=== PATIENT | female | born 1960 | race Caucasian/White ===

== ENCOUNTER 2016-07-21 13:12 | Emergency (ER) | payer OTHER ==
[2016-07-21 13:19] VITALS: TEMP 98.1; BMI 29.2
[2016-07-21] MEDS ORDERED: dilTIAZem HCL 50 MG/10 ML - 10 ML VIAL ONE (13:55)
--- NOTE | 2016-07-21 14:26 | PDOC ---
History of Present Illness <FreddieJolly - Last Filed: 07/21/16 15:17> - General History Source: Patient Exam Limitations: No Limitations <Arabella Burr - Last Filed: 07/21/16 16:37> - General Chief Complaint: Tachycardia Stated Complaint: IRREGULAR HEARTBEAT Time Seen by Provider: 07/21/16 13:47 - History of Present Illness Initial Comments: 07/21/16 14:59 The patient is a 56 year old female with a past medical hx of AFib, fibromyalgia and HTN who presents to the ED complaining of palpitations since this morning. The patient states she was asleep and she woke up from the palpitations, but denies any chest pain. The patient notes she has an implantable manager cardiac cath that was placed 4 months ago. The patient states she saw her Assistant Business Manager, Dr. Cedillo, 4 weeks ago and has her heart monitored with the implant. The patient also notes she had an unremarkable stress test recently and denies a hx of [place]. The patient denies any recent travel. She is compliant with her medication. The patient denies vomiting, nausea, diarrhea The patient denies SOB The patient denies fever, chills Allergies: NKDA Social: No toxic habits reported Surgical: Appendectomy, intestinal resection PCP: Dr. Willams Assistant Business Manager: Dr. Cedillo (Jolly Frazier) Past History <Jolly Frazier - Last Filed: 07/21/16 15:17> - Past Medical History Anemia: No Asthma: No Cancer: No Cardiac Disorders: Yes (murmer, atrial fibrillation) CVA: Yes (tia ?) COPD: No CHF: No Dementia: No Diabetes: No GI Disorders: Yes (DIVERTICULOSIS; POLYP STOMACH; REFLUX; H/H) Disorders: No HTN: Yes Hypercholesterolemia: No Liver Disease: No Suicide Attempt (Hx): No Seizures: No Thyroid Disease: No - Surgical History Abdominal Surgery: Yes Appendectomy: Yes Cardiac Surgery: No Cholecystectomy: Yes GI Surgery: Yes (INTETINAL RESECTION) Lung Surgery: No Neurologic Surgery: No Orthopedic Surgery: No - Immunization History Immunization Up to Date: Yes - Psycho/Social/Smoking Cessation Hx Anxiety: No Suicidal Ideation: No Smoking Status: No Smoking History: Never smoked Have you smoked in the past 12 months: No Number of Cigarettes Smoked Daily: 0 If you are a former smoker, when did you quit?: 1988 Information on smoking cessation initiated: No 'Breaking Loose' booklet given: 05/12/12 Hx Alcohol Use: No Drug/Substance Use Hx: No Substance Use Type: None Hx Substance Use Treatment: No <Arabella Burr - Last Filed: 07/21/16 16:37> - Past Medical History Allergies/Adverse Reactions: Allergies Allergy/AdvReac Type Severity Reaction Status Date / Time No Known Allergies Allergy Verified 07/21/16 13:19 Home Medications: Ambulatory Orders Metoprolol Succinate [Toprol XL -] 12.5 mg PO DAILY 11/15/14 Diltiazem Cd [Cardizem Cd -] 0 mg PO DAILY 07/21/16 Rivaroxaban [Xarelto -] 0 mg PO DAILY 07/21/16 Cardiac Specific PMH - Complaint Specific PMHX Pacemaker: No <Arabella Burr - Last Filed: 07/21/16 16:37> Review of Systems - Review of Systems Able to Perform ROS?: Yes <Jolly Frazier - Last Filed: 07/21/16 15:17> <Arabella Burr - Last Filed: 07/21/16 16:37> - Review of Systems Comments:: 07/21/16 15:01 GENERAL/CONSTITUTIONAL: No: fever, chills, weakness, loss of appetite. HEAD, EYES, EARS, NOSE AND THROAT: No: change in vision, ear pain, discharge, sore throat, throat swelling. CARDIOVASCULAR: +Palpitations. No: chest pain, lightheadedness, syncope RESPIRATORY: No: cough, shortness of breath, wheezing, hemoptysis, stridor. GASTROINTESTINAL: No: nausea, vomiting, abdominal cramping, diarrhea, rectal bleeding, constipation. GENITOURINARY: No: dysuria, hematuria, frequency, urgency, flank pain. MUSCULOSKELETAL: No: back pain, neck pain, joint pain, muscle swelling or pain SKIN: No: lesions, pallor, rash or easy bruising. NEUROLOGIC: No: headache, vertigo, paresthesias, weakness ENDOCRINE: No: unexplained weight gain or loss HEMATOLOGIC/LYMPHATIC: No: anemia, easy bleeding, swelling nodes (Jolly Frazier ) *Physical Exam <Jolly Frazier - Last Filed: 07/21/16 15:17> <Arabella Burr - Last Filed: 07/21/16 16:37> - Vital Signs Last Vital Signs Temp Pulse Resp BP Pulse Ox 98.1 F 74 16 125/74 100 07/21/16 13:17 07/21/16 15:57 07/21/16 15:57 07/21/16 15:57 07/21/16 15:57 - Physical Exam Comments: 07/21/16 15:01 GENERAL: The patient is in no acute distress. HEAD: Normal with no signs of trauma. EYES: PERRLA, EOMI, sclera anicteric, conjunctiva clear. ENT: Ears normal, nares patent, oropharynx clear without exudates. Moist mucous membranes. NECK: Normal range of motion, supple without lymphadenopathy, JVD, or masses. LUNGS: Breath sounds equal, clear to auscultation bilaterally. No wheezes, and no crackles. HEART: +Irregularly irregular without murmur, rub or gallop. ABDOMEN: Soft, nontender, normoactive bowel sounds. No guarding, no rebound. EXTREMITIES: Normal range of motion, no edema. No clubbing or cyanosis. No erythema, or tenderness. NEUROLOGICAL: Cranial nerves II through XII grossly intact. Normal speech. No focal neurological deficits. MUSCULOSKELETAL: Back nontender to palpation, no CVA tenderness SKIN: Warm, Dry, normal turgor, no rashes or lesions noted. (Jolly Frazier) Heart Score/ECG Review #1 ECG reviewed & interpreted by me at: 16:36 <Arabella Burr - Last Filed: 07/21/16 16:37> #1 07/21/16 16:36 Twelve-lead EKG was performed and reviewed by me. Afib rate of 123 bpm. The axis is normal. The intervals are normal - QRS: 80ms, QTc:481ms. There are no ST elevations or depressions. non specific T wave changes (Arabella Burr) ED Treatment Course - LABORATORY CBC & Chemistry Diagram: 07/21/16 14:10 07/21/16 14:10 <Jolly Frazier - Last Filed: 07/21/16 15:17> - LABORATORY CBC & Chemistry Diagram: 07/21/16 14:10 07/21/16 14:10 <Arabella Burr - Last Filed: 07/21/16 16:37> - ADDITIONAL ORDERS Additional order review: Laboratory Results 07/21/16 07/21/16 14:10 14:09 INR 1.51 H PTT (Actin FS) 43.0 H Sodium 138 Potassium 4.0 Chloride 108 H Carbon Dioxide 27 Anion Gap 3 L BUN 13 Creatinine 0.7 Creat Clearance w eGFR > 60 Random Glucose 98 Calcium 8.9 Total Bilirubin 0.4 D AST 16 ALT 20 Alkaline Phosphatase 153 H Creatine Kinase 82 Troponin I < 0.02 Total Protein 7.5 Albumin 3.7 07/21/16 14:10 RBC 4.82 MCV 80.3 MCHC 32.1 RDW 15.5 MPV 8.6 Neutrophils % 58.8 Lymphocytes % 34.3 Monocytes % 4.8 Eosinophils % 1.3 Basophils % 0.8 Medical Decision Making <Jolly Frazier - Last Filed: 07/21/16 15:17> <Arabella Burr - Last Filed: 07/21/16 16:37> - Medical Decision Making 07/21/16 15:[address] Cedillo at 1422, awaiting call back 07/21/16 15:[address] Ventura's office. (Jolly Frazier) 07/21/16 15:39 A portion of this note was documented by scribe services under my direction. I have reviewed the details of the note, within reason, and agree with the documentation with the following case summary and management plan written by me. Nursing documentation reviewed and incorporated into medical decision making This pt is a 56 yo F 07/21/16 15:40 Laboratory Tests 07/21/16 07/21/16 14:10 14:10 WBC 6.9 Hgb 12.4 Hct 38.7 Plt Count 329 D Sodium 138 Potassium 4.0 Chloride 108 H Carbon Dioxide 27 BUN 13 Creatinine 0.7 Random Glucose 98 Alkaline Phosphatase 153 H Creatine Kinase 82 Troponin I < 0.02 Pt seen in the ER by Dr. Cedillo in the ER Pt can be discharged to home Pt should be on a higher dose of Metoprolol (50mg po daily) I have contacted Dr Ventura He is not available to speak with me now I have contacted [employer] to interrogate her Loop recorder (La[employer]wan [phone] ) I left a voicemail Pt will be discharged to home follow up with Assistant Business Manager within 1 week Clinical impression: Afib with RVR (Arabella Burr) *DC/Admit/Observation/Transfer <Jolly Frazier - Last Filed: 07/21/16 15:17> - Discharge Dispostion Admit: No <Arabella Burr - Last Filed: 07/21/16 16:37> Diagnosis at time of Disposition: Atrial fibrillation with RVR - Discharge Dispostion Disposition: HOME Condition at time of disposition: Improved - Referrals Referrals: Adrianna Willams MD [Primary Care Provider] - - Patient Instructions Printed Discharge Instructions: DI for Atrial Fibrillation Additional Instructions: Ms Stewart Thank you for coming to the ER today Please increase your metoprolol (I will send you with a new prescription) Please follow up with your Cardiololgist within 1 week Return to the ER immediately for any new symptoms, concerns or complaints - Post Discharge Activity Work/School Note: Back to Work - Attestations Scribe Attestion: 07/21/16 15:02 Documentation prepared by Jolly Frazier, acting as medical delivery driver for Arabella Burr MD/DO. (Jolly Frazier)
[2016-07-21 14:38] LABS: BASOPHIL 0.8 % (0-2.0); EOSINOPHIL 1.3 % (0-4.5); MCH 25.8 pg (25.7-33.7); MCHC 32.1 g/dl (32.0-36.0); MEAN CELL VOLUME 80.3 fl (80-96); MEAN PLT VOLUME 8.6 fl (7.5-11.1); NEUTROPHILS 58.8 % (42.8-82.8); PLATELET COUNT 329 K/MM3 (134-434); RDW 15.5 % (11.6-15.6); WHITE BLOOD COUNT 6.9 K/mm3 (4.0-10.0)
[2016-07-21 14:54] LABS: ALBUMIN 3.7 g/dl (3.4-5.0); ANION GAP 3 (8-16); BILIRUBIN,TOTAL 0.4 mg/dL (0.2-1.0); CALCIUM 8.9 mg/dL (8.5-10.1); CO2 27 mmol/L (21-32); CREATININE 0.7 mg/dL (0.55-1.02); GLUCOSE,RANDOM 98 mg/dL (74-106); SGOT/AST 16 U/L (15-37); SGPT/ALT 20 U/L (12-78); TOT PROT 7.5 g/dl (6.4-8.2)
[2016-07-21 14:56] LABS: ALK PHOS 153 U/L (45-117); TROPONIN I < 0.02 ng/ml (0.00-0.05)
--- NOTE | 2016-07-21 15:01 | CONSULT ---
Consult Consult Specialty:: cardiology Reason for Consultation:: palpitations; shortness of breath - History of Present Illness History of Present Illness: 56 year old female with a past medical hx of AFib, fibromyalgia and HTN who presents to the ED complaining of palpitations since this morning. The patient states she was asleep and she woke up from the palpitations, but denies any chest pain. The patient notes she has an implantable bus driver/monitor that was placed 4 months ago. The patient states she saw her Grinding Wheel Inspector, Dr. Cedillo , 4 weeks ago and has her heart monitored with the implant. Unremarkable stress test recently and denies a hx of [place]. The patient denies any recent travel. She is compliant with her medications. The patient denies vomiting, nausea, diarrhea The patient denies SOB The patient denies fever, chills Allergies: NKDA Social: No toxic habits reported Surgical: Appendectomy, intestinal resection PCP: Dr. Willams Grinding Wheel Inspector: Dr. 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: Other (Restless legs syndrome) Cardio/Vascular: Yes: HTN, Murmur (H/O Rheumatoid fever in childhood), Other ( rheumatic fever) Gastrointestinal: Yes: Diverticulitis ...LMP: 06/12/14 Heme/Onc: No: Anemia Rheumatology: Yes: Fibromyalgia - Past Surgical History Past Surgical History: Yes: Appendectomy, Cholecystectomy, Tonsillectomy - Alcohol/Substance Use Hx Alcohol Use: No History of Substance Use: reports: None - Smoking History Smoking history: Never smoked Have you smoked in the past 12 months: No Aproximately how many cigarettes per day: 0 If you are a former smoker, when did you quit?: 1988 - Social History ADL: Independent Occupation: unemployed History of Recent Travel: No Home Medications - Allergies Allergies/Adverse Reactions: Allergies Allergy/AdvReac Type Severity Reaction Status Date / Time No Known Allergies Allergy Verified 07/21/16 13:19 - Home Medications Home Medications: Ambulatory Orders Rivaroxaban [Xarelto -] 20 mg PO DAILY #0 09/22/16 Family Disease History - Family Disease History Family Disease History: Heart Disease: Mother ( [place]), [place]: Father (dying from prostate [place]) Review of Systems - Review of Systems Constitutional: reports: No Symptoms Eyes: reports: No Symptoms HENT: reports: No Symptoms Neck: reports: No Symptoms Cardiovascular: reports: Palpitations Respiratory: reports: No Symptoms Gastrointestinal: reports: No Symptoms Genitourinary: reports: No Symptoms Breasts: reports: No Symptoms Reported Musculoskeletal: reports: No Symptoms Integumentary: reports: No Symptoms Neurological: reports: No Symptoms Endocrine: reports: No Symptoms Hematology/Lymphatic: reports: No Symptoms Psychiatric: reports: No Symptoms - Risk Factors Known Risk Factors: Yes: Age, Hypertension Vital Signs: Vital Signs Temperature 98.1 F 07/21/16 13:17 Pulse Rate 123 H 07/21/16 13:17 Respiratory Rate 18 07/21/16 13:17 Blood Pressure 135/102 07/21/16 13:17 O2 Sat by Pulse Oximetry (%) 100 07/21/16 13:17 Constitutional: Yes: Anxious Eyes: Yes: WNL HENT: Yes: WNL Neck: Yes: WNL Respiratory: Yes: WNL Gastrointestinal: Yes: Soft Renal/: No: Anuria Cardiovascular: Yes: Tachycardia, Pulse Irregular JVD: No Carotid Bruit: No PMI: Non-Displaced Heart Sounds: Yes: S1 (varies in intensity), S2 Murmur: Yes: Systolic Murmur, Grade 1 Musculoskeletal: Yes: WNL Extremities: Yes: WNL Edema: No Peripheral Pulses WNL: Yes Integumentary: Yes: WNL Neurological: Yes: WNL Psychiatric: Yes: Other (anxiety) - Other Data Labs, Other Data: CBC, BMP 07/21/16 14:10 07/21/16 14:10 Troponin, BNP 07/21/16 14:10 Troponin I < 0.02 Troponin, BNP 07/21/16 14:10 Troponin I < 0.02 Imaging - Results EKG: Image Reviewed (AF, RVR) Problem List - Problems (1) Atrial fibrillation with RVR Assessment/Plan: On metoprolol and diltiazem for HR control. On rivaroxaban for anticoagulation. F/u serial EKG, telemetry. Serial TNIs. TSH. Hydration. ECHO for LVEF. Interroate Reveal Link monitor. Code(s): I48.91 - UNSPECIFIED ATRIAL FIBRILLATION (2) Hypertension Code(s): I10 - ESSENTIAL (PRIMARY) HYPERTENSION Qualifiers: Hypertension type: essential hypertension Qualified Code(s): I10 - Essential (primary) hypertension (3) Overweight Code(s): E66.3 - OVERWEIGHT (4) Palpitations Code(s): R00.2 - PALPITATIONS (5) Sorethroat Code(s): J02.9 - ACUTE PHARYNGITIS, UNSPECIFIED
[2016-07-21 15:22] LABS: INR 1.51 (0.82-1.09); PROTHROMBIN TIME (PATIENT) 16.7 SEC (9.98-11.88)
[2016-07-21 16:02] VITALS: BP 125/74; PULSE 74
[2016-07-21 16:37] LABS: THYROID STIMULATING HORMONE 1.88 uIU/ml (0.358-3.74)
--- NOTE | 2016-07-23 10:26 | EKG ---
Test Reason : Blood Pressure : / mmHG Vent. Rate : 123 BPM Atrial Rate : 277 BPM P-R Int : 000 ms QRS Dur : 080 ms QT Int : 336 ms P-R-T Axes : 000 -11 -19 degrees QTc Int : 481 ms ATRIAL FIBRILLATION WITH RAPID VENTRICULAR RESPONSE NONSPECIFIC ST AND T WAVE ABNORMALITY ABNORMAL ECG WHEN COMPARED WITH ECG OF 10-DEC-2015 23:30, ATRIAL FIBRILLATION HAS REPLACED SINUS RHYTHM VENT. RATE HAS INCREASED BY 64 BPM BORDERLINE CRITERIA FOR ANTERIOR INFARCT ARE NO LONGER PRESENT ST NOW DEPRESSED IN ANTERIOR LEADS NONSPECIFIC T WAVE ABNORMALITY, WORSE IN INFERIOR LEADS T WAVE INVERSION NOW EVIDENT IN LATERAL LEADS Confirmed by MESHA DRAKE MD ([id number]) on 07/23/2016 10:26:15 AM Referred By: Confirmed By:MESHA DRAKE MD
== END 2016-07-21 16:15 | disposition home or self-care (01) ==
LOC: JER 13:12
DX: I48.91 Unspecified atrial fibrillation (principal); Z79.01 Long term (current) use of anticoagulants; I10 Essential (primary) hypertension; R01.1 Cardiac murmur, unspecified; Z86.73 Personal history of transient ischemic attack (TIA), and cerebral infarction without residual deficits
CPT/HCPCS: 36415; 80053; 82550; 84443; 84484; 85025; 85610; 85730; 93005; 93010; 99283-25

== ENCOUNTER 2016-09-20 10:55 | Observation (INO) | payer OTHER ==
[2016-09-20 11:03] VITALS: BMI 31.1
--- NOTE | 2016-09-20 12:37 | PDOC ---
History of Present Illness - History of Present Illness Initial Comments: 09/20/16 12:34 56-year-old female with a past medical history of hypertension and atrial fibrillation, and fibromyalgia Patient states that his morning she felt very lightheaded and presyncopal, after dropping her daughter from school She also felt that her balance was off When she got home at 10 AM she took her blood pressure and heart rate at home, and her blood pressure was 143/89, normal heart rate was 43 She checked her heart rate again and it was 49 She continues to feel very lightheaded and presyncopal, although she did not pass out She denies any chest pain or syncope, but admits to near syncope She also admits to nausea She states that yesterday she accidentally took an extra dose of Cardizem CD last night, after taking a dose in the morning Her symptoms started this morning She denies any recent intercurrent illnesses, or any other complaints at this time Remainder the review of systems negative <Savanah Rothman - Last Filed: 09/20/16 15:14> <Candis Mckinnon - Last Filed: 09/20/16 16:07> - General Chief Complaint: Lightheaded Stated Complaint: DIZZY Time Seen by Provider: 09/20/16 12:23 Past History - Past Medical History Anemia: No Asthma: No Cancer: No Cardiac Disorders: Yes (murmer, atrial fibrillation) CVA: Yes (tia ?) COPD: No CHF: No Dementia: No Diabetes: No GI Disorders: Yes (DIVERTICULOSIS; POLYP STOMACH; REFLUX; H/H) Disorders: No HTN: Yes Hypercholesterolemia: No Liver Disease: No Suicide Attempt (Hx): No Seizures: No Thyroid Disease: No - Surgical History Abdominal Surgery: Yes Appendectomy: Yes Cardiac Surgery: No Cholecystectomy: Yes GI Surgery: Yes (INTETINAL RESECTION) Lung Surgery: No Neurologic Surgery: No Orthopedic Surgery: No - Immunization History Immunization Up to Date: Yes - Psycho/Social/Smoking Cessation Hx Anxiety: No Suicidal Ideation: No Smoking Status: No Smoking History: Never smoked Have you smoked in the past 12 months: No Number of Cigarettes Smoked Daily: 0 If you are a former smoker, when did you quit?: 1988 Information on smoking cessation initiated: No 'Breaking Loose' booklet given: 05/12/12 Hx Alcohol Use: No Drug/Substance Use Hx: No Substance Use Type: None Hx Substance Use Treatment: No <Savanah Rothman - Last Filed: 09/20/16 15:14> <Candis Mckinnon - Last Filed: 09/20/16 16:07> - Past Medical History Allergies/Adverse Reactions: Allergies Allergy/AdvReac Type Severity Reaction Status Date / Time No Known Allergies Allergy Verified 07/21/16 13:19 Home Medications: Ambulatory Orders Metoprolol Succinate [Toprol XL -] 12.5 mg PO DAILY 11/15/14 Diltiazem Cd [Cardizem Cd -] 0 mg PO DAILY 07/21/16 Rivaroxaban [Xarelto -] 50 mg PO DAILY 07/21/16 Review of Systems - Review of Systems Able to Perform ROS?: Yes Comments:: 09/20/16 12:35 12 point review of systems is as per history of present illness and otherwise negative <Savanah Rothman - Last Filed: 09/20/16 15:14> *Physical Exam - Vital Signs Last Vital Signs Temp Pulse Resp BP Pulse Ox 97.4 F L 56 L 18 184/75 100 09/20/16 11:00 09/20/16 11:00 09/20/16 11:00 09/20/16 11:00 09/20/16 11:00 - Physical Exam Comments: 09/20/16 12:36 Physical exam Last Vital Signs Temp Pulse Resp BP Pulse Ox 97.4 F L 56 L 18 184/75 100 09/20/16 11:00 09/20/16 11:00 09/20/16 11:00 09/20/16 11:00 09/20/16 11:00 GENERAL: The patient is awake, alert, and fully oriented, and in no apparent distress. HEAD: Normal with no signs of trauma. EYES: Sclera anicteric ENT: Moist mucous membranes. NECK: Normal range of motion, supple LUNGS: Breath sounds equal, clear to auscultation bilaterally. No wheezes, and no crackles. HEART: Regular rate and rhythm, 54, normal S1 and S2 without murmur, rub or gallop. ABDOMEN: Soft, nontender, normoactive bowel sounds. No guarding, no rebound. No masses appreciated. EXTREMITIES: Normal range of motion, no edema. No clubbing or cyanosis. No cords, erythema, or tenderness. NEUROLOGICAL: Cranial nerves II through XII grossly intact. Normal speech, normal gait. PSYCH: Normal mood, normal affect. SKIN: Warm, Dry, normal turgor, no rashes or lesions noted. <Savanah Rothman - Last Filed: 09/20/16 15:14> - Vital Signs Last Vital Signs Temp Pulse Resp BP Pulse Ox 97.4 F L 56 L 18 184/75 100 09/20/16 11:00 09/20/16 11:00 09/20/16 11:00 09/20/16 11:00 09/20/16 11:00 <Candis Mckinnon - Last Filed: 09/20/16 16:07> ED Treatment Course - LABORATORY CBC & Chemistry Diagram: 09/20/16 14:00 09/20/16 14:00 - RADIOLOGY Radiology Studies Ordered: Category Date Time Status CHEST X-RAY PORTABLE* [RAD] Stat Radiology 09/20/16 12:33 Ordered <Savanah Rothman - Last Filed: 09/20/16 15:14> - LABORATORY CBC & Chemistry Diagram: 09/20/16 14:00 09/20/16 14:00 - ADDITIONAL ORDERS Additional order review: 09/20/16 14:00 RBC 4.83 MCV 80.9 MCHC 32.9 RDW 16.3 H MPV 8.5 - RADIOLOGY Radiograph Interpretation: 09/20/16 15:05 EXAM: RAD/CHEST X-RAY PORTABLE IMPRESSION: Since 09/15/2015, the lungs are clear. There is a normal aorta and normal [place]. There is a large heart. The angles are sharp. The soft tissues are intact. Significant arthritic changes are not seen. <Candis Mckinnon - Last Filed: 09/20/16 16:07> Medical Decision Making - Medical Decision Making 09/20/16 12:37 56-year-old female with bradycardia and near syncope after accidentally taking an extra dose of Cardizem CD last night 09/20/16 13:48 EKG Sinus bradycardia with a heart rate of 50 Left axis deviation -20 Normal AV and IV conduction time, normal QTC There are inverted T waves in V1 through V3 When compared to the EKG of 07/21/16 Atrial fibrillation was present on the prior EKG Flipped T waves were also present in V1 and V2 on the prior EKG 09/20/16 15:03 Chest x-ray- Enlarged heart, no acute pathology 09/20/16 15:14 Laboratory Results - last 24 hr 09/20/16 09/20/16 09/20/16 14:00 14:00 14:00 WBC 8.0 RBC 4.83 Hgb 12.8 Hct 39.0 MCV 80.9 MCHC 32.9 RDW 16.3 H Plt Count 279 MPV 8.5 Sodium 144 Potassium 4.3 Chloride 107 Carbon Dioxide 28 Anion Gap 9 BUN 15 Creatinine 0.6 Creat Clearance w eGFR > 60 Random Glucose 82 Calcium 8.8 Magnesium 2.2 Total Bilirubin 0.5 D AST 14 L ALT 16 Alkaline Phosphatase 129 H Creatine Kinase 71 Troponin I < 0.02 Total Protein 6.8 Albumin 3.6 Patient remains on the monitor with heart rate of sinus bradycardia between 40 and 56 Impression-lightheadedness and bradycardia due to accidental calcium channel wally overdose Case discussed with Dr. Adrianna Willams-will admit Will page Dr. Cedillo-patient's seat coverer <Savanah Rothman - Last Filed: 09/20/16 15:14> - Medical Decision Making 09/20/16 15:[address] Adrianna Willams. Response by Dr. Adrianna Mariscal at 15:13. Case was discussed. 09/20/16 15:[address] Cedillo. 09/20/16 16:[address] Cedillo. <Candis Mckinnon - Last Filed: 09/20/16 16:07> *DC/Admit/Observation/Transfer - Discharge Dispostion Admit: Yes <Savanah Rothman - Last Filed: 09/20/16 15:14> - Attestations Scribe Attestion: 09/20/16 15:05 Documentation prepared by Candis Mckinnon, acting as medical director of hospice for Savanah Rothman MD. <Candis Mckinnon - Last Filed: 09/20/16 16:07> Diagnosis at time of Disposition: Calcium channel wally overdose, Bradycardia - Referrals
[2016-09-20] MEDS ORDERED: SODIUM CHLORIDE 1,000 ML IV SCH (12:45)
[2016-09-20 14:31] LABS: MCH 26.6 pg (25.7-33.7); MCHC 32.9 g/dl (32.0-36.0); MEAN CELL VOLUME 80.9 fl (80-96); MEAN PLT VOLUME 8.5 fl (7.5-11.1); PLATELET COUNT 279 K/MM3 (134-434); RDW 16.3 % (11.6-15.6)
[2016-09-20 15:07] LABS: ALBUMIN 3.6 g/dl (3.4-5.0); ANION GAP 9 (8-16); CALCIUM 8.8 mg/dL (8.5-10.1); CO2 28 mmol/L (21-32); GLUCOSE,RANDOM 82 mg/dL (74-106); MAGNESIUM 2.2 mg/dL (1.8-2.4)
[2016-09-20 15:08] LABS: TROPONIN I < 0.02 ng/ml (0.00-0.05)
[2016-09-20 15:10] LABS: ALK PHOS 129 U/L (45-117); BILIRUBIN,TOTAL 0.5 mg/dL (0.2-1.0); CREATININE 0.6 mg/dL (0.55-1.02); SGOT/AST 14 U/L (15-37); SGPT/ALT 16 U/L (12-78); TOT PROT 6.8 g/dl (6.4-8.2)
--- NOTE | 2016-09-20 18:00 | EKG ---
Test Reason : Blood Pressure : / mmHG Vent. Rate : 050 BPM Atrial Rate : 050 BPM P-R Int : 180 ms QRS Dur : 078 ms QT Int : 466 ms P-R-T Axes : 033 -20 016 degrees QTc Int : 424 ms SINUS BRADYCARDIA CANNOT RULE OUT ANTERIOR INFARCT , AGE UNDETERMINED ABNORMAL ECG WHEN COMPARED WITH ECG OF 21-JUL-2016 13:53, SINUS RHYTHM HAS REPLACED ATRIAL FIBRILLATION VENT. RATE HAS DECREASED BY 73 BPM T WAVE VARIATION T WAVE INVERSION NO LONGER EVIDENT IN LATERAL LEADS Confirmed by GLORY SUAREZ MD ([id number]) on 09/20/2016 5:59:58 PM Referred By: Confirmed By:GLORY SUAREZ MD
[2016-09-20] MEDS ORDERED: RIVAROXABAN 20 MG TABLET PO ONE ×2 (19:00→22:15)
--- NOTE | 2016-09-21 01:40 | CON.CARD ---
[id number] - History of Present Illness History of Present Illness: 56-year-old female with a past medical history of hypertension and atrial fibrillation, and fibromyalgia Patient states that his morning she felt very lightheaded and presyncopal, after dropping her daughter from school She also felt that her balance was off When she got home at 10 AM she took her blood pressure and heart rate at home, and her blood pressure was 143/89, normal heart rate was 43 She checked her heart rate again and it was 49 She continues to feel very lightheaded and presyncopal, although she did not pass out She denies any chest pain or syncope, but admits to near syncope She also admits to nausea She states that yesterday she accidentally took an extra dose of Cardizem CD last night, after taking a dose in the morning Her symptoms started this morning She denies any recent intercurrent illnesses, or any other complaints at this time Remainder the review of systems negative - History Source History Provided By: Medical Record - Past Medical History 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: 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: Other (Restless legs syndrome) Cardio/Vascular: Yes: HTN, Murmur (H/O Rheumatoid fever in childhood), Other ( rheumatic fever) Gastrointestinal: Yes: Diverticulitis Reproductive: Yes: Postmenopausal ...LMP: 06/12/14 ...: No Psych: Yes: Anxiety Rheumatology: Yes: Fibromyalgia - Past Surgical History Past Surgical History: Yes: Appendectomy, Cholecystectomy, Tonsillectomy - Alcohol/Substance Use Hx Alcohol Use: No History of Substance Use: reports: None - Smoking History Smoking history: Never smoked Have you smoked in the past 12 months: No Aproximately how many cigarettes per day: 0 If you are a former smoker, when did you quit?: 1988 - Social History ADL: Independent Occupation: unemployed History of Recent Travel: No Home Medications - Allergies Allergies/Adverse Reactions: Allergies Allergy/AdvReac Type Severity Reaction Status Date / Time No Known Allergies Allergy Verified 07/21/16 13:19 - Home Medications Home Medications: Ambulatory Orders Rivaroxaban [Xarelto -] 20 mg PO DAILY #0 09/22/16 Family Disease History - Family Disease History Family Disease History: Heart Disease: Mother ( [place]), [place]: Father (dying from prostate [place]) Review of Systems - Review of Systems Constitutional: reports: Weakness Gastrointestinal: reports: No Symptoms Genitourinary: reports: No Symptoms Breasts: reports: No Symptoms Reported Musculoskeletal: reports: Muscle Weakness Integumentary: reports: No Symptoms Neurological: reports: Dizziness Endocrine: reports: No Symptoms Hematology/Lymphatic: reports: No Symptoms Psychiatric: reports: Anxiety - Risk Factors Known Risk Factors: Yes: Age, Hypercholesterolemia, Hypertension Vital Signs: Vital Signs Temperature 98.2 F 09/20/16 17:30 Pulse Rate 55 L 09/20/16 17:30 Respiratory Rate 18 09/20/16 17:30 Blood Pressure 140/73 09/20/16 17:30 O2 Sat by Pulse Oximetry (%) 100 09/20/16 16:20 Abnormal Lab Results 09/20/16 09/20/16 14:00 14:00 RDW 16.3 H AST 14 L Alkaline Phosphatase 129 H Constitutional: Yes: Anxious Eyes: Yes: WNL HENT: Yes: WNL Neck: Yes: WNL Respiratory: Yes: Regular Gastrointestinal: Yes: Soft Cardiovascular: Yes: Bradycardia JVD: No Carotid Bruit: No PMI: Non-Displaced Heart Sounds: Yes: S1, S2 Murmur: Yes: Systolic Murmur, Grade 1 Edema: No Peripheral Pulses WNL: Yes Integumentary: Yes: WNL Neurological: Yes: Alert, Oriented, Weakness Psychiatric: Yes: WNL Imaging - Results Chest X-ray: Image Reviewed (no acute pathology) EKG: Image Reviewed (sinus bradycardia) Problem List - Problems (1) Bradycardia Assessment/Plan: Off diltiazem; f/u HR and BP. F/u ECHO (normal LVEF 08/2015) for LVEF, chamber sizes, valve status. Code(s): R00.1 - BRADYCARDIA, UNSPECIFIED (2) Calcium channel wally overdose Code(s): T46.1X1A - POISONING BY CALCIUM-CHANNEL BLOCKERS, ACCIDENTAL, INIT Qualifiers: Encounter type: initial encounter Injury intent: accidental or unintentional Qualified Code(s): T46.1X1A - Poisoning by calcium-channel blockers, accidental (unintentional), initial encounter (3) Hypertension Code(s): I10 - ESSENTIAL (PRIMARY) HYPERTENSION Qualifiers: Hypertension type: essential hypertension Qualified Code(s): I10 - Essential (primary) hypertension (4) Atrial fibrillation Assessment/Plan: on rivaroxaban for anticoagulation. Diltiazem held presently. TFTs WNL 2016. Code(s): I48.91 - UNSPECIFIED ATRIAL FIBRILLATION Qualifiers: Atrial fibrillation type: paroxysmal Qualified Code(s): I48.0 - Paroxysmal atrial fibrillation
--- NOTE | 2016-09-21 09:09 | HP ---
Admitting History and Physical - Primary Care Physician PCP: Adrianna Willams - Admission Chief Complaint: dizziness, presyncopal History of Present Illness: ER HISTORY History of Present Illness Initial Comments: 09/20/16 12:34 56-year-old female with a past medical history of hypertension and atrial fibrillation, and fibromyalgia Patient states that his morning she felt very lightheaded and presyncopal, after dropping her daughter from school She also felt that her balance was off When she got home at 10 AM she took her blood pressure and heart rate at home, and her blood pressure was 143/89, normal heart rate was 43 She checked her heart rate again and it was 49 She continues to feel very lightheaded and presyncopal, although she did not pass out She denies any chest pain or syncope, but admits to near syncope She also admits to nausea She states that yesterday she accidentally took an extra dose of Cardizem CD last night, after taking a dose in the morning Her symptoms started this morning She denies any recent intercurrent illnesses, or any other complaints at this time Remainder the review of systems negative PT SEEN BY ME IN TELEMETRY She admits that without thinking, she took an extra dose of Cardizem CD night before the events occurred. She called on -call doctor- Dr Baldwin - who advised her to take rest and avoid too much strenuous activities , but advised her to go to ER if she felt symptomatic which she did not at that night. The next day she felt ok , but started feeling very dizzy and lightheaded after she dropped her daughter off to school. She has been having c/o lightheadedness for a few weeks and had seen ENT who did nor think this is related to inner ear problems and she saw her dock hand two months ago and was told she was fine. She had a negative stress test a year ago. Today she definitely feels better , but has slight lightheadedness, not as bad as yesterday No chest pain or palpitations. 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: Other (Restless legs syndrome) Cardiovascular: Yes: AFIB (paroxysmal), HTN, Murmur (H/O Rheumatoid fever in childhood), Other (rheumatic fever) Gastrointestinal: Yes: Diverticulitis ...LMP: 06/12/14 ...: No Psych: Yes: Anxiety Rheumatology: Yes: Fibromyalgia - Past Surgical History Past Surgical History: Yes: Appendectomy, Cholecystectomy, Tonsillectomy - Smoking History Smoking history: Never smoked Have you smoked in the past 12 months: No Aproximately how many cigarettes per day: 0 If you are a former smoker, when did you quit?: 1988 - Alcohol/Substance Use Hx Alcohol Use: No History of Substance Use: reports: None - Social History ADL: Independent Occupation: unemployed History of Recent Travel: No Home Medications - Allergies Allergies/Adverse Reactions: Allergies Allergy/AdvReac Type Severity Reaction Status Date / Time No Known Allergies Allergy Verified 07/21/16 13:19 - Home Medications Home Medications: Ambulatory Orders Metoprolol Succinate [Toprol XL -] 12.5 mg PO DAILY 11/15/14 Diltiazem Cd [Cardizem Cd -] 0 mg PO DAILY 07/21/16 Rivaroxaban [Xarelto -] 50 mg PO DAILY 07/21/16 Family Disease History - Family Disease History Family Disease History: Heart Disease: Mother ( [place]), [place]: Father (dying from prostate [place]) Review of Systems - Review of Systems Constitutional: denies: Chills, Weakness Cardiovascular: denies: Chest Pain, Palpitations Neurological: reports: Dizziness. denies: Headache, Incoordination, Numbness, Seizure, Syncope, Tremors, Unsteady Gait, Weakness Physical Examination Vital Signs: Vital Signs Temperature 98.2 F 09/21/16 06:00 Pulse Rate 60 09/21/16 06:00 Respiratory Rate 20 09/21/16 06:00 Blood Pressure 134/75 09/21/16 06:00 O2 Sat by Pulse Oximetry (%) 100 09/20/16 16:20 Constitutional: Yes: No Distress, Calm Cardiovascular: Yes: Regular Rate and Rhythm, Murmur Respiratory: Yes: CTA Bilaterally Gastrointestinal: Yes: Normal Bowel Sounds, Soft. No: Tenderness Edema: No Psychiatric: Yes: Alert, Oriented Labs: Laboratory Results - last 24 hr 09/20/16 09/20/16 09/20/16 14:00 14:00 14:00 WBC 8.0 RBC 4.83 Hgb 12.8 Hct 39.0 MCV 80.9 MCHC 32.9 RDW 16.3 H Plt Count 279 MPV 8.5 Sodium 144 Potassium 4.3 Chloride 107 Carbon Dioxide 28 Anion Gap 9 BUN 15 Creatinine 0.6 Creat Clearance w eGFR > 60 Random Glucose 82 Calcium 8.8 Magnesium 2.2 Total Bilirubin 0.5 D AST 14 L ALT 16 Alkaline Phosphatase 129 H Creatine Kinase 71 Troponin I < 0.02 Total Protein 6.8 Albumin 3.6 Imaging - Results Chest X-ray: Image Reviewed (clear) EKG: Image Reviewed (Sinus bradycardia) Problem List - Problems (1) Atrial fibrillation Code(s): I48.91 - UNSPECIFIED ATRIAL FIBRILLATION Qualifiers: Atrial fibrillation type: paroxysmal Qualified Code(s): I48.0 - Paroxysmal atrial fibrillation (2) Bradycardia Code(s): R00.1 - BRADYCARDIA, UNSPECIFIED (3) Calcium channel wally overdose Code(s): T46.1X1A - POISONING BY CALCIUM-CHANNEL BLOCKERS, ACCIDENTAL, INIT Qualifiers: Encounter type: initial encounter Injury intent: accidental or unintentional Qualified Code(s): T46.1X1A - Poisoning by calcium-channel blockers, accidental (unintentional), initial encounter (4) Hypertension Code(s): I10 - ESSENTIAL (PRIMARY) HYPERTENSION Qualifiers: Hypertension type: essential hypertension Qualified Code(s): I10 - Essential (primary) hypertension Assessment/Plan PLAN Telemetry shows sinus bradycardia-- rates have been 50- 60's here She is better Check Thyroid function tests Will order Carotid doppler as she has been feeling lightheaded prior to the current episode CT head to be done since she was ? forgetful and h/o lightheadedness Beta blockers and Cardizem on hold On Xarelto for parox Afib Cardiology evaluation Place pt on observation DVT prophylaxis-- pt is on Xarelto decrease Iv fluids
[2016-09-21] MEDS: SODIUM CHLORIDE 1,000 ML IV SCH (10:00)
[2016-09-21 10:35] LABS: FREE T4 0.97 ng/dl (0.76-1.46); THYROID STIMULATING HORMONE 1.52 uIU/ml (0.358-3.74)
--- NOTE | 2016-09-21 11:19 | PN ---
Progress Note, Physician History of Present Illness: 56-year-old female with a past medical history of hypertension and atrial fibrillation, and fibromyalgia Patient states that his morning she felt very lightheaded and presyncopal, after dropping her daughter from school She also felt that her balance was off When she got home at 10 AM she took her blood pressure and heart rate at home, and her blood pressure was 143/89, normal heart rate was 43 She checked her heart rate again and it was 49 She continues to feel very lightheaded and presyncopal, although she did not pass out She denies any chest pain or syncope, but admits to near syncope She also admits to nausea She states that yesterday she accidentally took an extra dose of Cardizem CD last night, after taking a dose in the morning Her symptoms started this morning She denies any recent intercurrent illnesses, or any other complaints at this time Remainder the review of systems negative - Current Medication List Current Medications: Active Medications Sodium Chloride (Normal Saline -) 1,000 mls @ 80 mls/hr IV ASDIR LISA - Objective Vital Signs: Vital Signs Temperature 97.8 F 09/21/16 09:00 Pulse Rate 70 09/21/16 09:00 Respiratory Rate 18 09/21/16 09:00 Blood Pressure 143/75 09/21/16 09:00 O2 Sat by Pulse Oximetry (%) 95 09/21/16 09:00 Eyes: Yes: WNL, Conjunctiva Clear, EOM Intact HENT: Yes: WNL, Atraumatic, Normocephalic Neck: Yes: WNL, Supple, Trachea Midline Cardiovascular: Yes: WNL, Regular Rate and Rhythm Respiratory: Yes: WNL, Regular, CTA Bilaterally Gastrointestinal: Yes: WNL, Normal Bowel Sounds Genitourinary: Yes: WNL Musculoskeletal: Yes: WNL Extremities: Yes: WNL Edema: No Integumentary: Yes: WNL Neurological: Yes: WNL, Alert, Oriented ...Motor Strength: WNL Psychiatric: Yes: WNL Problem List - Problems (1) Atrial fibrillation Code(s): I48.91 - UNSPECIFIED ATRIAL FIBRILLATION Qualifiers: Atrial fibrillation type: paroxysmal Qualified Code(s): I48.0 - Paroxysmal atrial fibrillation (2) Bradycardia Code(s): R00.1 - BRADYCARDIA, UNSPECIFIED (3) Calcium channel wally overdose Code(s): T46.1X1A - POISONING BY CALCIUM-CHANNEL BLOCKERS, ACCIDENTAL, INIT Qualifiers: Encounter type: initial encounter Injury intent: accidental or unintentional Qualified Code(s): T46.1X1A - Poisoning by calcium-channel blockers, accidental (unintentional), initial encounter (4) Atrial fibrillation with RVR Code(s): I48.91 - UNSPECIFIED ATRIAL FIBRILLATION (5) Chest pain Code(s): R07.9 - CHEST PAIN, UNSPECIFIED (6) Diverticulitis Code(s): K57.92 - DVTRCLI OF INTEST, PART UNSP, W/O PERF OR ABSCESS W/O BLEED (7) Hx of rheumatic fever Code(s): Z86.79 - PERSONAL HISTORY OF OTHER DISEASES OF THE CIRCULATORY SYSTEM (8) Hypertension Code(s): I10 - ESSENTIAL (PRIMARY) HYPERTENSION Qualifiers: Hypertension type: essential hypertension Qualified Code(s): I10 - Essential (primary) hypertension (9) Hypotension Code(s): I95.9 - HYPOTENSION, UNSPECIFIED (10) Overweight Code(s): E66.3 - OVERWEIGHT (11) Palpitations Code(s): R00.2 - PALPITATIONS (12) Paroxysmal atrial fibrillation Code(s): I48.0 - PAROXYSMAL ATRIAL FIBRILLATION (13) Sorethroat Code(s): J02.9 - ACUTE PHARYNGITIS, UNSPECIFIED Assessment/Plan Problems (1) Bradycardia Assessment/Plan: Off diltiazem; f/u HR and BP. F/u ECHO (normal LVEF 08/2015) for LVEF, chamber sizes, valve status. Code(s): R00.1 - BRADYCARDIA, UNSPECIFIED (2) Calcium channel wally overdose Code(s): T46.1X1A - POISONING BY CALCIUM-CHANNEL BLOCKERS, ACCIDENTAL, INIT (3) Hypertension Code(s): I10 - ESSENTIAL (PRIMARY) HYPERTENSION Qualifiers: Hypertension type: essential hypertension Qualified Code(s): I10 - Essential (primary) hypertension (4) Atrial fibrillation Assessment/Plan: on rivaroxaban for anticoagulation. Diltiazem held presently. TFTs WNL 2015. Code(s): I48.91 - UNSPECIFIED ATRIAL FIBRILLATION
[2016-09-22] MEDS: SODIUM CHLORIDE 1,000 ML IV SCH (08:00)
--- NOTE | 2016-09-22 10:07 | DS ---
[id number] Rate 18 09/22/16 06:00 Blood Pressure 121/74 09/22/16 06:00 O2 Sat by Pulse Oximetry (%) 97 09/22/16 06:00 Constitutional: Yes: No Distress, Calm Cardiovascular: Yes: Regular Rate and Rhythm Respiratory: Yes: CTA Bilaterally Gastrointestinal: Yes: Normal Bowel Sounds, Soft. No: Abdomen, Obese, Tenderness Edema: No Discharge Summary Reason For Visit: CALCIUM CHANNEL TIFFANIE OVERDOSE Current Active Problems Atrial fibrillation (Acute) Bradycardia (Acute) Calcium channel tiffanie overdose (Acute) Hospital Course: patient was admitted to telemetry for symptomatic bradycardia She accidentally took an extra dose of Cardizem today before coming to the hospital. She does not feel as dizzy as before CT head and carotid Dopplers were unremarkable Telemetry showed good response when the patient ambulated. After discussion with painter maintenance -- Dr Cedillo, we will hold off on beta blockers and calcium channel blockers for now. She will follow up with painter maintenance Continue with Xarelto I have also given her a referral to see a neurologist as she has chronic lightheadedness Condition: Good - Instructions Referrals: Sylwia Jewell MD [Non Staff, Medical] - 2 Weeks Adrianna Willams MD [Primary Care Provider] - Disposition: HOME - Home Medications Comprehensive Discharge Medication List: Ambulatory Orders Metoprolol Succinate [Toprol XL -] 12.5 mg PO DAILY 11/15/14 Diltiazem Cd [Cardizem Cd -] 0 mg PO DAILY 07/21/16 Rivaroxaban [Xarelto -] 50 mg PO DAILY 07/21/16
[2016-09-22 10:43] VITALS: BP 141/78; PULSE 66; TEMP 98.4
--- NOTE | 2016-09-22 11:39 | PN ---
[id number]. History of Present Illness: 56-year-old female with a past medical history of hypertension and atrial fibrillation, and fibromyalgia Patient states that his morning she felt very lightheaded and presyncopal, after dropping her daughter from school She also felt that her balance was off When she got home at 10 AM she took her blood pressure and heart rate at home, and her blood pressure was 143/89, normal heart rate was 43 She checked her heart rate again and it was 49 She continues to feel very lightheaded and presyncopal, although she did not pass out She denies any chest pain or syncope, but admits to near syncope She also admits to nausea She states that yesterday she accidentally took an extra dose of Cardizem CD last night, after taking a dose in the morning Her symptoms started this morning She denies any recent intercurrent illnesses, or any other complaints at this time Remainder the review of systems negative - Current Medication List Current Medications: Active Medications Sodium Chloride (Normal Saline -) 1,000 mls @ 80 mls/hr IV [facility] Last Admin: 09/21/16 10:00 Dose: 80 mls/hr Influenza Virus Vaccine (Fluvirin) 45 mcg IM .ONCE ONE Stop: 09/22/16 12:01 - Objective Vital Signs: Vital Signs Temperature 98.4 F 09/22/16 10:00 Pulse Rate 66 09/22/16 10:00 Respiratory Rate 18 09/22/16 10:00 Blood Pressure 141/78 09/22/16 10:00 O2 Sat by Pulse Oximetry (%) 95 09/22/16 09:00 Constitutional: Yes: Calm Eyes: Yes: WNL HENT: Yes: WNL Neck: Yes: WNL Cardiovascular: Yes: S1, S2. No: JVD Respiratory: Yes: Regular ...Rectal Exam: Yes: Deferred Genitourinary: No: Anuria Breast(s): Yes: WNL Musculoskeletal: Yes: Muscle Weakness Extremities: Yes: Cool Edema: No Peripheral Pulses WNL: Yes Integumentary: Yes: WNL Psychiatric: Yes: WNL - ....Imaging Ultrasound: Image Reviewed (ECHO: normal LVEF; mild MR and TR) Problem List - Problems (1) Bradycardia Assessment/Plan: Off diltiazem; f/u HR and BP. ECHO: normal LVEF; mild MR and TR. Pt walked fairly rapidly several times in hallway over a 3 minute period.. HR increased from 55 to 90 bpm (suboptimal response). From a cardiac standpoint, pt may be followed as outpatient off any AV conduction blockers; continue rivaraoxaban 20 mg daily. F/u with Dr. Fred Ventura, EP, for interrogation. Code(s): R00.1 - BRADYCARDIA, UNSPECIFIED (2) Calcium channel wally overdose Code(s): T46.1X1A - POISONING BY CALCIUM-CHANNEL BLOCKERS, ACCIDENTAL, INIT Qualifiers: Encounter type: initial encounter Injury intent: accidental or unintentional Qualified Code(s): T46.1X1A - Poisoning by calcium-channel blockers, accidental (unintentional), initial encounter (3) Hypertension Code(s): I10 - ESSENTIAL (PRIMARY) HYPERTENSION Qualifiers: Hypertension type: essential hypertension Qualified Code(s): I10 - Essential (primary) hypertension (4) Atrial fibrillation Assessment/Plan: on rivaroxaban for anticoagulation. Diltiazem held presently. TFTs WNL 2016. Pt will be seen by Dr. Ventura, EP. Code(s): I48.91 - UNSPECIFIED ATRIAL FIBRILLATION Qualifiers: Atrial fibrillation type: paroxysmal Qualified Code(s): I48.0 - Paroxysmal atrial fibrillation
[2016-09-22] MEDS ORDERED: INFLUENZA VACCINE 45 MCG/0.5 ML (MDV 16-17) IM ONE (12:00)
== END 2016-09-22 13:30 | disposition home or self-care (01) ==
LOC: JER 10:55 → JERBED 15:16 → UNDOADMOB 15:23 → JERBED 15:23 → J4W 16:35
PROVIDERS: ADMIT Internal Medicine; ATTEND Internal Medicine
DX: T46.1X1A Poisoning by calcium-channel blockers, accidental (unintentional), initial encounter (principal); R00.1 Bradycardia, unspecified; Y92.098 Other place in other non-institutional residence as the place of occurrence of the external cause; I10 Essential (primary) hypertension; G25.81 Restless legs syndrome; M79.7 Fibromyalgia; F41.8 Other specified anxiety disorders; I48.0 Paroxysmal atrial fibrillation
CPT/HCPCS: 36415; 70450-TC; 71010-TC; 80053; 82550; 83735; 84439; 84443; 84484; 85027; 93005; 93010; 93306-TC; 93880-TC; 99284-25; G0378; Q2037

== ENCOUNTER 2017-02-16 18:14 | Observation (INO) | payer OTHER ==
[2017-02-16] MEDS ORDERED: dilTIAZem HCL 125 MG/25 ML - 25 ML VIAL ONE (18:48)
[2017-02-16] MEDS ORDERED: dilTIAZem HCL 30 MG TABLET (FP) ONE (18:54)
[2017-02-16] MEDS ORDERED: ASPIRIN 325 MG TABLET PO ONE (19:14)
[2017-02-16] MEDS ORDERED: SODIUM CHLORIDE 500 ML IV STA (19:14)
[2017-02-16] MEDS ORDERED: dilTIAZem HCL 50 MG/10 ML - 10 ML VIAL IVPUSH ONE (19:16)
[2017-02-16] MEDS ORDERED: dilTIAZem HCL 30 MG TABLET (FP) PO ONE (19:19)
[2017-02-16 19:28] LABS: BASOPHIL 0.8 % (0-2.0); EOSINOPHIL 0.8 % (0-4.5); MCH 27.3 pg (25.7-33.7); MCHC 32.1 g/dl (32.0-36.0); MEAN PLT VOLUME 9.1 fl (7.5-11.1); NEUTROPHILS 58.1 % (42.8-82.8); PLATELET COUNT 290 K/MM3 (134-434); RDW 14.4 % (11.6-15.6); WHITE BLOOD COUNT 10.5 K/mm3 (4.0-10.0)
[2017-02-16] MEDS ORDERED: ASPIRIN 325 MG ENTERIC COATED TABLET (FP) ONE (19:29)
[2017-02-16 19:42] LABS: INR 1.36 (0.82-1.09)
--- NOTE | 2017-02-16 20:15 | PDOC ---
History of Present Illness - General History Source: Patient Exam Limitations: No Limitations - History of Present Illness Initial Comments: The patient is a 56 yo F with a past medical history significant for AFIB on Xarelto s/p ablation who presents with palpitations. The patient states she had a short episode of palpitations, chest pressure and SOB last night. She describes the chest pressure as centrally located and nonradiating. She states she then proceeded to go to sleep. This morning the patient states she woke up asymptomatic but around 6 pm when she was eating she began to feel palpitations again. The patient denies chest pain and SOB upon evaluation. The patient denies fevers, chills, nausea, vomiting, diarrhea, and abdominal pain. Cardiology: Dr. Cedillo <Sheri Alexander - Last Filed: 02/16/17 23:16> <Dagmar Hardwick - Last Filed: 02/16/17 23:45> - General Chief Complaint: Palpitations Stated Complaint: PALPITATIONS Time Seen by Provider: 02/16/17 18:53 Past History <Sheri Alexander - Last Filed: 02/16/17 23:16> - Past Medical History Anemia: No Asthma: No Cancer: No Cardiac Disorders: Yes (murmer, atrial fibrillation) CVA: Yes (tia ?) COPD: No CHF: No Dementia: No Diabetes: No GI Disorders: Yes (DIVERTICULOSIS; POLYP STOMACH; REFLUX; H/H) Disorders: No HTN: Yes Hypercholesterolemia: No Liver Disease: No Suicide Attempt (Hx): No Seizures: No Thyroid Disease: No - Surgical History Abdominal Surgery: Yes Appendectomy: Yes Cardiac Surgery: No Cholecystectomy: Yes GI Surgery: Yes (INTETINAL RESECTION) Lung Surgery: No Neurologic Surgery: No Orthopedic Surgery: No - Immunization History Immunization Up to Date: Yes - Psycho/Social/Smoking Cessation Hx Anxiety: No Suicidal Ideation: No Smoking Status: No Smoking History: Never smoked Have you smoked in the past 12 months: No Number of Cigarettes Smoked Daily: 0 If you are a former smoker, when did you quit?: 1988 Information on smoking cessation initiated: No 'Breaking Loose' booklet given: 05/12/12 Hx Alcohol Use: No Drug/Substance Use Hx: No Substance Use Type: None Hx Substance Use Treatment: No <Dagmar Hardwick - Last Filed: 02/16/17 23:45> - Past Medical History Allergies/Adverse Reactions: Allergies Allergy/AdvReac Type Severity Reaction Status Date / Time No Known Allergies Allergy Verified 02/16/17 18:26 Home Medications: Ambulatory Orders Rivaroxaban [Xarelto -] 20 mg PO DAILY #0 09/22/16 Review of Systems - Review of Systems Able to Perform ROS?: Yes Comments:: GENERAL/CONSTITUTIONAL: No fever or chills. No weakness. HEAD, EYES, EARS, NOSE AND THROAT: No change in vision. No ear pain or discharge. No sore throat. CARDIOVASCULAR: +chest pain, SOB, palpitations RESPIRATORY: No cough, wheezing, or hemoptysis. GASTROINTESTINAL: No nausea, vomiting, diarrhea or constipation. GENITOURINARY: No dysuria, frequency, or change in urination. MUSCULOSKELETAL: No joint or muscle swelling or pain. No neck or back pain. SKIN: No rash NEUROLOGIC: No headache, vertigo, loss of consciousness, or change in strength/ sensation. ENDOCRINE: No increased thirst. No abnormal weight change. HEMATOLOGIC/LYMPHATIC: No anemia, easy bleeding, or history of blood clots. ALLERGIC/IMMUNOLOGIC: No hives or skin allergy. <OnelderrickSheri - Last Filed: 02/16/17 23:16> *Physical Exam - Vital Signs Last Vital Signs Temp Pulse Resp BP Pulse Ox 98 F 86 14 123/80 100 02/16/17 18:25 02/16/17 21:02 02/16/17 21:02 02/16/17 21:02 02/16/17 21:02 - Physical Exam Comments: GENERAL: Awake, alert, and fully oriented, in no acute distress HEAD: No signs of trauma EYES: PERRLA, EOMI, sclera anicteric, conjunctiva clear ENT: Auricles normal inspection, hearing grossly normal, nares patent, oropharynx clear without exudates. Moist mucosa NECK: Normal ROM, supple, no lymphadenopathy, JVD, or masses LUNGS: Breath sounds equal, clear to auscultation bilaterally. No wheezes, and no crackles HEART: Irregularly irregular. Tachycardic to 160, normal S1 and S2, no murmurs, rubs or gallops ABDOMEN: Soft, nontender, normoactive bowel sounds. No guarding, no rebound. No masses EXTREMITIES: Normal range of motion, no edema. No clubbing or cyanosis. No cords, erythema, or tenderness NEUROLOGICAL: Cranial nerves II through XII grossly intact. Normal speech, gait not assessed. SKIN: Warm, Dry, normal turgor, no rashes or lesions noted. <Sheri Alexander - Last Filed: 02/16/17 23:16> - Vital Signs Last Vital Signs Temp Pulse Resp BP Pulse Ox 98 F 125 H 18 131/106 100 02/16/17 18:25 02/16/17 19:03 02/16/17 19:03 02/16/17 19:03 02/16/17 19:03 <Omar Hardwickpavel - Last Filed: 02/16/17 23:45> Heart Score/ECG Review #2 AFIB at 161 bpm with rapid ventricular response. Septal infarct, age undetermined. #3 NSR @ 84. Normal axis. No ST elevations. Isolated T wave inversion in V3 <Sheri Alexander - Last Filed: 02/16/17 23:16> - History History: Moderately suspicious - Electrocardiogram EKG: Non specific repolarization disturbance - Age Age: 45-65 - Risk Factors Risk Factors Heart Score: Yes Positive family hx of cardiac disease Based on the list above the patient has:: 1-2 risk factors - Troponin Troponin: </= normal limit - Score Heart Score - Total: 4 #1 02/16/17 20:16 Afib with RVR rate 161, normal axis, no ESTEBAN <Omar Hardwickpavel - Last Filed: 02/16/17 23:45> ED Treatment Course - LABORATORY CBC & Chemistry Diagram: 02/16/17 19:18 02/16/17 21:34 - ADDITIONAL ORDERS Additional order review: Laboratory Results 02/16/17 02/16/17 02/16/17 19:18 19:18 19:18 INR PTT (Actin FS) 38.8 H Sodium Cancelled Potassium Cancelled Chloride Cancelled Carbon Dioxide Cancelled Anion Gap Cancelled BUN Cancelled Creatinine Cancelled Creat Clearance w eGFR Cancelled Random Glucose Cancelled Calcium Cancelled Magnesium Cancelled Total Bilirubin Cancelled AST Cancelled ALT Cancelled Alkaline Phosphatase Cancelled Troponin I Cancelled B-Natriuretic Peptide Cancelled Total Protein Cancelled Albumin Cancelled 02/16/17 19:18 INR 1.36 H PTT (Actin FS) Sodium Potassium Chloride Carbon Dioxide Anion Gap BUN Creatinine Creat Clearance w eGFR Random Glucose Calcium Magnesium Total Bilirubin AST ALT Alkaline Phosphatase Troponin I B-Natriuretic Peptide Total Protein Albumin 02/16/17 19:18 RBC 4.63 MCV 85.0 MCHC 32.1 RDW 14.4 D MPV 9.1 Neutrophils % 58.1 Lymphocytes % 34.9 Monocytes % 5.4 Eosinophils % 0.8 Basophils % 0.8 - RADIOLOGY Radiograph Interpretation: CXR no acute pathology. - Medications Given in the ED: ED Medications Discontinued Medications Generic Name Dose Route Start Last Admin Trade Name Freq PRN Reason Stop Dose Admin Aspirin 325 mg 02/16/17 19:14 02/16/17 19:29 Asa - PO 02/16/17 19:15 325 mg ONCE ONE Administration Diltiazem HCl 10 mg 02/16/17 19:16 02/16/17 18:30 Cardizem Injection - IVPUSH 02/16/17 19:17 10 mg ONCE ONE Administration Diltiazem HCl 30 mg 02/16/17 19:19 02/16/17 18:45 Cardizem - PO 02/16/17 19:20 30 mg ONCE ONE Administration Sodium Chloride 500 mls @ 500 mls/hr 02/16/17 19:14 02/16/17 19:29 Normal Saline - IV 02/16/17 20:13 500 mls/hr ASDIR STA Administration <Sheri Alexander - Last Filed: 02/16/17 23:16> - LABORATORY CBC & Chemistry Diagram: 02/16/17 19:18 02/16/17 21:34 - ADDITIONAL ORDERS Additional order review: Laboratory Results 02/16/17 02/16/17 02/16/17 19:18 19:18 19:18 INR PTT (Actin FS) 38.8 H Sodium Cancelled Potassium Cancelled Chloride Cancelled Carbon Dioxide Cancelled Anion Gap Cancelled BUN Cancelled Creatinine Cancelled Creat Clearance w eGFR Cancelled Random Glucose Cancelled Calcium Cancelled Magnesium Cancelled Total Bilirubin Cancelled AST Cancelled ALT Cancelled Alkaline Phosphatase Cancelled Troponin I Cancelled B-Natriuretic Peptide Cancelled Total Protein Cancelled Albumin Cancelled 02/16/17 19:18 INR 1.36 H PTT (Actin FS) Sodium Potassium Chloride Carbon Dioxide Anion Gap BUN Creatinine Creat Clearance w eGFR Random Glucose Calcium Magnesium Total Bilirubin AST ALT Alkaline Phosphatase Troponin I B-Natriuretic Peptide Total Protein Albumin 02/16/17 19:18 RBC 4.63 MCV 85.0 MCHC 32.1 RDW 14.4 D MPV 9.1 Neutrophils % 58.1 Lymphocytes % 34.9 Monocytes % 5.4 Eosinophils % 0.8 Basophils % 0.8 - RADIOLOGY Radiology Studies Ordered: Category Date Time Status CHEST X-RAY PORTABLE* [RAD] Stat Radiology 02/16/17 19:15 Completed - Medications Given in the ED: ED Medications Discontinued Medications Generic Name Dose Route Start Last Admin Trade Name Grey PRN Reason Stop Dose Admin Aspirin 325 mg 02/16/17 19:14 02/16/17 19:29 Asa - PO 02/16/17 19:15 325 mg ONCE ONE Administration Diltiazem HCl 10 mg 02/16/17 19:16 02/16/17 18:30 Cardizem Injection - IVPUSH 02/16/17 19:17 10 mg ONCE ONE Administration Diltiazem HCl 30 mg 02/16/17 19:19 02/16/17 18:45 Cardizem - PO 02/16/17 19:20 30 mg ONCE ONE Administration <Dagmar Hardwick - Last Filed: 02/16/17 23:45> Medical Decision Making - Medical Decision Making Paged Dr. Cedillo @ 23:17. Awaiting call back. <Sheri Alexander - Last Filed: 02/16/17 23:16> - Critical Care Time Total Critical Care Time (minutes): 40 Critical Care Statement: The care of this patient involved high complexity decision making to prevent further life threatening deterioration of the patient 's condition and/or to evalute & treat vital organ system(s) failure or risk of failure. - Medical Decision Making 02/16/17 20:11 56yo F hx afib s/p ablation on eliquis p/w palpitations and found to be in AF w RVR to 160s. BP 130/100. Pt given diltiazem 30mg IV with decrease in HR to 90s- 110s. Given 30mg PO dilt shortly afterwards with resolution of palpitations. Pt also reporting CP and SOB last night while lying in bed, but was able to sleep. This morning was asymptomatic up until she had palpitations. Given CP/SOB will check trop for ACS. Unclear why she is flipping into AFib, will check for underlying cause such as dehydration or infection. -labs -CXR -UA -pvc monitor -call Dr. Cedillo -call Dr Adrianna Willams -dispo 02/16/17 21:35 Pt converted to NSR, vitals stable. Repeat EKG non-ischemic. CMP and trop hemolyzed, reordered. CXR clear, UA negative 02/16/07 23:28 Labs including trop and CMP unremarkable. Pt still complaining of weakness and occasional CP. Spoke with Dr. Cedillo who informs me that she should be taking metoprolol daily but pt states she only takes xarelto. Per Dr. Cedillo 's request, a TSH was added to r/o thyroid disease as cause for AFib. Also called Dr. Willams and plan is to admit patient to obs. <Dagmar Hardwick - Last Filed: 02/16/17 23:45> *DC/Admit/Observation/Transfer - Attestations Scribe Attestion: Documentation prepared by Sheri Alexander, acting as director of medical staff services for Dagmar Hardwick MD, /DO. <Sheri Alexander - Last Filed: 02/16/17 23:16> - Discharge Dispostion Admit: Yes - Attestations Physician Attestion: 02/16/17 23:44 I, Dr. Dagmar Hardwick MD, attest that this document has been prepared under my direction and personally reviewed by me in its entirety. I further attest, that it accurately reflects all work, treatment, procedures and medical decision -making performed by me. <Dagmar Hardwick - Last Filed: 02/16/17 23:45> Diagnosis at time of Disposition: Atrial fibrillation with RVR, Paroxysmal atrial fibrillation - Discharge Dispostion Condition at time of disposition: Stable - Referrals Referrals: Adrianna Willams MD [Primary Care Provider] -
[2017-02-16 21:03] LABS: URINE APPEARANCE CLEAR; URINE BILIRUBIN NEGATIVE (NEGATIVE); URINE BLOOD NEGATIVE (NEGATIVE); URINE COLOR COLORLESS; URINE GLUCOSE (UA) NEGATIVE (NEGATIVE); URINE KETONE NEGATIVE (NEGATIVE); URINE LEUK ESTERASE NEGATIVE (NEGATIVE); URINE NITRITE NEGATIVE (NEGATIVE); URINE PROTEIN NEGATIVE (NEGATIVE); URINE UROBILINOGEN NEGATIVE mg/dL (0.2-1.0)
[2017-02-16 22:22] LABS: ALBUMIN 3.3 g/dl (3.4-5.0); ANION GAP 6 (8-16); CALCIUM 8.5 mg/dL (8.5-10.1); CO2 29 mmol/L (21-32); CREATININE 0.5 mg/dL (0.55-1.02); GLUCOSE,RANDOM 109 mg/dL (74-106); SGOT/AST 16 U/L (15-37)
[2017-02-16 22:26] LABS: ALK PHOS 142 U/L (45-117); BILIRUBIN,TOTAL 0.4 mg/dL (0.2-1.0); SGPT/ALT 20 U/L (12-78); TOT PROT 6.6 g/dl (6.4-8.2); TROPONIN I < 0.02 ng/ml (0.00-0.05)
[2017-02-17] MEDS ORDERED: ACETAMINOPHEN 325 MG TABLET (FP) ONE (03:36)
[2017-02-17 05:18] VITALS: BMI 24.9
--- NOTE | 2017-02-17 08:34 | HP ---
Admitting History and Physical - Primary Care Physician PCP: Adrianna Willams - Admission Chief Complaint: palpitations History of Present Illness: The patient is a 56 yo F with a past medical history significant for AFIB on Xarelto s/p ablation 12/31--at [facility] --who presents with palpitations. The patient stated she had a short episode of palpitations, chest pressure and SOB last night. She describes the chest pressure as centrally located and non radiating. She states she then proceeded to go to sleep. This morning the patient states she woke up asymptomatic but around 6 pm when she was eating she began to feel palpitations again. The patient denies chest pain and SOB upon evaluation. The patient denies fevers, chills, nausea, vomiting, diarrhea, and abdominal pain. pt found in rapid afib. pt given cardizem-- with rate coming down. pt also started on lopressor. Pt seen/ examined today chart reviewed pt feels better. denies cp/ sob/ abd pain now denies any fever/ chills. 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 (Restless legs syndrome) Cardiovascular: Yes: HTN, Murmur (H/O Rheumatoid fever in childhood), Other ( rheumatic fever) Gastrointestinal: Yes: Diverticulitis ...LMP: 06/12/14 Psych: Yes: Anxiety Rheumatology: Yes: Fibromyalgia - Past Surgical History Past Surgical History: Yes: Appendectomy, Cholecystectomy, Tonsillectomy - Smoking History Smoking history: Never smoked Have you smoked in the past 12 months: No Aproximately how many cigarettes per day: 0 If you are a former smoker, when did you quit?: 1988 - Alcohol/Substance Use Hx Alcohol Use: No History of Substance Use: reports: None - Social History ADL: Independent Occupation: unemployed History of Recent Travel: No Home Medications - Allergies Allergies/Adverse Reactions: Allergies Allergy/AdvReac Type Severity Reaction Status Date / Time No Known Allergies Allergy Verified 02/16/17 18:26 - Home Medications Home Medications: Ambulatory Orders Rivaroxaban [Xarelto -] 20 mg PO DAILY #0 09/22/16 Family Disease History - Family Disease History Family Disease History: Heart Disease: Mother ( [place]), [place]: Father (dying from prostate [place]) Review of Systems Unable to obtain ROS, reason: see [place] Physical Examination Vital Signs: Vital Signs Temperature 98.7 F 02/17/17 04:00 Pulse Rate 63 02/17/17 04:00 Respiratory Rate 18 02/17/17 04:00 Blood Pressure 115/61 02/17/17 04:00 O2 Sat by Pulse Oximetry (%) 97 02/17/17 04:00 Constitutional: Yes: No Distress, Calm, Anxious Eyes: Yes: WNL HENT: Yes: Atraumatic Neck: Yes: Supple, Trachea Midline Cardiovascular: Yes: Pulse Irregular Respiratory: Yes: CTA Bilaterally Gastrointestinal: Yes: Normal Bowel Sounds, Soft Edema: No Neurological: Yes: WNL Psychiatric: Yes: WNL Imaging - Results Chest X-ray: Report Reviewed Problem List - Problems (1) Atrial fibrillation with RVR Code(s): I48.91 - UNSPECIFIED ATRIAL FIBRILLATION (2) Chest pain Code(s): R07.9 - CHEST PAIN, UNSPECIFIED (3) Hx of rheumatic fever Code(s): Z86.79 - PERSONAL HISTORY OF OTHER DISEASES OF THE CIRCULATORY SYSTEM Assessment/Plan clinically better tsh is ok. discussed with pt Pt should be on lopressor at home-- started here monitor today cardiology to follow if remains stable- anticipate d/c later today or tomorrow after cardiology eval. will follow Discussed in detail with pt.
[2017-02-17] MEDS: METOPROLOL TARTRATE 25 MG TABLET (FP) PO SCH ×2 (09:17→21:27)
[2017-02-17] MEDS: RIVAROXABAN 20 MG TABLET PO SCH (09:17)
[2017-02-17 09:23] LABS: BASOPHIL 0.5 % (0-2.0); EOSINOPHIL 1.4 % (0-4.5); MCHC 32.9 g/dl (32.0-36.0); MEAN PLT VOLUME 8.2 fl (7.5-11.1); NEUTROPHILS 55.6 % (42.8-82.8); PLATELET COUNT 265 K/MM3 (134-434); RDW 14.4 % (11.6-15.6); WHITE BLOOD COUNT 7.9 K/mm3 (4.0-10.0)
[2017-02-17 09:31] LABS: ALBUMIN 3.3 g/dl (3.4-5.0); ALK PHOS 127 U/L (45-117); ANION GAP 6 (8-16); BILIRUBIN,TOTAL 0.9 mg/dL (0.2-1.0); CALCIUM 8.6 mg/dL (8.5-10.1); CO2 26 mmol/L (21-32); CPK 64 IU/L (26-192); CREATININE 0.6 mg/dL (0.55-1.02); GLUCOSE,RANDOM 83 mg/dL (74-106); SGOT/AST 13 U/L (15-37); SGPT/ALT 21 U/L (12-78); TOT PROT 6.7 g/dl (6.4-8.2); TROPONIN I < 0.02 ng/ml (0.00-0.05)
--- NOTE | 2017-02-17 10:09 | EKG ---
Test Reason : Blood Pressure : / mmHG Vent. Rate : 068 BPM Atrial Rate : 068 BPM P-R Int : 158 ms QRS Dur : 086 ms QT Int : 464 ms P-R-T Axes : 044 -24 026 degrees QTc Int : 493 ms NORMAL SINUS RHYTHM PROLONGED QT NONSPECIFIC T WAVE ABNORMALITY ABNORMAL ECG Confirmed by MARIELA BOWMAN MD ([id number]) on 02/17/2017 10:09:15 AM Referred By: TAMMY GUAN Confirmed By:MARIELA BOWMAN MD
--- NOTE | 2017-02-17 10:23 | EKG ---
Test Reason : Blood Pressure : / mmHG Vent. Rate : 084 BPM Atrial Rate : 084 BPM P-R Int : 160 ms QRS Dur : 082 ms QT Int : 392 ms P-R-T Axes : 043 -28 038 degrees QTc Int : 463 ms NORMAL SINUS RHYTHM POOR R WAVE PROGRESSION ABNORMAL ECG Confirmed by MARIELA BOWMAN MD ([id number]) on 02/17/2017 10:23:00 AM Referred By: Confirmed By:MARIELA BOWMAN MD
--- NOTE | 2017-02-17 10:38 | CON.CARD ---
Consult Consult Specialty:: cardiology - History of Present Illness Chief Complaint: palpitations; recurrence PAF (s/p ablation) History of Present Illness: The patient is a 56 yo woman (b. [place]) with a past medical history significant for AFIB on Xarelto s/p [facility]; Dr[facility] Tom Ventura), who presents with palpitations. The patient states she had a short episode of palpitations accompanied by a twisting feeling in the center of her chest and SOB last night. She states she then proceeded to go to sleep. This morning the patient states she woke up asymptomatic, but later, while shopping, she began to feel rapid and strong palpitations again. The patient denies chest pain and SOB upon evaluation. The patient denies fevers, chills, nausea, vomiting, diarrhea, and abdominal pain. Pt had been on metoprolol in the past, but had stopped it after the ablation therapy; she has been taking rivaroxaban 20 mg daily. Cardiology: Dr. 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) Cardio/Vascular: Yes: HTN, Murmur (H/O Rheumatoid fever in childhood), Other ( rheumatic fever) Gastrointestinal: Yes: Diverticulitis ...LMP: 06/12/14 Psych: Yes: Anxiety Rheumatology: Yes: Fibromyalgia - Past Surgical History Past Surgical History: Yes: Appendectomy, Cholecystectomy, Tonsillectomy - Alcohol/Substance Use Hx Alcohol Use: No History of Substance Use: reports: None - Smoking History Smoking history: Never smoked Have you smoked in the past 12 months: No Aproximately how many cigarettes per day: 0 If you are a former smoker, when did you quit?: 1988 - Social History ADL: Independent Occupation: unemployed History of Recent Travel: No Home Medications - Allergies Allergies/Adverse Reactions: Allergies Allergy/AdvReac Type Severity Reaction Status Date / Time No Known Allergies Allergy Verified 02/16/17 18:26 - Home Medications Home Medications: Ambulatory Orders Rivaroxaban [Xarelto -] 20 mg PO DAILY #0 09/22/16 Family Disease History - Family Disease History Family Disease History: Heart Disease: Mother ( [place]), CA: Father (dying from prostate CA) Review of Systems - Review of Systems Constitutional: reports: No Symptoms Eyes: reports: No Symptoms HENT: reports: No Symptoms Neck: reports: No Symptoms Cardiovascular: reports: Chest Pain, Palpitations, Shortness of Breath Respiratory: reports: SOB Gastrointestinal: reports: No Symptoms Genitourinary: reports: No Symptoms Breasts: reports: No Symptoms Reported Musculoskeletal: reports: No Symptoms Integumentary: reports: No Symptoms Neurological: reports: No Symptoms Endocrine: reports: No Symptoms Hematology/Lymphatic: reports: No Symptoms Psychiatric: reports: Anxiety - Risk Factors Known Risk Factors: Yes: Age, Physical Inactivity, Other (PAF) Vital Signs: Vital Signs Temperature 98.2 F 02/17/17 08:30 Pulse Rate 62 02/17/17 08:30 Respiratory Rate 14 02/17/17 08:30 Blood Pressure 106/64 02/17/17 08:30 O2 Sat by Pulse Oximetry (%) 97 02/17/17 04:00 Constitutional: Yes: Anxious Eyes: Yes: WNL HENT: Yes: WNL Neck: Yes: WNL Respiratory: Yes: WNL Gastrointestinal: Yes: WNL Renal/: No: Anuria Cardiovascular: Yes: WNL JVD: No Carotid Bruit: No PMI: Non-Displaced Heart Sounds: Yes: S1, S2 Musculoskeletal: Yes: WNL Extremities: Yes: WNL Edema: No Peripheral Pulses WNL: Yes Integumentary: Yes: WNL Neurological: Yes: WNL ...Motor Strength: WNL Psychiatric: Yes: WNL - Other Data Labs, Other Data: CBC, BMP 02/17/17 08:46 02/17/17 08:46 INR, PTT INR 1.36 (0.82-1.09) H 02/16/17 19:18 Troponin, BNP 02/17/17 02/17/17 00:18 08:46 Troponin I < 0.02 < 0.02 Troponin, BNP 02/17/17 02/17/17 00:18 08:46 Troponin I < 0.02 < 0.02 Prior Cardiac Procedures: Ablation Ejection Fraction %: LVEF > or = 40 % Imaging - Results EKG: Image Reviewed (Initial EKG in ER: AF with RVR. Subsequent EKG: NSR.) Problem List - Problems (1) Paroxysmal atrial fibrillation Assessment/Plan: Converted to NSR about 45 minutes after the episode began (and after being given diltiazem IV in the ER). Restarted metoprolol; to go home on metoprolol ER 25 mg daily. TSH WNL; electrolytes WNL. TNI < 0.02 x 2. She will f/u with myself and JENA Montanez as an outpatient. Code(s): I48.0 - PAROXYSMAL ATRIAL FIBRILLATION (2) S/P ablation of atrial fibrillation Assessment/Plan: As discussed today with Dr. Fred Ventura, EP, pt was ablated one month ago. A "breakthrough" episode of PAF, as in Devorah's case today, does not necessarily mean failure of the procedure; usually, pt can have recurrences for up to 3 months after ablation therapy before it is considered dysfunctional. Pt will restart metoprolol ER 25 mg daily. If she has no further events, she may be discharged home in the morning. She has a i[employer] event recorder implanted, and this will be interrogated as an outpatient. Code(s): Z98.890 - OTHER SPECIFIED POSTPROCEDURAL STATES Z86.79 - PERSONAL HISTORY OF OTHER DISEASES OF THE CIRCULATORY SYSTEM
--- NOTE | 2017-02-17 17:18 | CON.CARD ---
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) Cardio/Vascular: Yes: HTN, Murmur (H/O Rheumatoid fever in childhood), Other ( rheumatic fever) Gastrointestinal: Yes: Diverticulitis ...LMP: 06/12/14 Psych: Yes: Anxiety Rheumatology: Yes: Fibromyalgia - Past Surgical History Past Surgical History: Yes: Appendectomy, Cholecystectomy, Tonsillectomy - Alcohol/Substance Use Hx Alcohol Use: No History of Substance Use: reports: None - Smoking History Smoking history: Never smoked Have you smoked in the past 12 months: No Aproximately how many cigarettes per day: 0 If you are a former smoker, when did you quit?: 1988 - Social History ADL: Independent Occupation: unemployed History of Recent Travel: No Home Medications - Allergies Allergies/Adverse Reactions: Allergies Allergy/AdvReac Type Severity Reaction Status Date / Time No Known Allergies Allergy Verified 02/16/17 18:26 - Home Medications Home Medications: Ambulatory Orders Rivaroxaban [Xarelto -] 20 mg PO DAILY #0 09/22/16 Family Disease History - Family Disease History Family Disease History: Heart Disease: Mother ( [place]), CA: Father (dying from prostate CA) Vital Signs: Vital Signs Temperature 98.2 F 02/17/17 08:30 Pulse Rate 62 02/17/17 08:30 Respiratory Rate 14 02/17/17 08:30 Blood Pressure 106/64 02/17/17 08:30 O2 Sat by Pulse Oximetry (%) 96 02/17/17 11:29 - Other Data Labs, Other Data: CBC, BMP 02/17/17 08:46 02/17/17 08:46 INR, PTT INR 1.36 (0.82-1.09) H 02/16/17 19:18 Troponin, BNP 02/17/17 02/17/17 00:18 08:46 Troponin I < 0.02 < 0.02 Troponin, BNP 02/17/17 02/17/17 00:18 08:46 Troponin I < 0.02 < 0.02
[2017-02-18 06:30] VITALS: PULSE 78
--- NOTE | 2017-02-18 08:22 | DS ---
Physical Examination Vital Signs: Vital Signs Temperature 97.9 F 02/18/17 06:00 Pulse Rate 78 02/18/17 06:00 Respiratory Rate 16 02/18/17 06:00 Blood Pressure 128/70 02/18/17 06:00 O2 Sat by Pulse Oximetry (%) 96 02/17/17 22:29 Findings/Remarks: doing well. no complains cardiology consult noted/ appreciated Constitutional: Yes: Well Nourished, No Distress Eyes: Yes: Conjunctiva Clear HENT: Yes: WNL. No: Atraumatic Neck: Yes: Supple, Trachea Midline Cardiovascular: Yes: Regular Rate and Rhythm Respiratory: Yes: CTA Bilaterally Gastrointestinal: Yes: Normal Bowel Sounds, Soft Edema: No Neurological: Yes: Alert Psychiatric: Yes: Alert Labs: CBC, BMP 02/17/17 08:46 02/17/17 08:46 Discharge Summary Reason For Visit: AFIB W/RVR PAROXYSMAL AFIB Current Active Problems Paroxysmal atrial fibrillation (Acute) S/P ablation of atrial fibrillation (Acute) Hospital Course: History of Present Illness: The patient is a 56 yo F with a past medical history significant for AFIB on Xarelto s/p ablation 12/31--at [facility] --who presents with palpitations. The patient stated she had a short episode of palpitations, chest pressure and SOB last night. She describes the chest pressure as centrally located and non radiating. She states she then proceeded to go to sleep. This morning the patient states she woke up asymptomatic but around 6 pm when she was eating she began to feel palpitations again. The patient denies chest pain and SOB upon evaluation. The patient denies fevers, chills, nausea, vomiting, diarrhea, and abdominal pain. pt found in rapid afib. pt given cardizem-- with rate coming down. pt also started on lopressor. pt now back to sinus stable will d/c on toprol xl discussed with pt in detail. meds reconciled pt in agreement prescribed to pharmacy. f/u in office in 2 weeks as well as cardiology f/u as advised. Condition: Stable - Instructions Referrals: Adrianna Willams MD [Primary Care Provider] - Disposition: HOME - Home Medications Comprehensive Discharge Medication List: Ambulatory Orders Rivaroxaban [Xarelto -] 20 mg PO DAILY #0 09/22/16 Metoprolol Succinate [Toprol Xl -] 25 mg PO DAILY #30 tab.sr.24h MDD 1 02/18/17
--- NOTE | 2017-02-18 08:56 | PN ---
Progress Note, Physician - Current Medication List Current Medications: Active Medications Metoprolol Tartrate (Lopressor -) 25 mg PO BID [facility] Last Admin: 02/17/17 21:27 Dose: 25 mg Rivaroxaban (Xarelto -) 20 mg PO DAILY [facility] Last Admin: 02/17/17 09:17 Dose: 20 mg - Objective Vital Signs: Vital Signs Temperature 97.9 F 02/18/17 06:00 Pulse Rate 78 02/18/17 06:00 Respiratory Rate 16 02/18/17 06:00 Blood Pressure 128/70 02/18/17 06:00 O2 Sat by Pulse Oximetry (%) 96 02/17/17 22:29 Eyes: Yes: WNL, Conjunctiva Clear, EOM Intact HENT: Yes: WNL, Atraumatic, Normocephalic Neck: Yes: WNL, Supple, Trachea Midline Cardiovascular: Yes: WNL, Regular Rate and Rhythm Respiratory: Yes: WNL, Regular, CTA Bilaterally Gastrointestinal: Yes: WNL, Normal Bowel Sounds Genitourinary: Yes: WNL Musculoskeletal: Yes: WNL Extremities: Yes: WNL Edema: No Integumentary: Yes: WNL Neurological: Yes: WNL, Alert, Oriented ...Motor Strength: WNL Psychiatric: Yes: WNL Labs: CBC, BMP 02/17/17 08:46 02/17/17 08:46 INR, PTT INR 1.36 (0.82-1.09) H 02/16/17 19:18 Assessment/Plan (1) Paroxysmal atrial fibrillation Assessment/Plan: Converted to NSR about 45 minutes after the episode began (and after being given diltiazem IV in the ER). Restarted metoprolol; to go home on metoprolol ER 25 mg daily. TSH WNL; electrolytes WNL. TNI < 0.02 x 2. She will f/u with myself and JENA Montanez as an outpatient. Code(s): I48.0 - PAROXYSMAL ATRIAL FIBRILLATION (2) S/P ablation of atrial fibrillation Assessment/Plan: As discussed today with Dr. Fred Ventura, EP, pt was ablated one month ago. A "breakthrough" episode of PAF, as in Devorah's case today, does not necessarily mean failure of the procedure; usually, pt can have recurrences for up to 3 months after ablation therapy before it is considered dysfunctional. Pt will restart metoprolol ER 25 mg daily. If she has no further events, she may be discharged home in the morning. She has a [employer] event recorder implanted, and this will be interrogated as an outpatient. Code(s): Z98.890 - OTHER SPECIFIED POSTPROCEDURAL STATES Z86.79 - PERSONAL HISTORY OF OTHER DISEASES OF THE CIRCULATORY SYSTEM
[2017-02-18 08:59] LABS: CPK 49 IU/L (26-192); TROPONIN I < 0.02 ng/ml (0.00-0.05)
[2017-02-18] MEDS: RIVAROXABAN 20 MG TABLET PO SCH (09:10)
[2017-02-18] MEDS: METOPROLOL TARTRATE 25 MG TABLET (FP) PO SCH (09:10)
[2017-02-18 10:05] VITALS: BP 124/77; TEMP 97.6
[2017-02-18 12:13] LABS: CPK 58 IU/L (26-192); TROPONIN I < 0.02 ng/ml (0.00-0.05)
[2017-02-18 13:14] LABS: CHOLESTEROL 192 mg/dL (50-200); LDL CHOLESTEROL (ONLY SJRH) 121 mg/dL (5-100)
--- NOTE | 2017-02-22 14:48 | EKG ---
Test Reason : Blood Pressure : / mmHG Vent. Rate : 161 BPM Atrial Rate : 092 BPM P-R Int : 000 ms QRS Dur : 082 ms QT Int : 266 ms P-R-T Axes : 000 010 011 degrees QTc Int : 435 ms ATRIAL FIBRILLATION WITH RAPID VENTRICULAR RESPONSE SEPTAL INFARCT (CITED ON OR BEFORE 27-AUG-2015) ABNORMAL ECG WHEN COMPARED WITH ECG OF 20-SEP-2016 12:48, ATRIAL FIBRILLATION HAS REPLACED SINUS RHYTHM VENT. RATE HAS INCREASED BY 111 BPM QUESTIONABLE CHANGE IN INITIAL FORCES OF ANTEROSEPTAL LEADS ST NOW DEPRESSED IN INFERIOR LEADS ST NOW DEPRESSED IN LATERAL LEADS T WAVE INVERSION NO LONGER EVIDENT IN ANTERIOR LEADS Confirmed by TAMMY GUAN MD ([id number]) on 02/22/2017 2:47:53 PM Referred By: Confirmed By:TAMMY GUAN MD
== END 2017-02-18 14:39 | disposition home or self-care (01) ==
LOC: JER 18:14 → JERBED 23:45 → J4W 02-17 04:37
PROVIDERS: ADMIT Internal Medicine; ATTEND Internal Medicine
PROC: 3E033GC Introduction of Other Therapeutic Substance into Peripheral Vein, Percutaneous Approach (ICD-10-PCS; principal; 2017-02-16)
PROC: 3E0337Z Introduction of Electrolytic and Water Balance Substance into Peripheral Vein, Percutaneous Approach (ICD-10-PCS; 2017-02-16)
DX: I48.0 Paroxysmal atrial fibrillation (principal); R07.9 Chest pain, unspecified; I10 Essential (primary) hypertension; R01.1 Cardiac murmur, unspecified; Z86.73 Personal history of transient ischemic attack (TIA), and cerebral infarction without residual deficits; Z79.01 Long term (current) use of anticoagulants; M79.7 Fibromyalgia; G25.81 Restless legs syndrome; Z86.79 Personal history of other diseases of the circulatory system; Z98.890 Other specified postprocedural states
CPT/HCPCS: 36415; 71010-TC; 80053; 80061; 81003; 83721; 83880; 84443; 84484; 85025; 85610; 85730; 93005; 93010; 99285-25; G0378

== ENCOUNTER 2017-05-20 20:30 | Emergency (ER) | payer OTHER ==
[2017-05-20 20:55] VITALS: PULSE 85; TEMP 98.3; BMI 32.9
[2017-05-20] MEDS ORDERED: METOPROLOL SUCCINATE 25 MG TAB.SR.24H (FP) PO ONE (21:06)
--- NOTE | 2017-05-20 21:06 | PDOC ---
History of Present Illness <Shayy Feldman - Last Filed: 05/20/17 23:55> - General History Source: Patient, Family Exam Limitations: No Limitations - History of Present Illness Initial Comments: 05/20/17 21:17 The patient is a 57 year old female, with a significant past medical history of AFib(on Xarelto), heart murmur, hypertension, diverticulosis, and GERD, who presents to the emergency department with palpitations since earlier this evening. The patient reports she was at the movies with her family and after going to the bathroom she developed palpitations. She reports associated shortness of breath, but denies any diaphoresis or lower extremity edema. Patient reports she has had episodes like this in the past s/p cardiac ablation approximately 5 months ago. Patient admits she did not take her blood pressure meds, and when EMS arrived on scene they administered Metoprolol which resolved her palpitations. Patient reports her heart rate was at 140 bpm, prior to receiving her meds. She denies any fever, chills, cough, headache, or dizziness. She denies any abdominal pain, nausea, vomiting, diarrhea, constipation, or changes in urination. She denies any recent travel or sick contacts. Allergies: NKDA Past Surgical History: Cardiac Ablation (2017), Intestinal resection, Appendectomy, Cholecystectomy Social History: Non smoker. No ETOH or recreational drug use. PCP: Dr. Willams Obiee Obia Solution Architect: Dr. Cedillo <Rian Granados - Last Filed: 05/21/17 00:06> - General Chief Complaint: Palpitations Stated Complaint: Palpitations Time Seen by Provider: 05/20/17 20:38 Past History - Past Medical History Anemia: No Asthma: No Cancer: No Cardiac Disorders: Yes (murmer, atrial fibrillation) CVA: Yes (tia ?) COPD: No CHF: No Dementia: No Diabetes: No GI Disorders: Yes (DIVERTICULOSIS; POLYP STOMACH; REFLUX; H/H) Disorders: No HTN: Yes Hypercholesterolemia: No Liver Disease: No Seizures: No Thyroid Disease: No - Surgical History Abdominal Surgery: Yes Appendectomy: Yes Cardiac Surgery: No Cholecystectomy: Yes GI Surgery: Yes (INTETINAL RESECTION) Lung Surgery: No Neurologic Surgery: No Orthopedic Surgery: No - Immunization History Immunization Up to Date: Yes - Suicide/Smoking/Psychosocial Hx Smoking Status: No Smoking History: Never smoked Have you smoked in the past 12 months: No Number of Cigarettes Smoked Daily: 0 If you are a former smoker, when did you quit?: 1988 Information on smoking cessation initiated: No 'Breaking Loose' booklet given: 05/12/12 Hx Alcohol Use: No Drug/Substance Use Hx: No Substance Use Type: None Hx Substance Use Treatment: No <Shayy Feldman - Last Filed: 05/20/17 23:55> <Rian Granados - Last Filed: 05/21/17 00:06> - Past Medical History Allergies/Adverse Reactions: Allergies Allergy/AdvReac Type Severity Reaction Status Date / Time No Known Allergies Allergy Verified 02/16/17 18:26 Home Medications: Ambulatory Orders Rivaroxaban [Xarelto -] 20 mg PO DAILY #0 09/22/16 Metoprolol Succinate [Toprol Xl -] 25 mg PO DAILY #30 tab.sr.24h MDD 1 02/18/17 Review of Systems - Review of Systems Able to Perform ROS?: Yes Comments:: 05/20/17 21:17 GENERAL/CONSTITUTIONAL: No fever or chills. No weakness. HEAD, EYES, EARS, NOSE AND THROAT: No change in vision. No ear pain or discharge. No sore throat. CARDIOVASCULAR: Yes shortness of breath, palpitations. No chest pain. RESPIRATORY: No cough, wheezing, or hemoptysis. GASTROINTESTINAL: No nausea, vomiting, diarrhea or constipation. GENITOURINARY: No dysuria, frequency, or change in urination. MUSCULOSKELETAL: No joint or muscle swelling or pain. No neck or back pain. SKIN: No rash NEUROLOGIC: No headache, vertigo, loss of consciousness, or change in strength/ sensation. ENDOCRINE: No increased thirst. No abnormal weight change. HEMATOLOGIC/LYMPHATIC: No anemia, easy bleeding, or history of blood clots. ALLERGIC/IMMUNOLOGIC: No hives or skin allergy. <Rian Granados - Last Filed: 05/21/17 00:06> *Physical Exam - Vital Signs Last Vital Signs Temp Pulse Resp BP Pulse Ox 98.3 F 85 19 138/100 100 05/20/17 20:37 05/20/17 20:37 05/20/17 20:37 05/20/17 20:37 05/20/17 20:37 <Shayy Feldman - Last Filed: 05/20/17 23:55> - Vital Signs Last Vital Signs Temp Pulse Resp BP Pulse Ox 98.3 F 85 19 138/100 100 05/20/17 20:37 05/20/17 20:37 05/20/17 20:37 05/20/17 20:37 05/20/17 20:37 - Physical Exam Comments: 05/20/17 21:17 GENERAL: Awake, alert, and fully oriented, in no acute distress HEAD: No signs of trauma EYES: PERRLA, EOMI, sclera anicteric, conjunctiva clear ENT: Auricles normal inspection, hearing grossly normal, nares patent, oropharynx clear without exudates. Moist mucosa NECK: Normal ROM, supple, no lymphadenopathy, JVD, or masses LUNGS: Breath sounds equal, clear to auscultation bilaterally. No wheezes, and no crackles HEART: Irregularly irregular. Tachycardic. Normal S1 and S2, no rubs or gallops ABDOMEN: Soft, nontender, normoactive bowel sounds. No guarding, no rebound. No masses EXTREMITIES: Normal range of motion, no edema. No clubbing or cyanosis. No cords, erythema, or tenderness NEUROLOGICAL: Cranial nerves II through XII grossly intact. Normal speech, normal gait SKIN: Warm, Dry, normal turgor, no rashes or lesions noted. <Rian Granados - Last Filed: 05/21/17 00:06> ED Treatment Course - LABORATORY CBC & Chemistry Diagram: 05/20/17 22:00 05/20/17 22:00 <Shayy Feldman - Last Filed: 05/20/17 23:55> - LABORATORY CBC & Chemistry Diagram: 05/20/17 22:00 05/20/17 22:00 <Rian Granados - Last Filed: 05/21/17 00:06> Medical Decision Making - Medical Decision Making 05/20/17 23:55 Labs are normal; pt is feeling better and she will be discharged home and asked to follow with her PMD and her issuing operator. <Shayy Feldman - Last Filed: 05/20/17 23:55> - Medical Decision Making 05/21/17 00:06 First call placed to Dr. Willams at 00:00. Awaiting call back. Case discussed with Dr. Willams at 00:05. <Rian Granados - Last Filed: 05/21/17 00:06> *DC/Admit/Observation/Transfer - Discharge Dispostion Admit: No <Shayy Feldman - Last Filed: 05/20/17 23:55> - Attestations Scribe Attestion: 05/20/17 21:18 Documentation prepared by Rian Granados, acting as medical underwriter for Shayy Feldman MD. <Rian Granados - Last Filed: 05/21/17 00:06> Diagnosis at time of Disposition: Atrial fibrillation - Discharge Dispostion Disposition: HOME Condition at time of disposition: Stable - Referrals Referrals: Adrianna Willams MD [Primary Care Provider] - - Patient Instructions Printed Discharge Instructions: DI for Atrial Fibrillation
[2017-05-20] MEDS ORDERED: METOPROLOL SUCCINATE 50 MG TAB.SR.24H (FP) ONE (22:03)
[2017-05-20 22:21] LABS: BASOPHIL 1.2 % (0-2.0); EOSINOPHIL 0.7 % (0-4.5); MCHC 33.3 g/dl (32.0-36.0); MEAN CELL VOLUME 84.1 fl (80-96); MEAN PLT VOLUME 8.3 fl (7.5-11.1); NEUTROPHILS 64.2 % (42.8-82.8); PLATELET COUNT 279 K/MM3 (134-434); RDW 13.5 % (11.6-15.6); WHITE BLOOD COUNT 9.3 K/mm3 (4.0-10.0)
[2017-05-20 22:45] LABS: ALBUMIN 3.6 g/dl (3.4-5.0); ANION GAP 9 (8-16); BILIRUBIN,TOTAL 0.5 mg/dL (0.2-1.0); CALCIUM 8.1 mg/dL (8.5-10.1); CO2 24 mmol/L (21-32); CREATININE 0.6 mg/dL (0.55-1.02); GLUCOSE,RANDOM 103 mg/dL (74-106); SGOT/AST 13 U/L (15-37); SGPT/ALT 19 U/L (12-78); TOT PROT 6.8 g/dl (6.4-8.2)
[2017-05-20 22:48] LABS: ALK PHOS 140 U/L (45-117); CPK 95 IU/L (26-192); TROPONIN I < 0.02 ng/ml (0.00-0.05)
[2017-05-21 00:14] VITALS: BP 125/56
--- NOTE | 2017-05-24 13:52 | EKG ---
Test Reason : Blood Pressure : / mmHG Vent. Rate : 085 BPM Atrial Rate : 085 BPM P-R Int : 170 ms QRS Dur : 082 ms QT Int : 388 ms P-R-T Axes : 046 -30 032 degrees QTc Int : 461 ms NORMAL SINUS RHYTHM LEFT AXIS DEVIATION POSSIBLE ANTERIOR INFARCT , AGE UNDETERMINED NONSPECIFIC T WAVE ABNORMALITY ABNORMAL ECG WHEN COMPARED WITH ECG OF 17-FEB-2017 09:10, QT HAS SHORTENED QRS AXIS SHIFTED LEFT Confirmed by FAUZIA RAPP, AUBREE ([id number]) on 05/24/2017 1:51:49 PM Referred By: Confirmed By:AUBREE CAGE MD
== END 2017-05-21 00:29 | disposition home or self-care (01) ==
LOC: JER 20:30
DX: I48.91 Unspecified atrial fibrillation (principal); Z79.01 Long term (current) use of anticoagulants; I10 Essential (primary) hypertension; R01.1 Cardiac murmur, unspecified; Z87.19 Personal history of other diseases of the digestive system
CPT/HCPCS: 36415; 71010-TC; 80053; 82550; 84484; 85025; 93005; 93010; 99284-25

== ENCOUNTER 2018-01-31 23:02 | Emergency (ER) | payer OTHER ==
[2018-01-31 23:09] VITALS: BP 168/82; PULSE 72; TEMP 98.3; BMI 32.9
--- NOTE | 2018-01-31 23:31 | PDOC ---
Attending Attestation - [facility] HPI: 02/01/18 00:01 The patient is a 57 year old female with a significant past medical history of atrial fibrillation (on xarelto), hypertension and diverticulitis s/p bowel resection who presents to the emergency department for evaluation of rectal bleeding. The patient reports 3 day history of blood in her stool. She reports passing darker stool than baseline on the first day which subsequently turned into bright red stool the 2 days after. Pt reports an episode of blood from her rectum. She reports an associated symptom of dizziness that has since resolved. The patient reports a 2 week history of intermittent episodes of vaginal bleeding, occuring every 2-3 days with small amounts of blood. She denies pain with bowel movement or vaginal pain. Denies abnormal vaginal discharge. The patient denies chest pain, shortness of breath, headache, fever, chills, nausea, vomiting, diarrhea, and constipation. Denies hematuria and dysuria. Allergies: NKA Social History: No reported alcohol, cigarette, or drug use. Surgical History: Appendectomy, cholecystectomy, intestinal resection, PCP: Dr. Adrianna Willams - Physicial Exam PE: General Appearance: Yes: Appropriately Dressed. No: Apparent Distress, Intoxicated HEENT: positive: EOMI, FRANCIA, Normal ENT Inspection, Normal Voice, TMs Normal, Pharynx Normal. negative: Pale Conjunctivae, Photophobia, Scleral Icterus (R), Scleral Icterus (L) Neck: positive: Trachea midline, Normal Thyroid, Supple. negative: Tender, Rigid, Carotid bruit, Stridor, Lymphadenopathy (R), Lymphadenopathy (L), Thyromegaly Respiratory/Chest: positive: Lungs Clear, Normal Breath Sounds. negative: Chest Tender, Respiratory Distress, Accessory Muscle Use, Labored Respiration, RES, Crackles, Rales, Rhonchi, Stridor, Wheezing, Dullness Cardiovascular: positive: Regular Rhythm, Regular Rate, S1, S2. negative: Edema , JVD, Murmur, Bradycardia, Tachycardia Vascular Pulses: Dorsalis-Pedis (R): 2+, Doralis-Pedis (L): 2+ Gastrointestinal/Abdominal: positive: Normal Bowel Sounds, Flat, Soft. negative : Tender, Organomegaly, Pulsatile Mass, Increased Bowel Sounds, Decreased BS, Distended, Guarding, Rebound, Hernia, Hepatomegaly, Spleenomegaly Lymphatic: negative: Adenopathy, Tenderness Musculoskeletal: positive: Normal Inspection. negative: CVA Tenderness, Decreased Range of Motion Extremity: positive: Normal Capillary Refill, Normal Inspection, Normal Range of Motion, Pelvis Stable. negative: Tender, Pedal Edema, Swelling, Erythema Integumentary: positive: Normal Color, Dry, Warm. negative: Cyanotic, Erythema , Jaundice, Rash Neurologic: positive: ward service supervisor II-XII NML intact, Fully Oriented, Alert, Normal Mood/ Affect, Motor Strength 5/5. negative: EOM Palsy, Facial Droop, Sensory Deficit <Josué Arreaga - Last Filed: 02/01/18 05:00> - Resident Resident Name: Alfred Dias - ED Attending Attestation I have performed the following: I have examined & evaluated the patient, The case was reviewed & discussed with the resident, I agree w/resident's findings & plan, Exceptions are as noted - Medical Decision Making 02/01/18 19:47 Pt treated and released <Graham Grullon - Last Filed: 02/01/18 19:48> Attestations - Attestations Documentation prepared by Josué Arreaga, acting as medical oncology physician for Graham Grullon DO. <Josué Arreaga - Last Filed: 02/01/18 05:00>
--- NOTE | 2018-01-31 23:49 | PDOC ---
History of Present Illness - General Chief Complaint: Lightheaded Stated Complaint: DIZZINESS Time Seen by Provider: 01/31/18 23:18 History Source: Patient Exam Limitations: No Limitations - History of Present Illness Initial Comments: 01/31/18 23:44 Patient is a 57F with history of diverticulitis s/p bowel resection, afib s/p ablation and xarelto, s/p appendectomy and cholecystectomy here today complaining of rectal bleeding. She states that 3 days ago she started having dark stools and today she noticed bright red blood in the toilet bowl. She also complains of vaginal bleeding, with small amounts of blood for the past two weeks every 2-3 days. She states that she came in today because she had an episode of dizziness this morning where it fell like the world was moving around her. This has since resolved. She denies chest pain, endorses shortness of breath. Denies fevers, chills, nausea, and vomiting. Denies abdominal pain. Past History - Past Medical History Allergies/Adverse Reactions: Allergies Allergy/AdvReac Type Severity Reaction Status Date / Time No Known Allergies Allergy Verified 01/31/18 23:09 Home Medications: Ambulatory Orders Rivaroxaban [Xarelto -] 20 mg PO DAILY #0 09/22/16 Metoprolol Succinate [Toprol Xl -] 25 mg PO DAILY #30 tab.sr.24h MDD 1 02/18/17 Anemia: No Asthma: No Cancer: No Cardiac Disorders: Yes (murmer, atrial fibrillation, ABLATION) CVA: Yes (tia ?) COPD: No CHF: No Dementia: No Diabetes: No GI Disorders: Yes (DIVERTICULOSIS; POLYP STOMACH; REFLUX; H/H) Disorders: No HTN: Yes Hypercholesterolemia: No Liver Disease: No Seizures: No Thyroid Disease: No - Surgical History Abdominal Surgery: Yes Appendectomy: Yes Cardiac Surgery: No Cholecystectomy: Yes GI Surgery: Yes (INTESTINAL RESECTION) Lung Surgery: No Neurologic Surgery: No Orthopedic Surgery: No - Immunization History Immunization Up to Date: Yes - Suicide/Smoking/Psychosocial Hx Smoking Status: No Smoking History: Never smoked Have you smoked in the past 12 months: No Number of Cigarettes Smoked Daily: 0 If you are a former smoker, when did you quit?: 1988 'Breaking Loose' booklet given: 05/12/12 Hx Alcohol Use: No Drug/Substance Use Hx: No Substance Use Type: None Hx Substance Use Treatment: No Review of Systems - Review of Systems Comments:: 01/31/18 23:49 GENERAL/CONSTITUTIONAL: No fever or chills. No weakness. HEAD, EYES, EARS, NOSE AND THROAT: No change in vision. No ear pain or discharge. No sore throat. CARDIOVASCULAR: No chest pain or shortness of breath RESPIRATORY: No cough, wheezing, or hemoptysis. GASTROINTESTINAL: No nausea, vomiting, diarrhea or constipation. GENITOURINARY: No dysuria, frequency, or change in urination. MUSCULOSKELETAL: No joint or muscle swelling or pain. No neck or back pain. SKIN: No rash NEUROLOGIC: No headache, vertigo, loss of consciousness, or change in strength/ sensation. ENDOCRINE: No increased thirst. No abnormal weight change HEMATOLOGIC/LYMPHATIC: No anemia, +easy bleeding ALLERGIC/IMMUNOLOGIC: No hives or skin allergy. *Physical Exam - Vital Signs Last Vital Signs Temp Pulse Resp BP Pulse Ox 98.3 F 72 18 168/82 100 01/31/18 23:03 01/31/18 23:03 01/31/18 23:03 01/31/18 23:03 01/31/18 23:03 - Physical Exam Comments: 01/31/18 23:49 GENERAL: Awake, alert, and fully oriented, in no acute distress HEAD: No signs of trauma, normocephalic, atraumatic EYES: PERRLA, EOMI, sclera anicteric, conjunctiva clear ENT: Auricles normal inspection, hearing grossly normal, nares patent, oropharynx clear without exudates. Moist mucosa NECK: Normal ROM, supple, no lymphadenopathy, JVD, or masses LUNGS: No distress, speaks full sentences, clear to auscultation bilaterally HEART: Regular rate and rhythm, normal S1 and S2, no murmurs, rubs or gallops, peripheral pulses normal and equal bilaterally. ABDOMEN: Soft, nontender, normoactive bowel sounds. No guarding, no rebound. No masses EXTREMITIES: Normal inspection, Normal range of motion, no edema. No clubbing or cyanosis. NEUROLOGICAL: Cranial nerves II through XII grossly intact. Normal speech, normal gait, no focal sensorimotor deficits SKIN: Warm, Dry, normal turgor, no rashes or lesions noted. ED Treatment Course - LABORATORY CBC & Chemistry Diagram: 02/01/18 03:11 02/01/18 00:40 Medical Decision Making - Medical Decision Making 01/31/18 23:50 Patient is 57F with history of diverticulitis s/p bowel resection, afib on xarelto, s/p appy and raúl here today with painless rectal bleeding. Vital signs normal and stable. DDx is weighted towards diverticular bleed, angiodysplasia. Do not believe that vaginal bleeding is an emergent process, patient has outpatient workup already scheduled. Will evaluate with abdominal labs, ekg, troponin, type and screen, pt/inr. 02/01/18 00:37 EKG shows normal sinus rhythm with rate of 68. No st elevations/depressions. No significant t wave abnormalities. Normal axis. Normal intervals. 02/01/18 03:35 Stool for occult blood positive, small amount of bright red blood on rectal exam with several small hemorrhoids. Initial CBC normal with HGB of 13.4 CMP, lipase and UA unremarkable. CTA shows no sign of diverticular bleed. Repeat CBC normal. Patient given return precautions and instructed to follow up with PCP and GI. Will discharge home. *DC/Admit/Observation/Transfer Diagnosis at time of Disposition: Rectal bleed - Discharge Dispostion Disposition: HOME Condition at time of disposition: Good Decision to Admit order: No - Referrals Referrals: Adrianna Willams MD [Primary Care Provider] - Bobby Nuñez MD [Staff Physician] - - Patient Instructions Printed Discharge Instructions: DI for Rectal Bleeding Additional Instructions: Please return if you have any new, worsening or concerning symptoms. Please follow up with your primary care physician and a GI specialist regarding your rectal bleeding. A referral for a GI doctor has been provided in your paperwork. Please follow up with your OBGYN regarding your vaginal bleeding. - Post Discharge Activity
[2018-02-01 00:24] LABS: BASO % 0.5 % (0-2.0); EOS % 1.1 % (0-4.5); HEMATOCRIT 41.1 % (32.4-45.2); HEMOGLOBIN 13.4 GM/dL (10.7-15.3); LYMPH % 34.6 % (8-40); MCH 28.7 pg (25.7-33.7); MCHC 32.6 g/dl (32.0-36.0); MEAN CELL VOLUME 87.9 fl (80-96); MEAN PLT VOLUME 8.6 fl (7.5-11.1); MONO % 6.4 % (3.8-10.2); NEUT % 57.4 % (42.8-82.8); PLATELET COUNT 273 K/MM3 (134-434); RBC 4.67 M/mm3 (3.60-5.2); RDW 13.8 % (11.6-15.6); WHITE BLOOD COUNT 8.6 K/mm3 (4.0-10.0)
[2018-02-01 00:29] LABS: URINE APPEARANCE CLEAR; URINE BILIRUBIN NEGATIVE (<2.0 mg/dL); URINE COLOR COLORLESS; URINE GLUCOSE (UA) NEGATIVE (NEGATIVE); URINE KETONE NEGATIVE (NEGATIVE); URINE LEUK ESTERASE NEGATIVE (NEGATIVE); URINE NITRITE NEGATIVE (NEGATIVE); URINE PROTEIN NEGATIVE (NEGATIVE); URINE UROBILINOGEN NEGATIVE mg/dL (0.2-1.0)
[2018-02-01 01:09] LABS: INR 1.15 (0.82-1.09)
[2018-02-01 01:20] LABS: ALBUMIN 3.6 g/dl (3.4-5.0); ANION GAP 7 (8-16); BILIRUBIN,TOTAL 0.5 mg/dL (0.2-1.0); BLOOD UREA NITROGEN 14 mg/dL (7-18); CALCIUM 8.4 mg/dL (8.5-10.1); CHLORIDE 108 mmol/L (98-107); CO2 27 mmol/L (21-32); CREATININE 0.7 mg/dL (0.55-1.02); GLUCOSE,RANDOM 93 mg/dL (74-106); LIPASE 113 U/L (73-393); POTASSIUM 4.3 mmol/L (3.5-5.1); SGOT/AST 13 U/L (15-37); SGPT/ALT 22 U/L (12-78); SODIUM 142 mmol/L (136-145)
[2018-02-01 01:23] LABS: ALK PHOS 136 U/L (45-117)
[2018-02-01 03:24] LABS: HEMATOCRIT 39.1 % (32.4-45.2); MCH 28.6 pg (25.7-33.7); MCHC 33.1 g/dl (32.0-36.0); MEAN CELL VOLUME 86.5 fl (80-96); PLATELET COUNT 261 K/MM3 (134-434); RBC 4.52 M/mm3 (3.60-5.2); RDW 13.6 % (11.6-15.6); WHITE BLOOD COUNT 7.5 K/mm3 (4.0-10.0)
--- NOTE | 2018-02-01 10:04 | PDOC ---
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 Discussed findings with the radiologist who suggests outpatient MRA. Informed the patient of the finding. She will come back to the ER to get a copy of the report. She does have an appointment with Dr. Adrianna Willams next week. Instructed her to bring a copy of the report and provided a referral to Dr. Chance. The patient does verify she understands the severity of the finding and need for follow up and monitoring.
--- NOTE | 2018-02-01 14:22 | EKG ---
Test Reason : Blood Pressure : / mmHG Vent. Rate : 068 BPM Atrial Rate : 068 BPM P-R Int : 176 ms QRS Dur : 086 ms QT Int : 422 ms P-R-T Axes : 048 -09 017 degrees QTc Int : 448 ms NORMAL SINUS RHYTHM NORMAL ECG WHEN COMPARED WITH ECG OF 20-MAY-2017 20:59, NO SIGNIFICANT CHANGE WAS FOUND Confirmed by MESHA DRAKE MD ([id number]) on 02/01/2018 2:21:52 PM Referred By: Confirmed By:MESHA DRAKE MD
== END 2018-02-01 04:20 | disposition home or self-care (01) ==
LOC: JER 23:02
DX: K62.5 Hemorrhage of anus and rectum (principal); I48.91 Unspecified atrial fibrillation; Z79.01 Long term (current) use of anticoagulants; I10 Essential (primary) hypertension; Z86.73 Personal history of transient ischemic attack (TIA), and cerebral infarction without residual deficits; Z87.19 Personal history of other diseases of the digestive system
CPT/HCPCS: 36415; 74174-TC; 80053; 81003; 82272; 82550; 83690; 84484; 85025; 85027; 85610; 86850; 86900; 86901; 93005; 93010; 99282-25

== ENCOUNTER 2018-05-12 22:30 | Emergency (ER) | payer OTHER ==
[2018-05-12 23:01] VITALS: BP 135/69; PULSE 73; TEMP 98.5; BMI 33.5
--- NOTE | 2018-05-12 23:04 | PDOC ---
History of Present Illness - General Chief Complaint: Nausea Stated Complaint: NAUSEA/WEAKNESS/DIZZINESS Time Seen by Provider: 05/12/18 22:50 History Source: Patient Exam Limitations: No Limitations - History of Present Illness Initial Comments: 05/12/18 23:18 This is a 58 year old female with a history of atrial fibrillation on xarelto( s /p ablation), GERD, who present with nausea, vomiting, dizziness, headache, palpations, and elevated blood pressure, taken at home of 160/110, while she was sitting up in bed watching TV. She denies fever, chills, cough, diarrhea, chest pain or shortness of breath, leg swelling. She called ambulance [facility] after [facility] Primary Dr. Adrianna Mariscal Cell Lead: Dr. Cedillo PMH:HTN, hypotension, bradycardia, atrial fibrillation s/p ablation, diverticulosis, GERD, Surgical history: colon resection, appendectomy, cholecystectomy Social history: denies tobacco, alcohol Past History - Past Medical History Allergies/Adverse Reactions: Allergies Allergy/AdvReac Type Severity Reaction Status Date / Time No Known Allergies Allergy Verified 01/31/18 23:09 Home Medications: Ambulatory Orders Rivaroxaban [Xarelto -] 20 mg PO DAILY #0 09/22/16 Metoprolol Succinate [Toprol Xl -] 25 mg PO DAILY #30 tab.sr.24h MDD 1 02/18/17 Anemia: No Asthma: No Cancer: No Cardiac Disorders: Yes (murmer, atrial fibrillation, ABLATION) CVA: Yes (tia ?) COPD: No CHF: No Dementia: No Diabetes: No GI Disorders: Yes (DIVERTICULOSIS; POLYP STOMACH; REFLUX; H/H) Disorders: No HTN: Yes Hypercholesterolemia: No Liver Disease: No Seizures: No Thyroid Disease: No - Surgical History Abdominal Surgery: Yes Appendectomy: Yes Cardiac Surgery: No Cholecystectomy: Yes GI Surgery: Yes (INTESTINAL RESECTION) Lung Surgery: No Neurologic Surgery: No Orthopedic Surgery: No - Immunization History Immunization Up to Date: Yes - Suicide/Smoking/Psychosocial Hx Smoking Status: No Smoking History: Never smoked Have you smoked in the past 12 months: No Number of Cigarettes Smoked Daily: 0 If you are a former smoker, when did you quit?: 1988 Information on smoking cessation initiated: No 'Breaking Loose' booklet given: 05/12/12 Hx Alcohol Use: No Drug/Substance Use Hx: No Substance Use Type: None Hx Substance Use Treatment: No *Physical Exam - Vital Signs Last Vital Signs Temp Pulse Resp BP Pulse Ox 98.5 F 73 18 135/69 98 05/12/18 22:30 05/12/18 22:30 05/12/18 22:30 05/12/18 22:30 05/12/18 22:30 ED Treatment Course - LABORATORY CBC & Chemistry Diagram: 05/12/18 23:56 05/12/18 23:56 - RADIOLOGY Radiology Studies Ordered: Category Date Time Status CXRPORT [CHEST X-RAY PORTABLE*] [RAD] Stat Radiology 05/12/18 23:03 Ordered Medical Decision Making - Medical Decision Making 05/13/18 01:06 This is a 58 year old female with a history of atrial fibrillation on xarelto, s /p ablation who presents with dizziness, palpitations, n, 1 episode of vomiting , after sitting up in bed. BP taken at home 160/110. Upon arrival patient bp 135 /69 ; HR 70s and nausea has resolved. #palpitations after nausea/vomiting; most likely from increased intra abdominal pressure -cbc, cmp wnl -negative troponin -zofran given -ecg NSR; no st t wave changes; will dc home ; f/u with primary and pharmaceutical officer 05/13/18 01:11 *DC/Admit/Observation/Transfer Diagnosis at time of Disposition: Palpitations, Dizziness - Discharge Dispostion Disposition: HOME Condition at time of disposition: Improved Decision to Admit order: No - Referrals Referrals: Adrianna Willams MD [Primary Care Provider] - - Patient Instructions - Post Discharge Activity
[2018-05-12] MEDS ORDERED: ONDANSETRON 4 MG TABLET PO ONE (23:15)
--- NOTE | 2018-05-12 23:46 | PDOC ---
Attending Attestation - HPI HPI: 05/12/18 23:49 The patient is a 58-year-old female with past medical history significant for Afib on Xarelto s/p ablation presents to the emergency department with dizziness and a headache. The patient reports she was sitting when an acute onset of dizziness presents associated with a mild headache. The patient reports following the presentation she checked BP, which was noted to be 160/ 110. The patient reports associated concern of nausea and a single episode of NBNB emesis. Denies chest pain, shortness of breath, sweating, arm pain, leg swelling or pain. Allergies: NKA PCP: Dr. Adrianna Mariscal - Physicial Exam PE: 05/13/18 00:06 GENERAL: Awake, alert, and fully oriented, in no acute distress HEAD: No signs of trauma EYES: PERRLA, EOMI, sclera anicteric, conjunctiva clear ENT: Auricles normal inspection, hearing grossly normal, nares patent, oropharynx clear without exudates. Moist mucosa NECK: Normal ROM, supple, no lymphadenopathy, JVD, or masses LUNGS: Breath sounds equal, clear to auscultation bilaterally. No wheezes, and no crackles HEART: Regular rate and rhythm, normal S1 and S2, no murmurs, rubs or gallops ABDOMEN: Soft, nontender, No guarding, no rebound. No masses EXTREMITIES: Normal range of motion, no edema. No cords, erythema, or tenderness NEUROLOGICAL: Cranial nerves II through XII grossly intact. Normal speech. SKIN: Warm, Dry, normal turgor, no rashes or lesions noted. - Medical Decision Making 05/12/18 23:49 Documentation prepared by Yris Villanueva, acting as medical reimbursement specialist for Shayy Feldman MD. <Yris Villanueva - Last Filed: 05/13/18 00:05> - Resident Resident Name: Thea Dupont - ED Attending Attestation I have performed the following: I have examined & evaluated the patient, The case was reviewed & discussed with the resident, I agree w/resident's findings & plan - Medical Decision Making 05/13/18 01:44 Pt is feeling better in the ER; her labs are normal and her EKG is normal, and her vitals are normal. She was reassured and asked to follow with her PMD. <Feldman,Shayy - Last Filed: 05/13/18 01:46>
[2018-05-13 00:11] LABS: BASO % 1.1 % (0-2.0); EOS % 1.2 % (0-4.5); HEMATOCRIT 38.7 % (32.4-45.2); HEMOGLOBIN 12.9 GM/dL (10.7-15.3); MCH 28.8 pg (25.7-33.7); MCHC 33.2 g/dl (32.0-36.0); MEAN CELL VOLUME 86.6 fl (80-96); MEAN PLT VOLUME 8.2 fl (7.5-11.1); NEUT % 65.7 % (42.8-82.8); PLATELET COUNT 272 K/MM3 (134-434); RBC 4.47 M/mm3 (3.60-5.2); RDW 13.4 % (11.6-15.6); WHITE BLOOD COUNT 7.8 K/mm3 (4.0-10.0)
[2018-05-13 00:35] LABS: INR 2.33 (0.83-1.09); PROTHROMBIN TIME (PATIENT) 27.7 SEC (9.7-13.0)
[2018-05-13] MEDS ORDERED: ONDANSETRON *ODT* 4 MG TABLET ONE (00:40)
[2018-05-13 00:50] LABS: ALBUMIN 3.2 g/dl (3.4-5.0); ALK PHOS 135 U/L (45-117); ANION GAP 8 MMOL/L (8-16); BILIRUBIN,TOTAL 0.4 mg/dL (0.2-1); BLOOD UREA NITROGEN 14 mg/dL (7-18); CALCIUM 7.8 mg/dL (8.5-10.1); CHLORIDE 112 mmol/L (98-107); CO2 24 mmol/L (21-32); CREATININE 0.9 mg/dL (0.55-1.3); GLUCOSE,RANDOM 116 mg/dL (74-106); MAGNESIUM 2.3 mg/dL (1.8-2.4); PHOSPHOROUS 2.8 mg/dL (2.5-4.9); POTASSIUM 4.1 mmol/L (3.5-5.1); SGOT/AST 17 U/L (15-37); SGPT/ALT 18 U/L (13-61); SODIUM 144 mmol/L (136-145); TOT PROT 6.4 g/dl (6.4-8.2)
--- NOTE | 2018-05-13 13:57 | EKG ---
Test Reason : Blood Pressure : / mmHG Vent. Rate : 064 BPM Atrial Rate : 064 BPM P-R Int : 170 ms QRS Dur : 086 ms QT Int : 450 ms P-R-T Axes : 049 -12 -09 degrees QTc Int : 464 ms NORMAL SINUS RHYTHM ANTERIOR INFARCT , AGE UNDETERMINED ABNORMAL ECG WHEN COMPARED WITH ECG OF 01-FEB-2018 00:20, T WAVE INVERSION MORE EVIDENT IN ANTERIOR LEADS Confirmed by MD Brigido, Murray ([id number]) on 05/13/2018 1:56:49 PM Referred By: Confirmed By:Murray Fofana MD
== END 2018-05-13 01:55 | disposition home or self-care (01) ==
LOC: JER 22:30
DX: I10 Essential (primary) hypertension (principal); R00.2 Palpitations; I48.91 Unspecified atrial fibrillation; Z79.01 Long term (current) use of anticoagulants
CPT/HCPCS: 36415; 71045-TC-FY; 80053; 82550; 83735; 84100; 84484; 85025; 85610; 93005; 93010; 99282-25

== ENCOUNTER 2018-07-13 18:20 | Emergency (ER) | payer OTHER ==
[2018-07-13 18:24] VITALS: TEMP 98.4; BMI 32.9
--- NOTE | 2018-07-13 19:32 | PDOC ---
History of Present Illness - General Chief Complaint: Blood Pressure Problem Stated Complaint: BLOOD PRESSURE PROBLEM History Source: Patient Exam Limitations: No Limitations - History of Present Illness Initial Comments: 07/13/18 19:20 Pt. is a 58 y.o. F w/ PMHx. of Nas Hickman (s/p ablation on Xarelto) and GERD presents to the ED with SOB, neck throbbing, ringing in the ears, dizziness and headache that has been presenting intermittently. Pt. states that she measures her BP at home once she gets these symptoms and it is usually high. Pt. measured her BP yesterday during such and episode and it was found to be in the 150s/100, then again today when the symptoms returned. Pt. states that these symptoms have gotten worse and is frustrated at not being on antihypertensives. Of note Pt. had a laser ablating of a superficial vein on her right leg last week. Pt. states she frequently has to warm her hands to improve blood flow, her hands turn almost completely white and it is painful. Pt. states that these episodes happen a random times and is not dependant on the weather. Pt. endorses dsypnea on exertion, dizziness, shortness of breath, and headache at this time. Pt. endorses numbness in the hands but denies numbness/tingling in the feet. Pt. states her appetite is normal and denies any changes in bowel or urinary habits. Timing/Duration: intermittent Past History - Travel Traveled outside of the country in the last 30 days: No Close contact w/someone who was outside of country & ill: No - Past Medical History Allergies/Adverse Reactions: Allergies Allergy/AdvReac Type Severity Reaction Status Date / Time No Known Allergies Allergy Verified 01/31/18 23:09 Home Medications: Ambulatory Orders Rivaroxaban [Xarelto -] 20 mg PO DAILY #0 09/22/16 Metoprolol Succinate [Toprol Xl -] 25 mg PO DAILY #30 tab.sr.24h MDD 1 02/18/17 Ranitidine [Zantac -] 150 mg PO BID 07/13/18 Valsartan [Diovan] 40 mg PO DAILY #30 tablet 07/13/18 Anemia: No Asthma: No Cancer: No Cardiac Disorders: Yes (murmer, atrial fibrillation, ABLATION) CVA: Yes (tia ?) COPD: No CHF: No Dementia: No Diabetes: No GI Disorders: Yes (DIVERTICULOSIS; POLYP STOMACH; REFLUX; H/H) Disorders: No HTN: Yes Hypercholesterolemia: No Liver Disease: No Seizures: No Thyroid Disease: No - Surgical History Abdominal Surgery: Yes Appendectomy: Yes Cardiac Surgery: No Cholecystectomy: Yes GI Surgery: Yes (INTESTINAL RESECTION) Lung Surgery: No Neurologic Surgery: No Orthopedic Surgery: No - Immunization History Immunization Up to Date: Yes - Suicide/Smoking/Psychosocial Hx Smoking Status: No Smoking History: Never smoked Have you smoked in the past 12 months: No Number of Cigarettes Smoked Daily: 0 If you are a former smoker, when did you quit?: 1988 'Breaking Loose' booklet given: 05/12/12 Hx Alcohol Use: No Drug/Substance Use Hx: No Substance Use Type: None Hx Substance Use Treatment: No Review of Systems - Review of Systems Able to Perform ROS?: Yes Is the patient limited Hungarian proficient: No Constitutional: No: Chills, Fever, Loss of Appetite, Malaise, Night Sweats, Weakness, Weight Stable HEENTM: Yes: Tinnitus. No: Eye Pain, Blurred Vision, Recent change in vision, Double Vision, Throat Swelling (Neck throbbing ) Respiratory: Yes: Shortness of Breath, SOB with Exertion. No: Cough, Wheezing, Productive cough Cardiac (ROS): Yes: Lightheadedness, Chest Tightness. No: Chest Pain, Palpitations ABD/GI: No: Symptoms Reported, Constipated, Diarrhea, Difficulty Swallowing, Nausea, Poor Appetite, Vomiting, Indigestion : No: Symptoms Reported, Dysuria, Discharge, Frequency, Flank Pain, Hematuria , Pain, Urgency Musculoskeletal: Yes: Muscle Pain Integumentary: Yes: Symptoms Reported, See HPI, Pallor Neurological: Yes: Symptoms reported, See HPI, Headache, Numbness, Dizziness *Physical Exam - Vital Signs Last Vital Signs Temp Pulse Resp BP Pulse Ox 98.4 F 76 18 181/71 H 100 07/13/18 18:23 07/13/18 18:23 07/13/18 18:23 07/13/18 18:23 07/13/18 18:23 - Physical Exam General Appearance: Yes: Nourished, Appropriately Dressed, Apparent Distress HEENT: positive: Normal ENT Inspection, Normal Voice, Symmetrical, Pharynx Normal, Hearing Grossly Normal. negative: Pharyngeal Erythema Neck: positive: Trachea midline, Supple. negative: Tender, Rigid Respiratory/Chest: positive: Lungs Clear, Normal Breath Sounds. negative: Respiratory Distress, Accessory Muscle Use, Rapid RR, Crackles, Wheezing Cardiovascular: positive: Regular Rhythm, Regular Rate, S1, S2, JVD (mild JVD). negative: Murmur Vascular Pulses: Dorsalis-Pedis (R): 2+, Doralis-Pedis (L): 2+ Gastrointestinal/Abdominal: positive: Soft. negative: Tender Rectal Exam: positive: deferred Musculoskeletal: positive: Normal Inspection. negative: CVA Tenderness Extremity: positive: Normal Range of Motion, Delayed Capillary Refill, Swelling. negative: Normal Capillary Refill (3 second capillary refill ), Tender, Pedal Edema, Calf Tenderness, Erythema Integumentary: positive: Dry, Warm, Swelling. negative: Cyanotic, Erythema, Jaundice Neurologic: positive: Fully Oriented, Alert, Normal Mood/Affect, Normal Response , Respond to painful stimul, Responsive, Numbness Moderate Sedation - Procedure Monitoring Vital Signs: Procedure Monitoring Vital Signs Temperature 98.4 F 07/13/18 18:23 Pulse Rate 76 07/13/18 18:23 Respiratory Rate 18 07/13/18 18:23 Blood Pressure 181/71 H 07/13/18 18:23 O2 Sat by Pulse Oximetry (%) 100 07/13/18 18:23 *DC/Admit/Observation/Transfer Diagnosis at time of Disposition: Hypertension Qualifiers: Hypertension type: essential hypertension Qualified Code(s): I10 - Essential ( primary) hypertension - Discharge Dispostion Disposition: HOME - Prescriptions Prescriptions: Valsartan [Diovan] 40 mg PO DAILY #30 tablet - Referrals Referrals: Adrianna Willams MD [Primary Care Provider] - Jacobo Cedillo MD [Staff Physician] - - Patient Instructions Printed Discharge Instructions: DI for High Blood Pressure Additional Instructions: You came in for elevated blood pressure We did testing and found you were not having any immediately concerning problems with your heart. We gave you a prescription for Diovan 40mg ONCE a Day. Please follow up with your Primary Care doctor within 1 week to discuss continuing blood pressure medications. Please follow up with your [employer] Installer to discuss your overall heart health and starting new blood pressure medications. Please return to the ED if you are experiencing worsening chest pain, worsening shortness of breath or any other concerning symptoms. - Post Discharge Activity
[2018-07-13] MEDS ORDERED: VALSARTAN 40 MG TABLET (FP) PO ONE (20:09)
--- NOTE | 2018-07-13 20:13 | PDOC ---
Attending Attestation - HPI HPI: 07/13/18 20:13 58 YOF with PMH of afib on Xarelto presenting chest tightness, intermittent shortness of breath on exertion, and a throbbing sensation in her neck since yesterday. Patient states that she feels these symptoms whenever her blood pressure is elevated. Patient measured her bp today, which was found to be 150s systolic over 100 diastolic. Patient does not attribute these symptoms to changes in position or exertion. Patient had an ablation of a superficial vein in the right leg 2 weeks ago. Allergies: NKDA Assistant Prosecuting Attorney: Dr. Cedillo - Physicial Exam PE: 07/13/18 20:23 ADULT EXAM GENERAL: Awake, alert, and fully oriented, in no acute distress EYES: PERRLA, EOMI, sclera anicteric, conjunctiva clear ENT: Auricles normal inspection, hearing grossly normal, nares patent, oropharynx clear without exudates. Moist mucosa NECK: Normal ROM, supple, no lymphadenopathy, JVD, or masses LUNGS: Breath sounds equal, clear to auscultation bilaterally. No wheezes, and no crackles HEART: Regular rate and rhythm, normal S1 and S2, no murmurs, rubs or gallops ABDOMEN: Soft, nontender, normoactive bowel sounds. No guarding, no rebound. No masses EXTREMITIES: Normal range of motion, no edema. No clubbing or cyanosis. No cords, erythema, or tenderness NEUROLOGICAL: Cranial nerves II through XII grossly intact. Normal speech, normal gait SKIN: Warm, Dry, normal turgor, no rashes or lesions noted. <Kandy Mora - Last Filed: 07/13/18 20:23> - Resident Resident Name: Leon Jha - ED Attending Attestation I have performed the following: I have examined & evaluated the patient, The case was reviewed & discussed with the resident, I agree w/resident's findings & plan - Medical Decision Making 07/14/18 20:51 Pt states that despite being completely compliant with her meds and her low sodium diet, she continues to have elevated BPs on a regular basis. She will be given diovan here and rx for 30 days of diovan. Follow with PMD. <Shayy Feldman - Last Filed: 07/14/18 20:52> Heart Score/ECG Review - ECG Intrepretation Rhythm: Regular Rhythm - [place]: Normal - ST and T Early Repolarization: No Non Specific ST-T Wave changes: Yes Prolonged Q-T Interval: No - ECG Impressions Acute Myocardial Infarction: Anterolateral (Same as old pattern from Apr 2018) <Shayy Feldman - Last Filed: 07/14/18 20:52>
[2018-07-13] MEDS ORDERED: VALSARTAN 80 MG TABLET (UD) ONE (20:16)
[2018-07-13 21:41] VITALS: BP 147/77; PULSE 75
--- NOTE | 2018-07-14 13:28 | EKG ---
Test Reason : Blood Pressure : / mmHG Vent. Rate : 073 BPM Atrial Rate : 073 BPM P-R Int : 168 ms QRS Dur : 078 ms QT Int : 394 ms P-R-T Axes : 052 -23 022 degrees QTc Int : 434 ms POOR DATA QUALITY, INTERPRETATION MAY BE ADVERSELY AFFECTED NORMAL SINUS RHYTHM POSSIBLE ANTERIOR INFARCT (CITED ON OR BEFORE 13-MAY-2018) ABNORMAL ECG WHEN COMPARED WITH ECG OF 13-MAY-2018 01:12, NO SIGNIFICANT CHANGE WAS FOUND Confirmed by MESHA DRAKE MD ([id number]) on 07/14/2018 1:27:43 PM Referred By: Confirmed By:MESHA DRAKE MD
== END 2018-07-13 21:45 | disposition home or self-care (01) ==
LOC: JER 18:20
DX: I10 Essential (primary) hypertension (principal); I48.91 Unspecified atrial fibrillation; Z79.01 Long term (current) use of anticoagulants; H93.13 Tinnitus, bilateral; Z87.19 Personal history of other diseases of the digestive system; Z86.73 Personal history of transient ischemic attack (TIA), and cerebral infarction without residual deficits
CPT/HCPCS: 36415; 82550; 84484; 93005; 93010; 99282-25

== ENCOUNTER 2018-07-26 17:16 | Emergency (ER) | payer OTHER ==
--- NOTE | 2018-07-26 17:27 | PDOC ---
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
--- NOTE | 2018-07-26 17:49 | PDOC ---
History of Present Illness - General Chief Complaint: Tachycardia Stated Complaint: CHEST PAIN Time Seen by Provider: 07/26/18 17:22 History Source: Patient Exam Limitations: No Limitations - History of Present Illness Initial Comments: 07/26/18 18:19 58 year old female with PMH atrial fibrillation s/p ablation (x3 years ago) on Xarelto, HTN, diverticulitis s/p bowel resection presented to ED for palpitation episode lasting from 1600 to 1730. She stated she took an extra Metoprolol XR 25 mg at 1610. She stated during the episode she had shortness of breath, lightheadedness, left sided chest pain. She stated she is currently symptom free. Family cardiac history: Mother - [place] - 67 yo Father - [place] w/ [place] - 52 yo Maternal Grandfather - [place] - 87 yo Allergies: NKDA PCP: Adrianna Mariscal Wheel Aligner: Dr. Mayer. Past History - Past Medical History Allergies/Adverse Reactions: Allergies Allergy/AdvReac Type Severity Reaction Status Date / Time No Known Allergies Allergy Verified 01/31/18 23:09 Home Medications: Ambulatory Orders Rivaroxaban [Xarelto -] 20 mg PO DAILY #0 09/22/16 Metoprolol Succinate [Toprol Xl -] 25 mg PO DAILY #30 tab.sr.24h MDD 1 02/18/17 Ranitidine [Zantac -] 150 mg PO BID 07/13/18 Valsartan [Diovan] 40 mg PO DAILY #30 tablet 07/13/18 Metoprolol Succinate [Toprol Xl] 50 mg PO DAILY #10 tab.er.24h 07/26/18 Anemia: No Asthma: No Cancer: No Cardiac Disorders: Yes (murmer, atrial fibrillation, ABLATION) CVA: Yes (tia ?) COPD: No CHF: No Dementia: No Diabetes: No GI Disorders: Yes (DIVERTICULOSIS; POLYP STOMACH; REFLUX; H/H) Disorders: No HTN: Yes Hypercholesterolemia: No Liver Disease: No Seizures: No Thyroid Disease: No - Surgical History Abdominal Surgery: Yes Appendectomy: Yes Cardiac Surgery: No Cholecystectomy: Yes GI Surgery: Yes (INTESTINAL RESECTION) Lung Surgery: No Neurologic Surgery: No Orthopedic Surgery: No - Immunization History Immunization Up to Date: Yes - Suicide/Smoking/Psychosocial Hx Smoking Status: No Smoking History: Never smoked Have you smoked in the past 12 months: No Number of Cigarettes Smoked Daily: 0 If you are a former smoker, when did you quit?: 1988 'Breaking Loose' booklet given: 05/12/12 Hx Alcohol Use: No Drug/Substance Use Hx: No Substance Use Type: None Hx Substance Use Treatment: No Review of Systems - Review of Systems Able to Perform ROS?: Yes Comments:: 07/26/18 18:23 General: admitted to generalized weakness. denied fever, chills, night sweats. HEENT: denied sore throat, rhinorrhea, ear pain. Heart: admitted to chest pain, palpitations, lightheadedness. denied syncope, lower extremity swelling, diaphoresis. Respiratory: admitted to shortness of breath. denied cough, sputum production, hemoptysis. Abdomen: denied abdominal pain, nausea, vomiting, diarrhea, constipation, blood in stool. : denied dysuria, increased urinary frequency, hematuria, urinary incontinence , flank pain. Back: denied back pain. Musculoskeletal: denied joint pain, muscle pain, joint swelling. Neurological: denied headache, dizziness, numbness, tingling, weakness. Skin: denied rash, laceration, abrasion. *Physical Exam - Physical Exam Comments: 07/26/18 18:23 Constitutional: Well-nourished, Well-developed, appearing stated age. HEENT: head is normocephalic, atraumatic. EOMI. PERRLA. Neck: supple. Full ROM. Heart: regular rhythm. no murmurs, rubs or gallops. Lungs: clear to auscultation bilaterally. no crackles, rhonchi or wheezing. no stridor. Abdomen: soft, nontender. normal bowel sounds. no rebound, guarding, masses. Extremities: Peripheral pulses intact. bilateral nonpitting lower extremity edema, symmetrical. Neurological: CN 2-12 grossly intact. Moves all four extremities. Psych: awake, alert, oriented x3. Follows commands. Answers questions appropriately. Vital Signs - Vital Signs #2 Blood Pressure: 145/83 MAP: 103 BP Location: Left Arm Blood Pressure Position: Sitting Pulse Rate: 74 Respiratory Rate: 16 Heart Score/ECG Review - History History: Slightly suspicious - Electrocardiogram EKG: Normal - Age Age: 45-65 - Risk Factors Risk Factors Heart Score: Yes Hx Hypertension Based on the list above the patient has:: 1-2 risk factors - Troponin Troponin: </= normal limit - Score Heart Score - Total: 2 ED Treatment Course - LABORATORY CBC & Chemistry Diagram: 07/26/18 18:07 07/26/18 18:07 Medical Decision Making - Medical Decision Making 07/26/18 18:24 58 year old female with pertinent PMH of atrial fibrillation, HTN presented to ED for episode of palpitations associated with shortness of breath, lightheadedness, generalized weakness, chest pain that resolved after she took 1 additional Metoprolol XR 25 mg at 1610 today. Initial Vital Signs Temp Pulse Resp BP Pulse Ox 97.5 F L 130 H 16 142/81 100 07/26/18 17:57 07/26/18 17:57 07/26/18 17:57 07/26/18 17:57 07/26/18 17:57 Mild hypothermia, no systemic infectious symptoms. Tachycardic. No tachypnea. Mild hypertension. No hypoxia on room air. EKG performed at 1720: rate 130, normal axis, irregularly irregular rhythm, nonspecific ST changes. Atrial fibrillation with RVR. Vitals repeated after symptom resolution: Vital Signs Pulse Rate 74 07/26/18 18:26 Respiratory Rate 16 07/26/18 18:26 Blood Pressure 145/83 07/26/18 18:26 O2 Sat by Pulse Oximetry (%) 100 07/26/18 18:26 Tachycardia improved. Normal sinus rhythm on hall monitor. - Pending repeat EKG Labs ordered: CBC, CMP, TSH, cardiac enzymes Medications ordered: none Imaging ordered: CXR 07/26/18 18:33 CBC WBC 8.5 K/mm3 (4.0-10.0) 07/26/18 18:07 RBC 4.64 M/mm3 (3.60-5.2) 07/26/18 18:07 Hgb 13.8 GM/dL (10.7-15.3) 07/26/18 18:07 Hct 39.6 % (32.4-45.2) 07/26/18 18:07 MCV 85.2 fl (80-96) 07/26/18 18:07 MCH 29.6 pg (25.7-33.7) 07/26/18 18:07 MCHC 34.8 g/dl (32.0-36.0) 07/26/18 18:07 RDW 13.3 % (11.6-15.6) 07/26/18 18:07 Plt Count 297 K/MM3 (134-434) 07/26/18 18:07 MPV 8.0 fl (7.5-11.1) 07/26/18 18:07 Absolute Neuts (auto) 5.6 K/mm3 (1.5-8.0) 07/26/18 18:07 Neutrophils % 65.4 % (42.8-82.8) 07/26/18 18:07 Lymphocytes % 26.6 % (8-40) D 07/26/18 18:07 Monocytes % 5.5 % (3.8-10.2) 07/26/18 18:07 Eosinophils % 1.5 % (0-4.5) 07/26/18 18:07 Basophils % 1.0 % (0-2.0) 07/26/18 18:07 Nucleated RBC % 0 % (0-0) 07/26/18 18:07 No leukocytosis. No anemia. 07/26/18 18:49 CMP Sodium 143 mmol/L (136-145) 07/26/18 18:07 Potassium 4.5 mmol/L (3.5-5.1) 07/26/18 18:07 Chloride 108 mmol/L (98-107) H 07/26/18 18:07 Carbon Dioxide 29 mmol/L (21-32) 07/26/18 18:07 Anion Gap 6 MMOL/L (8-16) L 07/26/18 18:07 BUN 16 mg/dL (7-18) 07/26/18 18:07 Creatinine 0.6 mg/dL (0.55-1.3) 07/26/18 18:07 Creat Clearance w eGFR > 60 (>60) 07/26/18 18:07 Random Glucose 97 mg/dL (74-106) 07/26/18 18:07 Calcium 9.0 mg/dL (8.5-10.1) 07/26/18 18:07 Total Bilirubin 0.5 mg/dL (0.2-1) 07/26/18 18:07 AST 12 U/L (15-37) L 07/26/18 18:07 ALT 21 U/L (13-61) 07/26/18 18:07 Alkaline Phosphatase 159 U/L (45-117) H 07/26/18 18:07 Creatine Kinase 75 IU/L (26-192) 07/26/18 18:07 Troponin I < 0.02 ng/ml (0.00-0.05) 07/26/18 18:07 Total Protein 6.9 g/dl (6.4-8.2) 07/26/18 18:07 Albumin 3.7 g/dl (3.4-5.0) 07/26/18 18:07 No clinically significant electrolyte abnormalities. No ROSARIO. Normal cardiac enzymes. TSH normal. INR, PTT INR 1.58 (0.83-1.09) H 07/26/18 18:07 Pt is on Xarelto. Pending repeat EKG, repeat troponin. I spoke with Dr. Mayer about the case, he stated that if all labs are david , including two troponins, and patient continues to be symptoms free, that she can be dishcarged and follow up as an outpatient. He advises increasing Metoprolol dose from 25 mg daily to 50 mg daily. Will continue to observe patient. 07/26/18 19:10 Pt now reported change in her medications from ARB to ACEI in the last few days by Adrianna Mariscal. Pt has uterine polyp surgery planned, and would like ot know if she can double her metoprolol wiht upcoming procedure, and if she should do anything differently pre-op. Adrianna Mariscal paged. 07/26/18 19:30 Repeat EKG performed at 1917: rate 62, regular rhythm, normal axis, normal intervals, nonspecific ST changes. Sinus rhythm. 07/26/18 20:24 CXR my read: sharp costophrenic angles. no cardiomegaly. no infiltrate. no large pneumothorax. - Pending official read 07/26/18 20:55 Pt reassessed, was sleeping comfortably, reported no epidose of chest pain, palpitations or shortness of breath in ED. Repeat vitals: Vital Signs Temperature 97.5 F L 07/26/18 17:57 Pulse Rate 74 07/26/18 20:55 Respiratory Rate 16 07/26/18 20:55 Blood Pressure 145/83 07/26/18 20:55 O2 Sat by Pulse Oximetry (%) 99 07/26/18 20:55 07/26/18 22:[address] Mayer, who stated pt can take increased metoprolol dose with lisinopril. He advised she see him in the office before her upcoming surgery. Pt informed, stated she has an appointment 08/09/18, I informed her of the importance of moving this appointment up. She stated she will call the office tomorrow morning to move her appointment up. 07/26/18 22:53 Second troponin negative. Repeat EKG performed at 2256: rate 71, regular rhythm, normal axis, normal intervals, nonspecific ST changes. No recurrence of symptoms. Pt to be discharged with 10 day supply of Toprol XL 50 mg daily. Pt to follow up with PCP and cardio in 1-2 days. Pt agrees with plan for care and agrees to follow up. *DC/Admit/Observation/Transfer Diagnosis at time of Disposition: Chest pain, Palpitations, Atrial fibrillation with RVR - Discharge Dispostion Disposition: HOME Condition at time of disposition: Stable Decision to Admit order: No - Prescriptions Prescriptions: Metoprolol Succinate [Toprol Xl] 50 mg PO DAILY #10 tab.er.24h - Referrals Referrals: Adrianna Willams MD [Primary Care Provider] - - Patient Instructions Printed Discharge Instructions: DI for Atrial Fibrillation, DI for Palpitations Additional Instructions: You were seen today for palpitations. Lab work: normal Chest X-ray: normal Your clothing man recommended that you increase your metoprolol dose from 25 mg daily to 50 mg daily. I have sent you a prescription to your pharmacy. Your clothing man recommended that you see him before your upcoming surgery. Call his office tomorrow morning and tell them you were seen in the Emergency Department, and your doctor was called and stated that he wants to see you before your surgery. It is very important that you see him so that he can manage your medications before you have surgery. Follow up with your primary care doctor in 1-2 days. Follow up with your clothing man in 1-2 days. Return to the Emergency Department for chest pain, shortness of breath, palpitations, lightheadedness like you may pass out, or any other new, worsening or concerning symptoms. - Post Discharge Activity Forms/Work/School Notes: Back to Work Vital Signs - Vital Signs Pulse Rate: 74 Respiratory Rate: 16 Blood Pressure: 125/70 BP Location: Left Arm Blood Pressure Position: Supine
[2018-07-26 18:02] VITALS: TEMP 97.5; BMI 34.0
[2018-07-26 18:15] LABS: EOS % 1.5 % (0-4.5); HEMATOCRIT 39.6 % (32.4-45.2); HEMOGLOBIN 13.8 GM/dL (10.7-15.3); LYMPH % 26.6 % (8-40); MCH 29.6 pg (25.7-33.7); MCHC 34.8 g/dl (32.0-36.0); MEAN CELL VOLUME 85.2 fl (80-96); MONO % 5.5 % (3.8-10.2); NEUT % 65.4 % (42.8-82.8); PLATELET COUNT 297 K/MM3 (134-434); RBC 4.64 M/mm3 (3.60-5.2); RDW 13.3 % (11.6-15.6); WHITE BLOOD COUNT 8.5 K/mm3 (4.0-10.0)
[2018-07-26 18:31] LABS: INR 1.58 (0.83-1.09); PROTHROMBIN TIME (PATIENT) 18.7 SEC (9.7-13.0)
[2018-07-26 18:47] LABS: ALBUMIN 3.7 g/dl (3.4-5.0); ALK PHOS 159 U/L (45-117); ANION GAP 6 MMOL/L (8-16); BILIRUBIN,TOTAL 0.5 mg/dL (0.2-1); BLOOD UREA NITROGEN 16 mg/dL (7-18); CHLORIDE 108 mmol/L (98-107); CO2 29 mmol/L (21-32); CREATININE 0.6 mg/dL (0.55-1.3); GLUCOSE,RANDOM 97 mg/dL (74-106); POTASSIUM 4.5 mmol/L (3.5-5.1); SGOT/AST 12 U/L (15-37); SGPT/ALT 21 U/L (13-61); SODIUM 143 mmol/L (136-145); TOT PROT 6.9 g/dl (6.4-8.2)
[2018-07-26 18:51] VITALS: PULSE 74
--- NOTE | 2018-07-26 19:29 | PDOC ---
Attending Attestation - Resident Resident Name: Mary Ann Aguilar - ED Attending Attestation I have performed the following: I have examined & evaluated the patient, The case was reviewed & discussed with the resident, I agree w/resident's findings & plan - HPI HPI: 07/26/18 19:25 58-year-old female with history of paroxysmal A. 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 Patient took an additional dose of her metoprolol but after symptoms persisted for one hour she presented to the emergency department. Upon arrival and 1.5 hours after onset, symptoms resolved. She is now asymptomatic. Patient has been in good state of health, has no exercise limitations, recently had RICARDO inhibitor added to her blood pressure regimen. No history of CAD or stents - Physicial Exam PE: 07/26/18 19:26 Afebrile, heart rate 70, blood pressure normal Well-appearing seated in stretcher speaking full sentences Heart is regular to auscultation without murmurs or ectopy Lungs are clear Trace ankle edema symmetric bilaterally without calf tenderness - Medical Decision Making 07/26/18 19:27 58-year-old female with history of atrial fibrillation status post ablation presents with acute onset of intrafibrillation with rapid ventricular response 1.5 hours prior to arrival. Patient was in atrial fibrillation with RVR on arrival, broke spontaneously and now in sinus rhythm with resolution of her symptoms. No other red flags on history or physical exam. Check labs including troponin 2 Chest x-ray EKGs confirmed A. fib with RVR and now returned to sinus with normal rate Discussed with Dr. Cedillo, her grease press helper, who agrees with plan to monitor in the ED with troponin 2 and discharge home if negative to follow-up in the office 07/26/18 22:52 trop negative x2, remained in sinus and asx, plan confirmed with Dr. Cedillo (double BB dose and continue ricardo-inh), who will see pt before her scheduled procedure later this month Heart Score/ECG Review #2 ECG reviewed & interpreted by me at: 19:17 General ECG Interpretation: Sinus Rhythm, Normal Rate (62), Normal Intervals ( qtc 434), No acute ischemic changes #1 ECG reviewed & interpreted by me at: 17:20 07/26/18 19:30 afib with rvr at 130, no acute st changes. QTC 494
[2018-07-26 20:55] VITALS: BP 125/70
--- NOTE | 2018-07-27 11:54 | EKG ---
Test Reason : Blood Pressure : / mmHG Vent. Rate : 071 BPM Atrial Rate : 071 BPM P-R Int : 168 ms QRS Dur : 076 ms QT Int : 428 ms P-R-T Axes : 046 -07 030 degrees QTc Int : 465 ms NORMAL SINUS RHYTHM NORMAL ECG WHEN COMPARED WITH ECG OF 26-JUL-2018 19:17, NO SIGNIFICANT CHANGE WAS FOUND Confirmed by ONEL REYES MD ([id number]) on 07/27/2018 11:54:07 AM Referred By: Confirmed By:ONEL REYES MD
--- NOTE | 2018-07-27 11:55 | EKG ---
Test Reason : Blood Pressure : / mmHG Vent. Rate : 062 BPM Atrial Rate : 062 BPM P-R Int : 160 ms QRS Dur : 070 ms QT Int : 428 ms P-R-T Axes : 060 -06 034 degrees QTc Int : 434 ms NORMAL SINUS RHYTHM NORMAL ECG WHEN COMPARED WITH ECG OF 26-JUL-2018 14:41, NO SIGNIFICANT CHANGE WAS FOUND Confirmed by ONEL REYES MD ([id number]) on 07/27/2018 11:55:17 AM Referred By: Confirmed By:ONEL REYES MD
--- NOTE | 2018-07-27 12:01 | EKG ---
Test Reason : Blood Pressure : / mmHG Vent. Rate : 130 BPM Atrial Rate : 214 BPM P-R Int : 000 ms QRS Dur : 082 ms QT Int : 336 ms P-R-T Axes : 000 -06 -35 degrees QTc Int : 494 ms ATRIAL FIBRILLATION WITH RAPID VENTRICULAR RESPONSE SEPTAL INFARCT (CITED ON OR BEFORE 13-MAY-2018) ABNORMAL ECG WHEN COMPARED WITH ECG OF 26-JUL-2018 14:41, ATRIAL FIBRILLATION HAS REPLACED SINUS RHYTHM VENT. RATE HAS INCREASED BY [address] NOW DEPRESSED IN INFERIOR LEADS NONSPECIFIC T WAVE ABNORMALITY NOW EVIDENT IN LATERAL LEADS Confirmed by ONEL REYES MD ([id number]) on 07/27/2018 12:01:17 PM Referred By: Confirmed By:ONEL REYES MD
== END 2018-07-26 23:14 | disposition home or self-care (01) ==
LOC: JER 17:16
DX: I48.0 Paroxysmal atrial fibrillation (principal); Z79.01 Long term (current) use of anticoagulants; I10 Essential (primary) hypertension
CPT/HCPCS: 36415; 71045-TC-FY; 80053; 82550; 84443; 84484; 85025; 85610; 85730; 93005; 93010; 99283-25

== ENCOUNTER → 2018-08-20 | Day surgery (SDC) | payer OTHER | END | disposition home or self-care (01) | LOC: JASU-SURG 04:58 | PROVIDERS: ATTEND Obstetrics & Gynecology | DX: Z53.8 Procedure and treatment not carried out for other reasons (principal) ==

== ENCOUNTER 2018-09-09 21:00 | Emergency (ER) | payer OTHER ==
[2018-09-09 21:40] VITALS: TEMP 97.9; BMI 33.6
--- NOTE | 2018-09-09 21:45 | PDOC ---
History of Present Illness - History of Present Illness Initial Comments: 58yo F with PMH of HTN, paroxysmal Afib s/p ablation, diverticulitis s/p bowel resection presenting with hypertension. Patient states she checks her blood pressure everyday, but not at the same time everyday. After her evening dose of lisinopril, patient felt lightheaded and felt chest pain around 7pm. She checked her blood pressure and found it to be 180/107 which is higher than her usual systolic in the 130s. The chest pain is substernal and described as "pressure." She has felt this way before: "I have pain in my chest all the time when my blood pressure is high." The pain is non-radiating, non-palpable, and non-pleuritic. Patient endorses nausea, but is not currently nauseous. Both her mother and father had MIs. Patient reports feeling she was in afib for a couple seconds earlier this evening. Denies fever, chills, headache, vision changes, abdominal pain, or urinary symptoms. <Aziza Aly - Last Filed: 09/09/18 23:56> <Shayy Feldman - Last Filed: 09/10/18 00:07> - General Chief Complaint: Blood Pressure Problem Stated Complaint: HIGH BLOOD PRESSURE Time Seen by Provider: 09/09/18 21:44 Past History - Past Medical History Anemia: No Asthma: No Cancer: No Cardiac Disorders: Yes (murmer, atrial fibrillation, ABLATION) CVA: Yes (tia ?) COPD: No CHF: No Dementia: No Diabetes: No GI Disorders: Yes (DIVERTICULOSIS; POLYP STOMACH; REFLUX; H/H) Disorders: No HTN: Yes Hypercholesterolemia: No Liver Disease: No Seizures: No Thyroid Disease: No - Surgical History Abdominal Surgery: Yes Appendectomy: Yes Cardiac Surgery: No Cholecystectomy: Yes GI Surgery: Yes (INTESTINAL RESECTION) Lung Surgery: No Neurologic Surgery: No Orthopedic Surgery: No - Immunization History Immunization Up to Date: Yes - Suicide/Smoking/Psychosocial Hx Smoking Status: No Smoking History: Never smoked Have you smoked in the past 12 months: No Number of Cigarettes Smoked Daily: 0 If you are a former smoker, when did you quit?: 1988 Information on smoking cessation initiated: No 'Breaking Loose' booklet given: 05/12/12 Hx Alcohol Use: No Drug/Substance Use Hx: No Substance Use Type: None Hx Substance Use Treatment: No <Madisyn AlyAziza - Last Filed: 09/09/18 23:56> <Ene Feldmanreen - Last Filed: 09/10/18 00:07> - Past Medical History Allergies/Adverse Reactions: Allergies Allergy/AdvReac Type Severity Reaction Status Date / Time No Known Allergies Allergy Verified 01/31/18 23:09 Home Medications: Ambulatory Orders Rivaroxaban [Xarelto -] 20 mg PO DAILY #0 09/22/16 Metoprolol Succinate [Toprol Xl -] 25 mg PO DAILY #30 tab.sr.24h MDD 1 02/18/17 Ranitidine [Zantac -] 150 mg PO BID 07/13/18 Lisinopril 10 mg PO DAILY 09/09/18 Review of Systems - Review of Systems Comments:: Constitutional: no fever, no chills HEENT: no throat pain, no dysphagia Cardiovascular: +chest pain, no palpitations Respiratory: no cough, no shortness of breath Gastrointestinal: no abdominal pain, +nausea Genitourinary: no dysuria, no frequency Musculoskeletal: no myalgia, no arthralgia Skin: no rash, no itching Neurologic: no headache, +lightheaded <Aziza Aly - Last Filed: 09/09/18 23:56> *Physical Exam - Vital Signs Last Vital Signs Temp Pulse Resp BP Pulse Ox 97.9 F 76 20 169/95 97 09/09/18 21:36 09/09/18 21:36 09/09/18 21:36 09/09/18 21:36 09/09/18 21:36 - Physical Exam Comments: General: Awake, alert, and fully oriented, anxious-appearing Head: No signs of trauma Eyes: EOMI, sclera anicteric ENT: Moist mucus membranes Neck: Normal ROM, supple Lungs: Lungs clear, Normal breath sounds Cardio: Regular rate and rhythm, S1 and S2 present Abdomen: Soft, nontender Extremities: Normal range of motion, Distal pulses present SKIN: Warm, Dry, normal turgor Neurologic: Cranial nerves II through XII grossly intact. Normal speech <SheebaAziza - Last Filed: 09/09/18 23:56> - Vital Signs Last Vital Signs Temp Pulse Resp BP Pulse Ox 97.9 F 64 12 155/98 98 09/09/18 21:36 09/09/18 22:17 09/09/18 22:17 09/09/18 22:17 09/09/18 22:17 <Shayy Feldman - Last Filed: 09/10/18 00:07> Moderate Sedation - Procedure Monitoring Vital Signs: Procedure Monitoring Vital Signs Temperature 97.9 F 09/09/18 21:36 Pulse Rate 76 09/09/18 21:36 Respiratory Rate 20 09/09/18 21:36 Blood Pressure 169/95 09/09/18 21:36 O2 Sat by Pulse Oximetry (%) 97 09/09/18 21:36 <Aziza Aly - Last Filed: 09/09/18 23:56> - Procedure Monitoring Vital Signs: Procedure Monitoring Vital Signs Temperature 97.9 F 09/09/18 21:36 Pulse Rate 64 09/09/18 22:17 Respiratory Rate 12 09/09/18 22:17 Blood Pressure 155/98 09/09/18 22:17 O2 Sat by Pulse Oximetry (%) 98 09/09/18 22:17 <Shayy Feldman - Last Filed: 09/10/18 00:07> ED Treatment Course - LABORATORY CBC & Chemistry Diagram: 09/09/18 22:40 09/09/18 22:40 <Aziza Aly - Last Filed: 09/09/18 23:56> - LABORATORY CBC & Chemistry Diagram: 09/09/18 22:40 09/09/18 22:40 - ADDITIONAL ORDERS Additional order review: Laboratory Results 09/09/18 09/09/18 09/09/18 22:40 22:40 22:40 PT with INR 16.40 H INR 1.39 H PTT (Actin FS) 36.6 H Sodium 140 Potassium 4.4 Chloride 109 H Carbon Dioxide 30 Anion Gap 2 L BUN 10 Creatinine 0.6 Creat Clearance w eGFR > 60 Random Glucose 97 Calcium 8.4 L Total Bilirubin 0.3 AST 16 ALT 19 Alkaline Phosphatase 158 H Creatine Kinase 82 Troponin I < 0.02 Total Protein 6.6 Albumin 3.3 L 09/09/18 22:40 RBC 4.41 MCV 87.1 MCHC 34.5 RDW 13.1 MPV 8.4 Neutrophils % 62.0 Lymphocytes % 29.3 Monocytes % 6.3 Eosinophils % 1.6 Basophils % 0.8 - Medications Given in the ED: ED Medications Discontinued Medications Generic Name Dose Route Start Last Admin Trade Name Grey PRN Reason Stop Dose Admin Valsartan 40 mg 09/09/18 21:59 09/09/18 22:10 Diovan - PO 09/09/18 22:00 40 mg ONCE ONE Administration <Shayy Feldman - Last Filed: 09/10/18 00:07> Medical Decision Making - Medical Decision Making 58yo F with PMH of HTN, paroxysmal Afib s/p ablation, diverticulitis s/p bowel resection presenting with hypertension. DDX including but not limited to ACS, PNA, PE, Hypertensive urgency vs emergency , MSK CBC, CMP, Cardiac Profile, EKG, CXR EKG: rate 72, QTc 433, NSR, t wave inversions in V1-V3 (also present on previous EKGs) Diovan 40mg given for hypertension 09/09/18 22:47 No anemia or leukocytosis Pending chemistries 09/09/18 23:05 Electrolytes WNL Tpn negative 09/09/18 23:33 CXR without acute pathology (my impression) Patient feeling better, endorses no dizziness and 0/10 chest pain. Plan to discharge 09/09/18 23:48 <Aziza Aly - Last Filed: 09/09/18 23:56> *DC/Admit/Observation/Transfer <Aziza Aly - Last Filed: 09/09/18 23:56> <Shayy Feldman - Last Filed: 09/10/18 00:07> Diagnosis at time of Disposition: Hypertension, Chest pain - Discharge Dispostion Disposition: HOME Condition at time of disposition: Improved - Referrals Referrals: Adrianna Willams MD [Primary Care Provider] - Jacobo Cedillo MD [Staff Physician] - - Patient Instructions Printed Discharge Instructions: DI for Chest Pain Additional Instructions: You came into the ED for chest pain. We performed blood work, an EKG, and an Xray which was normal. Call both your truck striker and primary care physician tomorrow to discuss this ED visit and to schedule an appointment to further evaluate your chest pain. Call for emergency medicine services or go to the emergency room right away if you have symptoms of a heart attack, including: Chest pain, which may feel like a crushing weight A sense of fullness, squeezing, or pressure in the chest Rapid, irregular heartbeat Pain, tingling or numbness in the left shoulder and arm, the neck or jaw, or the right arm Sweating Nausea or vomiting Lightheadedness, weakness, or fainting Shortness of breath If you think you have an emergency, call for medical help right away. - Post Discharge Activity Forms/Work/School Notes: Back to School
[2018-09-09] MEDS ORDERED: VALSARTAN 40 MG TABLET (FP) PO ONE (21:59)
[2018-09-09] MEDS ORDERED: VALSARTAN 80 MG TABLET (UD) ONE (22:05)
[2018-09-09 22:26] VITALS: PULSE 64
[2018-09-09 22:57] LABS: BASO % 0.8 % (0-2.0); EOS % 1.6 % (0-4.5); HEMATOCRIT 38.4 % (32.4-45.2); HEMOGLOBIN 13.2 GM/dL (10.7-15.3); LYMPH % 29.3 % (8-40); MCHC 34.5 g/dl (32.0-36.0); MEAN CELL VOLUME 87.1 fl (80-96); MEAN PLT VOLUME 8.4 fl (7.5-11.1); MONO % 6.3 % (3.8-10.2); PLATELET COUNT 276 K/MM3 (134-434); RBC 4.41 M/mm3 (3.60-5.2); RDW 13.1 % (11.6-15.6); WHITE BLOOD COUNT 8.3 K/mm3 (4.0-10.0)
[2018-09-09 23:13] LABS: INR 1.39 (0.83-1.09); PROTHROMBIN TIME (PATIENT) 16.4 SEC (9.7-13.0)
[2018-09-09 23:26] LABS: ALBUMIN 3.3 g/dl (3.4-5.0); ALK PHOS 158 U/L (45-117); ANION GAP 2 MMOL/L (8-16); BILIRUBIN,TOTAL 0.3 mg/dL (0.2-1); BLOOD UREA NITROGEN 10 mg/dL (7-18); CALCIUM 8.4 mg/dL (8.5-10.1); CHLORIDE 109 mmol/L (98-107); CO2 30 mmol/L (21-32); CREATININE 0.6 mg/dL (0.55-1.3); GLUCOSE,RANDOM 97 mg/dL (74-106); POTASSIUM 4.4 mmol/L (3.5-5.1); SGOT/AST 16 U/L (15-37); SGPT/ALT 19 U/L (13-61); SODIUM 140 mmol/L (136-145); TOT PROT 6.6 g/dl (6.4-8.2)
--- NOTE | 2018-09-09 23:52 | PDOC ---
Attending Attestation - HPI HPI: 09/09/18 23:52 The patient is a 58 year old female with a PMH of HTN, paroxysmal Afib s/p ablation, and diverticulitis s/p bowel resection presents to the ER with elevated blood pressure this evening. Patient states she checks her blood pressure daily. Patient reports that her blood pressure after taking her lisinopril 10mg today was 180/107. Patient also notes associated lightheadedness , chest pressure, and felt like she was burning up today. Patient was concerned as she has had episodes of afib in the past. She denies any fever, chills, headache, vision changes, abdominal pain, or urinary symptoms. Allergies: NKA Past surgical history: s/p ablation, s/p bowel resection Social history: No reported alcohol, drug or cigarette use. PCP: Dr. Adrianna Willams - Physicial Exam PE: 09/09/18 23:52 ADULT EXAM GENERAL: Awake, alert, and fully oriented, in no acute distress LUNGS: Breath sounds equal, clear to auscultation bilaterally. No wheezes, and no crackles HEART: Regular rate and rhythm, normal S1 and S2, no murmurs, rubs or gallops ABDOMEN: Soft, nontender, normoactive bowel sounds. No guarding, no rebound. No masses EXTREMITIES: Normal range of motion, no edema. No clubbing or cyanosis. No cords, erythema, or tenderness NEUROLOGICAL: Cranial nerves II through XII grossly intact. Normal speech, normal gait SKIN: Warm, Dry, normal turgor, no rashes or lesions noted. <Kandy Mora - Last Filed: 09/09/18 23:52> - Resident Resident Name: Aziza Aly - ED Attending Attestation I have performed the following: I have examined & evaluated the patient, The case was reviewed & discussed with the resident, I agree w/resident's findings & plan - Medical Decision Making 09/09/18 23:56 Pt has normal labs. She has a normal EKG; no sign of afib runs. Pt is anxious. She states that she is scheduled for another ablation of her heart in September/October at [facility]. The first ablation was not successful in negating her runs of Afib. Pt is comfortable at this time. Her BP is down and she is stable for d/c home. <Shayy Feldman - Last Filed: 09/09/18 23:59>
[2018-09-10 00:24] VITALS: BP 103/84
--- NOTE | 2018-09-10 09:42 | EKG ---
Test Reason : Blood Pressure : / mmHG Vent. Rate : 072 BPM Atrial Rate : 072 BPM P-R Int : 168 ms QRS Dur : 082 ms QT Int : 396 ms P-R-T Axes : 049 -23 014 degrees QTc Int : 433 ms NORMAL SINUS RHYTHM POSSIBLE ANTERIOR INFARCT , AGE UNDETERMINED ABNORMAL ECG WHEN COMPARED WITH ECG OF 26-JUL-2018 22:56, NO SIGNIFICANT CHANGE WAS FOUND Confirmed by GLORY SUAREZ MD ([id number]) on 09/10/2018 9:42:20 AM Referred By: Confirmed By:GLORY SUAREZ MD
== END 2018-09-10 00:09 | disposition home or self-care (01) ==
LOC: JER 21:00
DX: I10 Essential (primary) hypertension (principal); I48.0 Paroxysmal atrial fibrillation; Z79.01 Long term (current) use of anticoagulants; Z86.79 Personal history of other diseases of the circulatory system
CPT/HCPCS: 36415; 71046-TC-FY; 80053; 82550; 84484; 85025; 85610; 85730; 93005; 93010; 99282-25

== ENCOUNTER 2018-11-30 19:48 | Observation (INO) | payer OTHER ==
[2018-11-30] MEDS ORDERED: ONDANSETRON 4 MG/2 ML VIAL IVPUSH ONE (20:57)
[2018-11-30] MEDS ORDERED: ONDANSETRON 4 MG/2 ML VIAL ONE (20:58)
[2018-11-30] MEDS ORDERED: SODIUM CHLORIDE 1,000 ML IV STA (21:11)
--- NOTE | 2018-11-30 21:19 | PDOC ---
History of Present Illness - General Chief Complaint: Nausea/Vomiting Stated Complaint: DIZZY AND NUMBNESS Time Seen by Provider: 11/30/18 21:06 History Source: Patient Exam Limitations: No Limitations - History of Present Illness Initial Comments: 11/30/18 21:17 Patient is a 58 year old female with history of diverticulitis (s/p bowel resection), Afib (on Xarelto, s/p ablation 10/2018 at [facility]). hypertension , GERD, presents with complaint of nausea, vomiting, and lightheadedness. Patient states symptoms began with sudden onset approx. 1-2 hours prior to presentation. She endorses first dizziness, followed by two episodes of vomiting that were billious, not bloody. She endorses transient left sided chest pressure with associated left 4th and 5th finger numbness when she vomited ; that has since fully resolved. Currently patient admits nausea, and dizziness. 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 She denies subjective fevers, chills, shortness of breath, chest pain, palpitations, abdominal pain, diarrhea, constipation, melena, hematochezia, dysuria, hematuria, hemoptysis. Denies prior occurrence of similar symptoms. PMH: diverticulitis, Afib, hypertension, GERD PSH: bowel resection, Afib ablation, appendectomy, cholecystectomy,tonsilectomy Family history Mother: hypertension, from [place] at 67 years old. Father at 52 years old due to lung, and gastric cancer Allergies: NKDA Social: lives with family. 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 Denies cigarette smoking, alcohol consumption, illicit drug use. Timing/Duration: 1-3 hours Severity: moderate Associated Symptoms: reports: nausea/vomiting, other (dizziness) Past History - Travel Traveled outside of the country in the last 30 days: No Close contact w/someone who was outside of country & ill: No - Past Medical History Allergies/Adverse Reactions: Allergies Allergy/AdvReac Type Severity Reaction Status Date / Time No Known Allergies Allergy Verified 11/30/18 20:15 Home Medications: Ambulatory Orders Rivaroxaban [Xarelto -] 20 mg PO DAILY #0 09/22/16 Metoprolol Succinate [Toprol Xl -] 25 mg PO DAILY #30 tab.sr.24h MDD 1 02/18/17 Ranitidine [Zantac -] 150 mg PO BID 12/28/18 Lisinopril 20 mg PO DAILY 09/09/18 Anemia: No Asthma: No Cancer: No Cardiac Disorders: Yes (murmer, atrial fibrillation, ABLATION) CVA: Yes (tia ?) COPD: No CHF: No Dementia: No Diabetes: No GI Disorders: Yes (DIVERTICULOSIS; POLYP STOMACH; REFLUX; H/H) Disorders: No HTN: Yes Hypercholesterolemia: No Liver Disease: No Seizures: No Thyroid Disease: No - Surgical History Abdominal Surgery: Yes Appendectomy: Yes Cardiac Surgery: No Cholecystectomy: Yes GI Surgery: Yes (INTESTINAL RESECTION) Lung Surgery: No Neurologic Surgery: No Orthopedic Surgery: No - Immunization History Immunization Up to Date: Yes - Suicide/Smoking/Psychosocial Hx Smoking Status: No Smoking History: Never smoked Have you smoked in the past 12 months: No Number of Cigarettes Smoked Daily: 0 If you are a former smoker, when did you quit?: 1988 Information on smoking cessation initiated: No 'Breaking Loose' booklet given: 05/12/12 Hx Alcohol Use: No Drug/Substance Use Hx: No Substance Use Type: None Hx Substance Use Treatment: No Review of Systems - Review of Systems Able to Perform ROS?: Yes Constitutional: No: Diaphoresis, Fever, Weakness HEENTM: No: Recent change in vision, Nose Congestion, Tinnitus, Throat Pain, Throat Swelling Respiratory: No: Cough, Orthopnea, Shortness of Breath, Stridor, Wheezing Cardiac (ROS): Yes: Lightheadedness, Chest Tightness (resolved). No: Edema ABD/GI: Yes: Nausea, Vomiting. No: Abdominal Distended, Blood Streaked Bowels, Constipated, Diarrhea, Difficulty Swallowing, Tarry Stools : No: Burning, Dysuria, Discharge, Hematuria Neurological: Yes: Dizziness. No: Headache, Numbness, Paresthesia *Physical Exam - Vital Signs Last Vital Signs Temp Pulse Resp BP Pulse Ox 98.5 F 91 H 20 143/85 97 11/30/18 19:48 11/30/18 19:48 11/30/18 19:48 11/30/18 19:48 11/30/18 19:48 - Physical Exam General Appearance: Yes: Appropriately Dressed, Mild Distress HEENT: positive: EOMI, FRANCIA. negative: Pale Conjunctivae, Photophobia, Scleral Icterus (R), Scleral Icterus (L), Tonsillar Exudate, Tonsillar Erythema, Nasal Congestion, Rhinorrhea Neck: positive: Supple. negative: Rigid, Stridor, Lymphadenopathy (R), Lymphadenopathy (L) Respiratory/Chest: positive: Lungs Clear, Normal Breath Sounds. negative: Respiratory Distress, Crackles, Rales, Rhonchi, Stridor, Wheezing Cardiovascular: positive: Regular Rhythm, Regular Rate, S1, S2. negative: Murmur Gastrointestinal/Abdominal: positive: Flat, Soft. negative: Tender, Organomegaly, Protuberent, Distended, Guarding, Rebound Extremity: positive: Normal Range of Motion. 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, Fully Oriented, Alert, Normal Mood/ Affect, Motor Strength 5/5 ED Treatment Course - LABORATORY CBC & Chemistry Diagram: 11/30/18 21:06 11/30/18 21:06 - RADIOLOGY Radiology Studies Ordered: Category Date Time Status ABDOMEN FLAT & UPRIGHT [RAD] Stat Radiology 11/30/18 21:12 Ordered - Medications Given in the ED: ED Medications Discontinued Medications Generic Name Dose Route Start Last Admin Trade Name Freq PRN Reason Stop Dose Admin Ondansetron HCl 4 mg 11/30/18 20:57 11/30/18 21:14 Zofran Injection IVPUSH 11/30/18 20:58 4 mg ONCE ONE Administration Medical Decision Making - Medical Decision Making 11/30/18 21:34 Patient is a 58 year old female with history of diverticulitis (s/p bowel resection), Afib (on Xarelto, s/p ablation 10/2018 at [facility]). hypertension , GERD, presents with complaint of nausea, vomiting, and lightheadedness. differential diagnosis not limited to: gastritis (viral vs. bacterial), vertigo , quesitonable ACS given transient chest tightness and left finger numbness, less likely small bowel obstruction as patient had bowel movement today, and abdomen is soft, nontender, nondistended. Gait is ataxic- patient feels dizzy with standing and any movements Negative Romberg test Intact finger to nose movements bilaterally. Strength 5/5 bilateral upper and lower extremities. Sensation grossly intact bilaterally. Will order: CBC, CMP EKG, troponins Zofran 4mg IV, Meclizine 25mg PO IV normal saline 1L bolus will reevaluate Case discussed with Dr. Holguin. Will roder CT head to evaluate for any intracranial bleeding as patient is on Xarelto. 11/30/18 23:32 Patient endorses feeling better after Meclizine and Zofran 12/01/18 00:18 No further vomiting, however patient's gait is still ataxic- not at patient's baseline. Will admit for observation, neurology evaluation. MRI brain without contrast Case discussed with admitting physician. *DC/Admit/Observation/Transfer Diagnosis at time of Disposition: Vertigo - Discharge Dispostion Condition at time of disposition: Fair Decision to Admit order: Yes - Referrals - Patient Instructions - Post Discharge Activity
[2018-11-30] MEDS ORDERED: MECLIZINE HCL 25 MG TABLET (FP) PO ONE (21:20)
[2018-11-30 21:24] LABS: HEMATOCRIT 37.7 % (32.4-45.2); HEMOGLOBIN 12.1 GM/dL (10.7-15.3); MCHC 32.1 g/dl (32.0-36.0); MEAN CELL VOLUME 87.2 fl (80-96); MEAN PLT VOLUME 8.3 fl (7.5-11.1); PLATELET COUNT 289 K/MM3 (134-434); RBC 4.32 M/mm3 (3.60-5.2); RDW 13.2 % (11.6-15.6); WHITE BLOOD COUNT 8.8 K/mm3 (4.0-10.0)
[2018-11-30] MEDS ORDERED: MECLIZINE HCL 25 MG TABLET (FP) ONE (21:24)
[2018-11-30 21:53] LABS: ALBUMIN 3.5 g/dl (3.4-5.0); ALK PHOS 132 U/L (45-117); ANION GAP 7 MMOL/L (8-16); BILIRUBIN,TOTAL 0.5 mg/dL (0.2-1); BLOOD UREA NITROGEN 10 mg/dL (7-18); CALCIUM 8.3 mg/dL (8.5-10.1); CHLORIDE 108 mmol/L (98-107); CO2 26 mmol/L (21-32); CREATININE 0.6 mg/dL (0.55-1.3); GLUCOSE,RANDOM 88 mg/dL (74-106); POTASSIUM 4.2 mmol/L (3.5-5.1); SGOT/AST 13 U/L (15-37); SGPT/ALT 19 U/L (13-61); SODIUM 141 mmol/L (136-145); TOT PROT 6.8 g/dl (6.4-8.2)
--- NOTE | 2018-11-30 22:00 | PDOC ---
Documentation entered by Kandy Mora SCRIBE, acting as scribe for Jason Reyes MD. Jason Reyes MD: This documentation has been prepared by the Morgan marie Daisy, SCRIBE, under my direction and personally reviewed by me in its entirety. I confirm that the documentation accurately reflects all work, treatment, procedures, and medical decision making performed by me. Attending Attestation - Resident Resident Name: Marcio Fisher - ED Attending Attestation I have performed the following: I have examined & evaluated the patient, The case was reviewed & discussed with the resident, I agree w/resident's findings & plan, Exceptions are as noted - HPI HPI: 11/30/18 21:06 The patient is a 58YOF with a PMH of afib s/p 2 ablations (last ablation was 3 weeks ago), GERD, and diverticulitis s/p resection who presents to the ER for sudden onset dizziness and 2 episodes of bilious vomit. Pt endorses room- spinning dizziness that is worse with lying flat and alleviated by sitting up. She notes that she cannot walk steadily. Pt denies abdominal pain but endorses severe nausea associated with the dizziness. She states she had left sided chest tightness during her second episode of vomiting. She reports eating home- cooked breakfast this morning and did not have anything out of the ordinary. She has not had any episodes of vomit here in the ED but does admit to persistent dizziness and nausea. Denies any weakness/numbness in any extremity. Denies diaphoresis, fever, chills, urinary symptoms, hematechezia. Allergies: NKDA Surgeries: cholecystectomy Social: Denies toxic habits. - Physicial Exam PE: 11/30/18 21:53 "GENERAL: Awake, alert, and fully oriented, in no acute distress. HEAD: No signs of trauma EYES: PERRLA, EOMI, sclera anicteric, conjunctiva clear ENT: Auricles normal inspection, hearing grossly normal, nares patent, oropharynx clear without exudates. Moist mucosa NECK: Nontender, no stepoffs, Normal ROM, supple, no lymphadenopathy, JVD, or masses LUNGS: Breath sounds equal, clear to auscultation bilaterally. No wheezes, and no crackles HEART: Regular rate and rhythm, normal S1 and S2, no murmurs, rubs or gallops ABDOMEN: Soft, nontender, normoactive bowel sounds. No guarding, no rebound. No masses EXTREMITIES: Normal range of motion, no edema. No clubbing or cyanosis. No cords, erythema, or tenderness NEUROLOGICAL: + ataxic gait, Cranial nerves II through XII intact. 5/5 strength and sensation in all extremities, Normal speech SKIN: Warm, Dry, normal turgor, no rashes or lesions noted. - Medical Decision Making 11/30/18 21:58 58 F with vertigo. Unclear whether this is central vs peripheral as pt has never had prior episodes of vertigo. Given h/o afib, pt high risk of CVA, though she does not have any other neuro deficits at this time. - Labs - CT head - IVF, meclizine, zofran - Neuro consult 12/01/18 00:[address] head negative Pt reassessed - still dizzy, ataxic, unable to ambulate steadily Will admit for further work up and treatment
--- NOTE | 2018-12-01 01:24 | HP ---
CHIEF COMPLAINT: PCP: HISTORY OF PRESENT ILLNESS: Thank you Dr. Baldwin for allowing Haylee to take part in the ongoing management of your patients. Briefly, this is a pleasant 58 y/o female presenting to the ER with vertigo symptoms (stereotyped sudden onset rotational motion). Associated with 2 episodes of NBNB vomiting. No recent head trauma, etc. Symptoms were unrelenting so she chose to come to the ER for further treatment and monitoring. There she was given Meclizine, zofran, 1L bolus but with persisting ataxic gait. Negative rhomberg, CN intact, UE/LE intact, finger to nose intact. No nystagmus noted post meclizine. Dr. Resendez stated to keep her due to ataxia and he will see her in the AM. She is on xarelto; no bleed on non-contrast CT. She has had dizziness in the past but not this severe ; she denies previous treatment for vertigo and has seen a neurologist in the past for unrelated sx who she does not recall their name nor why she stopped following Recent Travel: None PAST MEDICAL HISTORY: Afib on xarelto, HTN, Fibromyalgia PAST SURGICAL HISTORY: No nsgy procedures Social History: No IVDU, no ETOH abuse Family History: Asked and noncontributory Allergies No Known Allergies Allergy (Verified 11/30/18 20:15) HOME MEDICATIONS: Home Medications Medication Instructions Recorded Rivaroxaban [Xarelto -] 20 mg PO DAILY #0 09/22/16 Metoprolol Succinate [Toprol Xl -] 25 mg PO DAILY #30 tab.sr.24h MDD 1 02/18/17 Ranitidine [Zantac -] 150 mg PO BID 07/13/18 Lisinopril 20 mg PO DAILY 09/09/18 REVIEW OF SYSTEMS 10 sys ROS done and negative aside from HPI PHYSICAL EXAMINATION Vital Signs - 24 hr 11/30/18 12/01/18 19:48 00:34 Temperature 98.5 F Pulse Rate 91 H Pulse Rate [ 67 Left] Respiratory 20 17 Rate Blood Pressure 143/85 Blood Pressure 130/63 [Left Arm] O2 Sat by Pulse 97 98 Oximetry (%) GENERAL: Awake, alert, and fully oriented, in no acute distress. HEAD: Normal with no signs of trauma. EYES: Pupils equal, round and reactive to light, extraocular movements intact, sclera anicteric, conjunctiva clear. No lid lag. EARS, NOSE, THROAT: Ears normal, nares patent, oropharynx clear without exudates. Moist mucous membranes. NECK: Normal range of motion, supple without lymphadenopathy, JVD, or masses. LUNGS: Breath sounds equal, clear to auscultation bilaterally. No wheezes, and no crackles. No accessory muscle use. HEART: Regular rate and rhythm, normal S1 and S2 without murmur, rub or gallop. ABDOMEN: Soft, nontender, not distended, normoactive bowel sounds, no guarding, no rebound, no masses. No hepatomegaly or splenomegaly. MUSCULOSKELETAL: Normal range of motion at all joints. No bony deformities or tenderness. No CVA tenderness. UPPER EXTREMITIES: 2+ pulses, warm, well-perfused. No cyanosis. No clubbing. No peripheral edema. LOWER EXTREMITIES: 2+ pulses, warm, well-perfused. No calf tenderness. No peripheral edema. NEUROLOGICAL: Cranial nerves II-XII intact. Normal speech. Normal gait. PSYCHIATRIC: Cooperative. Good eye contact. Appropriate mood and affect. SKIN: Warm, dry, normal turgor, no rashes or lesions noted, normal capillary refill. Laboratory Results - last 24 hr 11/30/18 11/30/18 21:06 21:06 WBC 8.8 RBC 4.32 Hgb 12.1 Hct 37.7 MCV 87.2 MCH 28.0 MCHC 32.1 RDW 13.2 Plt Count 289 MPV 8.3 Sodium 141 Potassium 4.2 Chloride 108 H Carbon Dioxide 26 Anion Gap 7 L BUN 10 Creatinine 0.6 Est GFR (CKD-EPI)AfAm 117.27 Est GFR (CKD-EPI)NonAf 101.18 Random Glucose 88 Calcium 8.3 L Total Bilirubin 0.5 AST 13 L ALT 19 Alkaline Phosphatase 132 H Creatine Kinase 58 Troponin I < 0.02 Total Protein 6.8 Albumin 3.5 ASSESSMENT/PLAN: Patient presents with vertigo sx; they improved with treatment but component of ataxia persisted so will obtain MRI and formal neuro consult to r/o any component of posterior infarct, etc. 1) Vertigo -Continue PRN Meclizine; if doesn't work can do valium PRN -Followup MRI, neurology consult. Appreciate expert opinion. -Consider OP vestibular rehab referral; can offer eply maneuver in AM -Consider PT referral for persistent ataxia. 2) HTN hx -Continue home meds; monitor 3) Elevated Alk Phos -Trend CMP; if persists check GGT. Mild elevation. 4) Afib -Controlled VR; continue home medications. Verify with pharmacy in AM. On xarelto longstanding so no additional DVT px needed. 5) Fibromyalgia -PRN followup OP
[2018-12-01] MEDS ORDERED: SODIUM CHLORIDE 1,000 ML IV SCH (01:30)
[2018-12-01] MEDS ORDERED: MECLIZINE HCL 12.5 MG TABLET ONE (01:48)
[2018-12-01] MEDS: MECLIZINE HCL 25 MG TABLET (FP) PO PRN ×2 (01:54→21:27)
[2018-12-01] MEDS ORDERED: diazePAM 2 MG TABLET PO ONE (02:59)
[2018-12-01] MEDS ORDERED: diazePAM 2 MG TABLET ONE (03:08)
[2018-12-01 06:06] LABS: CHOLESTEROL 163 mg/dL (50-200); HDL CHOLESTEROL 41 mg/dL (40-60); TRIGLYCERIDES 94 mg/dL (0-150)
[2018-12-01 07:55] VITALS: BMI 33.0
--- NOTE | 2018-12-01 10:53 | PN ---
Progress Note (short form) - Note Progress Note: pt seen/ examined chart reviewed feels better Vital Signs Temp 97.7 F 12/01/18 04:32 Pulse 65 12/01/18 04:32 Resp 18 12/01/18 04:32 BP 119/55 L 12/01/18 04:32 Pulse Ox 99 12/01/18 04:32 Intake & Output 11/30/18 11/30/18 12/01/18 11:59 23:59 11:59 Intake Total 100 Balance 100 Weight 130 lb 175 lb 0.4 oz Intake: IV 100 Normal Saline - 1,000 ml 100 @ 50 mls/hr IV [facility] Rx#:[id number] Other: Voiding Method Toilet Height 5 ft 1 in 5 ft 1 in Body Mass Index (BMI) 24.5 33.0 Weight Measurement Method Standing Scale Weight Measurement Method Estimated by Staff Active Medications Lisinopril (Prinivil) 20 mg PO DAILY [facility] Meclizine HCl (Antivert -) 25 mg PO TID PRN PRN Reason: VERTIGO Last Admin: 12/01/18 01:54 Dose: 25 mg Metoprolol Succinate (Toprol Xl -) 25 mg PO DAILY [facility] Ranitidine HCl (Zantac -) 150 mg PO BID [facility] Rivaroxaban (Xarelto) 20 mg PO DAILY [facility] CBC, BMP 11/30/18 21:06 11/30/18 21:06 ct head- ve Physical Exam GENERAL: Awake, alert, and fully oriented, in no acute distress. HEAD: Normal with no signs of trauma. EYES: Pupils equal, round and reactive to light, extraocular movements intact, sclera anicteric, conjunctiva clear. No lid lag. EARS, NOSE, THROAT: Ears normal, nares patent, oropharynx clear without exudates. Moist mucous membranes. NECK: Normal range of motion, supple without lymphadenopathy, JVD, or masses. LUNGS: Breath sounds equal, clear to auscultation bilaterally. No wheezes, and no crackles. No accessory muscle use. HEART: Regular rate and rhythm, normal S1 and S2 --systolic murmer + ABDOMEN: Soft, nontender, not distended, normoactive bowel sounds, no guarding, no rebound, no masses. No hepatomegaly or splenomegaly. MUSCULOSKELETAL: Normal range of motion at all joints. No bony deformities or tenderness. No CVA tenderness. UPPER EXTREMITIES: 2+ pulses, warm, well-perfused. No cyanosis. No clubbing. No peripheral edema. LOWER EXTREMITIES: 2+ pulses, warm, well-perfused. No calf tenderness. No peripheral edema. NEUROLOGICAL: Cranial nerves II-XII intact. Normal speech. Normal gait. PSYCHIATRIC: Cooperative. Good eye contact. Appropriate mood and affect. SKIN: Warm, dry, normal turgor, no rashes or lesions noted, normal capillary refill. A/P Dizziness/ vertigo s/p recent ablation for afib better continue present care [facility] mri brain neuro/ cardiology to follow will follow Problem List - Problems (1) Vertigo Code(s): R42 - DIZZINESS AND GIDDINESS (2) Paroxysmal atrial fibrillation Code(s): I48.0 - PAROXYSMAL ATRIAL FIBRILLATION (3) S/P ablation of atrial fibrillation Code(s): Z98.890 - OTHER SPECIFIED POSTPROCEDURAL STATES; Z86.79 - PERSONAL HISTORY OF OTHER DISEASES OF THE CIRCULATORY SYSTEM
--- NOTE | 2018-12-01 11:00 | EKG ---
Test Reason : Blood Pressure : / mmHG Vent. Rate : 065 BPM Atrial Rate : 065 BPM P-R Int : 170 ms QRS Dur : 082 ms QT Int : 450 ms P-R-T Axes : 052 -19 000 degrees QTc Int : 468 ms NORMAL SINUS RHYTHM LOW VOLTAGE QRS CANNOT RULE OUT ANTERIOR INFARCT (CITED ON OR BEFORE 09-SEP-2018) NONSPECIFIC T WAVE ABNORMALITY ABNORMAL ECG WHEN COMPARED WITH ECG OF 09-SEP-2018 21:07, NO SIGNIFICANT CHANGE WAS FOUND Confirmed by MARIELA BOWMAN MD ([id number]) on 12/01/2018 11:00:15 AM Referred By: Confirmed By:MARIELA BOWMAN MD
--- NOTE | 2018-12-01 13:02 | CON.NEURO ---
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: Other (Restless legs syndrome) Cardio/Vascular: Yes: HTN, Murmur (H/O Rheumatoid fever in childhood), Other ( rheumatic fever) Gastrointestinal: Yes: Diverticulitis ...LMP: 06/12/14 Psych: Yes: Anxiety Rheumatology: Yes: Fibromyalgia - Past Surgical History Past Surgical History: Yes: Appendectomy, Cholecystectomy, Tonsillectomy - Alcohol/Substance Use Hx Alcohol Use: No History of Substance Use: reports: None - Smoking History Smoking history: Never smoked Have you smoked in the past 12 months: No Aproximately how many cigarettes per day: 0 If you are a former smoker, when did you quit?: 1988 - Social History ADL: Independent Occupation: unemployed History of Recent Travel: No Home Medications - Allergies Allergies/Adverse Reactions: Allergies Allergy/AdvReac Type Severity Reaction Status Date / Time No Known Allergies Allergy Verified 11/30/18 20:15 - Home Medications Home Medications: Ambulatory Orders Rivaroxaban [Xarelto -] 20 mg PO DAILY #0 09/22/16 Metoprolol Succinate [Toprol Xl -] 25 mg PO DAILY #30 tab.sr.24h MDD 1 02/18/17 Ranitidine [Zantac -] 150 mg PO BID 07/13/18 Lisinopril 20 mg PO DAILY 09/09/18 Family Disease History - Family Disease History Family Disease History: Heart Disease: Mother ( [place]), [place]: Father (dying from prostate [place]) Physical Exam-Neuro Vital Signs: Vital Signs Temperature 98.2 F 12/01/18 11:00 Pulse Rate 65 12/01/18 11:00 Respiratory Rate 18 12/01/18 11:00 Blood Pressure 128/72 12/01/18 11:00 O2 Sat by Pulse Oximetry (%) 99 12/01/18 09:27 Labs: CBC, BMP 11/30/18 21:06 11/30/18 21:06 Assessment/Plan CC sudden onset vertigo HPI 58 year old female history of htn, fibromyalgia, atrial fibrillation ( recently had ablation three weeks ago at [facility] ). 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 Patient came to hospital and had ct head it was normal. Now she is 85 percent better. Patient denies any other focal neurological symptoms PAST MEDICAL HISTORY: Afib on xarelto, HTN, Fibromyalgia PAST SURGICAL HISTORY: No nsgy procedures Social History: No IVDU, no ETOH abuse NKDA FH,ROS,SH reviewed in chart HOME MEDICATIONS: Home Medications Medication Instructions Recorded Rivaroxaban [Xarelto -] 20 mg PO DAILY #0 09/22/16 Metoprolol Succinate [Toprol Xl -] 25 mg PO DAILY #30 tab.sr.24h MDD 1 02/18/17 Ranitidine [Zantac -] 150 mg PO BID 07/13/18 Lisinopril 20 mg PO DAILY 09/09/18 NEUROLOGICAL EXAMINATION Alert oriented x 3, speech is normal and no neck stiffness EOMI, pupils reactive no face asymmetry, mild nystagmus on right gaze seen Motor 5/5 all ext, FTN Heel to spears test is normal, no rigidity sensation isnormal ct head is normal mri of brain is pending Assessment/Plan severe vertigo , likely to be BPPV, and now better, there is no bleed and no atrial fibrillation Plan agree with mri of brain -PT and Zofran and meclizine prn I gave her my office number and would follow outpatient once mri of brain is normal Thanking you so much Lizz Holguin MD
--- NOTE | 2018-12-01 13:03 | PN ---
Progress Note (short form) - Note Progress Note: Coverage for Dr. Francesca Cedillo Chief Complaint: Events noted, notes reviewed, sudden onset of dizziness with associated nausea and vomiting, denies any chest pain or dyspnea, denies any palpitations History of Present Illness: Seen and examined on telemetry. Full consult dictated - Current Medication List Current Medications Lisinopril (Prinivil) 20 mg PO DAILY [facility] Meclizine HCl (Antivert -) 25 mg PO TID PRN PRN Reason: VERTIGO Last Admin: 12/01/18 01:54 Dose: 25 mg Metoprolol Succinate (Toprol Xl -) 25 mg PO DAILY [facility] Ranitidine HCl (Zantac -) 150 mg PO BID [facility] Rivaroxaban (Xarelto) 20 mg PO ACDIN [facility] Home Medications Medication Instructions Recorded Rivaroxaban [Xarelto -] 20 mg PO DAILY #0 09/22/16 Metoprolol Succinate [Toprol Xl -] 25 mg PO DAILY #30 tab.sr.24h MDD 1 02/18/17 Ranitidine [Zantac -] 150 mg PO BID 07/13/18 Lisinopril 20 mg PO DAILY 09/09/18 Review of Systems Cardiovascular: As noted above Respiratory: denies: Cough or Sputum Production Gastrointestinal: denies: Nausea, Vomiting, Diarrhea, Constipation or Abdominal Discomfort Musculoskeletal: No Symptoms Reported Endocrine: No Symptoms Reported - Objective Vital Signs: Last Vital Signs Temp Pulse Resp BP Pulse Ox 98.2 F 65 18 128/72 99 12/01/18 11:00 12/01/18 11:00 12/01/18 11:00 12/01/18 11:00 12/01/18 04:32 Intake & Output 11/28/18 11/29/18 11/30/18 12/01/18 23:59 23:59 23:59 23:59 Intake Total 100 Balance 100 Weight 130 lb 175 lb 0.4 oz Neck: Supple Negative JVD No Bruit Cardiovascular: S1 S2 Regular Rate and Rhythm Grade 2/6 TERRENCE Respiratory: Clear to A&P Bilaterally Gastrointestinal: Soft Benign Normal Bowel Sounds Ext: Negative Edema Labs: Troponin, BNP 11/30/18 21:06 Troponin I < 0.02 CBC, BMP 11/30/18 21:06 11/30/18 21:06 Hepatic Panel Total Bilirubin 0.5 mg/dL (0.2-1) 11/30/18 21:06 AST 13 U/L (15-37) L 11/30/18 21:06 ALT 19 U/L (13-61) 11/30/18 21:06 Alkaline Phosphatase 132 U/L (45-117) H 11/30/18 21:06 Albumin 3.5 g/dl (3.4-5.0) 11/30/18 21:06 Assessment/Plan ASSESSMENT: 1. Clinical presentation is consistent with benign positional vertigo 2. Paroxysmal atrial fibrillation post RFA- 2 [id number] score of 2 on DOAC's/ Xarelto 3. Probable diastolic LV dysfunction with clinical class 0 NYHA classification LV failure 4. HTN 5. History of fibromyalgia 6. History of anxiety PLAN: 1. Continue A/C with Xarelto 2. Continue Toprol XL 3. Continue Lisinopril 4. MRI of the brain as planned 5. If evidence of embolic disease is noted on above planned testing consider ILR for detection of asymptomatic recurrent atrial fibrillation Annabel Odell M.D.
--- NOTE | 2018-12-01 13:36 | CONS ---
DATE OF CONSULTATION: DATE OF DICTATION: 12/01/2018 Consultation requested by Loraine Baldwin MD, coverage for Jacobo Cedillo MD. HISTORY OF PRESENT ILLNESS: A 58-year-old female of descent with known history of paroxysmal atrial fibrillation, post radiofrequency ablation x2 for recurrent arrhythmia, CHADS2-VASc score of 2, probable diastolic left ventricular dysfunction with clinical class 0 [place] Heart Association classification left ventricular failure, hypertensive cardiovascular disease, fibromyalgia, anxiety disorder, who presented to with sudden onset of dizziness with associated nausea and vomiting. Patient did not report any preceding or associated palpitations. Patient reported symptom exacerbation with any type of movement. Patient currently reports almost complete resolution of above. Patient denies any history of chest discomfort. Patient denies any dyspnea, orthopnea, paroxysmal nocturnal dyspnea or peripheral edema. Patient denies any presyncope or syncope. Patient reports fatigue and tiredness. PAST MEDICAL HISTORY: Paroxysmal atrial fibrillation, post radiofrequency ablation x2 for recurrent arrhythmia, probable diastolic left ventricular dysfunction with clinical class 0 [place] Heart Association classification left ventricular failure, hypertensive cardiovascular disease, fibromyalgia, anxiety disorder, diverticular disease. PAST SURGICAL HISTORY: Tonsillectomy, cholecystectomy, appendectomy. SOCIAL HISTORY: Nonsmoker. FAMILY HISTORY: Positive coronary artery disease. ALLERGIES: None reported. MEDICAL THERAPY: Currently include lisinopril of 20 mg once a day, meclizine 25 mg 3 times a day as needed, Toprol XL of 25 mg once a day, Zantac 150 mg twice a day, Xarelto 20 mg once daily. MEDICAL THERAPY: At home included Xarelto 20 mg once daily, Toprol XL of 25 mg once daily, Zantac 150 mg twice daily, and lisinopril of 20 mg once daily. REVIEW OF SYSTEMS: Head and Neck: Denies headache, photophobia, blurring of vision. Respiratory: No cough or sputum production. Cardiovascular: As noted above. Gastrointestinal: Reported nausea, vomiting. Denied any abdominal discomfort, diarrhea or constipation. Genitourinary: No symptoms reported. Musculoskeletal: History of fibromyalgia. PHYSICAL EXAMINATION: Vital Signs: Blood pressure 128/78 mmHg, pulse rate is 65 beats per minute. Head and Neck: Pupils equally reactive to light and accommodation. Extraocular muscles are intact. Anicteric sclerae. Negative JVD. No bruit appreciated. Chest: Clear to auscultation and percussion. Cardiovascular: S1, S2, regular. A grade 1-2 over 6 systolic ejection murmur. No clicks or gallops. Abdomen: Soft. Benign. Normoactive bowel sounds. Extremities: Negative edema. Intact distal pulses. No calf tenderness. Electrocardiogram revealed sinus rhythm, poor R-wave progression with nonspecific T-wave abnormality. CBC revealed a white cell count 8.8, hemoglobin 12.1, platelet count 289. Basic metabolic profile revealed a sodium 141, potassium 4.2, BUN 10, creatinine 0.6, glucose 88 with normal liver profile. ASSESSMENT: 1. Clinical presentation consistent with benign positional vertigo. 2. Paroxysmal atrial fibrillation, post radiofrequency ablation x2. CHADS2-VASc score of 2 on Xarelto therapy. 3. Probable diastolic left ventricular dysfunction with clinical class 0 [place] Heart [employer] classification left ventricular failure. 4. Hypertensive cardiovascular disease. 5. History of fibromyalgia. 6. History of anxiety disorder. RECOMMENDATIONS: 1. Continuation of anticoagulation therapy with Xarelto. 2. Continuation of Toprol XL. 3. Continuation of lisinopril therapy. 4. of the brain as planned. 5. If evidence of embolic disease is noted on the above-planned testing, consider implantable loop recorder for detection of asymptomatic, recurrent atrial fibrillation. Thank you for the kind referral. DEREJE KRISHNAMURTHY M.D. [id number]
[2018-12-01] MEDS ORDERED: RIVAROXABAN 20 MG TABLET PO SCH (16:30)
[2018-12-01] MEDS ORDERED: PT OWN MED DRAWER 7, Y5N ONE (17:51)
[2018-12-01] MEDS: RANITIDINE HCL 150 MG TABLET (FP) PO SCH (21:27)
[2018-12-02 07:20] LABS: HEMATOCRIT 37.1 % (32.4-45.2); HEMOGLOBIN 12.3 GM/dL (10.7-15.3); MCH 28.5 pg (25.7-33.7); MCHC 33.1 g/dl (32.0-36.0); MEAN CELL VOLUME 86.1 fl (80-96); MEAN PLT VOLUME 8.2 fl (7.5-11.1); PLATELET COUNT 274 K/MM3 (134-434); RBC 4.31 M/mm3 (3.60-5.2); RDW 12.8 % (11.6-15.6); WHITE BLOOD COUNT 6.1 K/mm3 (4.0-10.0)
--- NOTE | 2018-12-02 07:21 | PN ---
Progress Note (short form) - Note Progress Note: Coverage for Dr. Francesca Cedillo Chief Complaint: Events noted, notes reviewed, dizziness resolved, denies any chest pain or dyspnea, denies any palpitations History of Present Illness: Seen and examined on telemetry. Events noted, notes reviewed, dizziness resolved , denies any chest pain or dyspnea, denies any palpitations MRI of the brain results noted no evidence of acute pathology - Current Medication List Current Medications Lisinopril (Prinivil) 20 mg PO DAILY [facility] Meclizine HCl (Antivert -) 25 mg PO TID PRN PRN Reason: VERTIGO Last Admin: 12/01/18 21:27 Dose: 25 mg Metoprolol Succinate (Toprol Xl -) 25 mg PO DAILY [facility] Ranitidine HCl (Zantac -) 150 mg PO BID [facility] Last Admin: 12/01/18 21:27 Dose: 150 mg Rivaroxaban (Xarelto) 20 mg PO ACDIN [facility] Last Admin: 12/01/18 18:04 Dose: 20 mg Review of Systems Cardiovascular: As noted above Respiratory: denies: Cough or Sputum Production Gastrointestinal: denies: Nausea, Vomiting, Diarrhea, Constipation or Abdominal Discomfort Musculoskeletal: No Symptoms Reported Endocrine: No Symptoms Reported - Objective Vital Signs: Last Vital Signs Temp Pulse Resp BP Pulse Ox 98.2 F 60 18 136/75 99 12/02/18 06:00 12/02/18 06:00 12/02/18 06:00 12/02/18 06:00 12/02/18 01:00 Intake & Output 11/29/18 11/30/18 12/01/18 12/02/18 23:59 23:59 23:59 23:59 Intake Total 730 150 Balance 730 150 Weight 130 lb 175 lb 0.4 oz Neck: Supple Negative JVD No Bruit Cardiovascular: S1 S2 Regular Rate and Rhythm Grade 2/6 TERRENCE Respiratory: Clear to A&P Bilaterally Gastrointestinal: Soft Benign Normal Bowel Sounds Ext: Negative Edema Labs: CBC, BMP 12/02/18 06:00 12/02/18 06:00 Hepatic Panel Total Bilirubin 0.6 mg/dL (0.2-1) 12/02/18 06:00 AST 9 U/L (15-37) L 12/02/18 06:00 ALT 16 U/L (13-61) 12/02/18 06:00 Alkaline Phosphatase 121 U/L (45-117) H 12/02/18 06:00 Albumin 2.9 g/dl (3.4-5.0) L 12/02/18 06:00 Assessment/Plan ASSESSMENT: 1. Clinical presentation is consistent with benign positional vertigo, resolved 2. Paroxysmal atrial fibrillation post RFA- twice [id number] score of 2 on DOAC 's/Xarelto, currently in sinus rhythm 3. Probable diastolic LV dysfunction with clinical class 0 NYHA classification LV failure 4. HTN 5. History of fibromyalgia 6. History of anxiety disorder PLAN: 1. Continue A/C with Xarelto 2. Continue Toprol XL 3. Continue Lisinopril 4. No further cardiovascular intervention is indicated at this point, patient can be D/C home from the cardiovascular point of view and F/U as outpatient with Dr. Francesca Cedillo Thank you Annabel Odell M.D.
[2018-12-02 07:40] LABS: ALBUMIN 2.9 g/dl (3.4-5.0); BILIRUBIN,TOTAL 0.6 mg/dL (0.2-1); CALCIUM 8.2 mg/dL (8.5-10.1); CREATININE 0.7 mg/dL (0.55-1.3); MAGNESIUM 2.2 mg/dL (1.8-2.4); POTASSIUM 4.6 mmol/L (3.5-5.1); TOT PROT 5.8 g/dl (6.4-8.2)
[2018-12-02] MEDS: RANITIDINE HCL 150 MG TABLET (FP) PO SCH (09:25)
[2018-12-02 09:59] VITALS: BP 138/80; PULSE 62; TEMP 98
[2018-12-02] MEDS ORDERED: metoPROLOL SUCCINATE 25 MG TAB.SR.24H (FP) PO SCH (10:00)
[2018-12-02] MEDS ORDERED: LISINOPRIL 10 MG TABLET (FP) PO SCH (10:00)
--- NOTE | 2018-12-02 10:31 | DS ---
Physical Examination Vital Signs: Vital Signs Temperature 98 F 12/02/18 09:00 Pulse Rate 62 12/02/18 09:00 Respiratory Rate 18 12/02/18 09:00 Blood Pressure 138/80 12/02/18 09:00 O2 Sat by Pulse Oximetry (%) 100 12/02/18 09:00 Findings/Remarks: feels much better no complains Constitutional: Yes: No Distress, Calm Eyes: Yes: Conjunctiva Clear, PERRL HENT: Yes: WNL Neck: Yes: Supple Cardiovascular: Yes: Regular Rate and Rhythm Respiratory: Yes: CTA Bilaterally Gastrointestinal: Yes: Normal Bowel Sounds, Soft Edema: No Neurological: Yes: WNL, Alert Psychiatric: Yes: Alert Labs: CBC, BMP 12/02/18 06:00 12/02/18 06:00 Discharge Summary Reason For Visit: VERTIGO Current Active Problems Vertigo (Acute) Hospital Course: admitted for dizziness/ ataxia recent ablation for afib mri - ve cardiology/ neurology followed better stable for d/c home f/u in office 2 weeks meds reconcilled meclizine prescribed Likely BPV Discussed with pt in detail pt in agreement discussed with nursing staff also Condition: Fair - Instructions Disposition: HOME - Home Medications Comprehensive Discharge Medication List: Ambulatory Orders Rivaroxaban [Xarelto -] 20 mg PO DAILY #0 09/22/16 Metoprolol Succinate [Toprol XL -] 25 mg PO DAILY #30 tab.sr.24h MDD 1 02/18/17 Ranitidine [Zantac -] 150 mg PO BID 07/13/18 Lisinopril 20 mg PO DAILY 09/09/18 Meclizine HCl [Antivert -] 25 mg PO TID PRN 10 Days #30 tablet 12/02/18
== END 2018-12-02 15:19 | disposition home or self-care (01) ==
LOC: JER 19:48 → JERBED 12-01 00:36 → J4S 12-01 04:26
PROVIDERS: ADMIT Internal Medicine; ATTEND Internal Medicine
PROC: 3E033GC Introduction of Other Therapeutic Substance into Peripheral Vein, Percutaneous Approach (ICD-10-PCS; principal; 2018-12-01)
DX: R42 Dizziness and giddiness (principal); R74.8 Abnormal levels of other serum enzymes; I48.0 Paroxysmal atrial fibrillation; M79.7 Fibromyalgia; I10 Essential (primary) hypertension; K21.9 Gastro-esophageal reflux disease without esophagitis; Z79.01 Long term (current) use of anticoagulants; Z98.890 Other specified postprocedural states
CPT/HCPCS: 36415; 70450-TC; 70551-TC; 80053; 80061; 82550; 82607; 83036; 83721; 83735; 84443; 84484; 85027; 86593; 93005; 93010; 96361; 96374; 99285-25; G0378; J7030

== ENCOUNTER 2019-05-16 00:17 | Observation (INO) | payer OTHER ==
--- NOTE | 2019-05-16 01:59 | PDOC ---
Attending Attestation - Resident Resident Name: TarunLeon - ED Attending Attestation I have performed the following: I have examined & evaluated the patient, The case was reviewed & discussed with the resident, I agree w/resident's findings & plan - HPI HPI: 05/16/19 06:16 see resident hpi - Physicial Exam PE: 05/16/19 06:16 agree with resident exam - Medical Decision Making 05/16/19 06:16 59-year-old female with an episode of elevated blood pressure and chest pressure EKG shows inferior and anterior T wave abnormalities We will admit to telemetry observation serial enzymes Patient currently chest pain-free
[2019-05-16 02:06] LABS: EOS % 1.7 % (0-4.5); HEMATOCRIT 38.8 % (32.4-45.2); HEMOGLOBIN 12.6 GM/dL (10.7-15.3); LYMPH % 34.8 % (8-40); MCH 28.4 pg (25.7-33.7); MCHC 32.6 g/dl (32.0-36.0); MEAN CELL VOLUME 87.2 fl (80-96); MEAN PLT VOLUME 8.2 fl (7.5-11.1); MONO % 7.6 % (3.8-10.2); NEUT % 54.9 % (42.8-82.8); PLATELET COUNT 259 K/MM3 (134-434); RBC 4.45 M/mm3 (3.60-5.2); RDW 13.7 % (11.6-15.6); WHITE BLOOD COUNT 8.3 K/mm3 (4.0-10.0)
[2019-05-16 02:53] LABS: ALBUMIN 3.4 g/dl (3.4-5.0); ALK PHOS 131 U/L (45-117); ANION GAP 5 MMOL/L (8-16); BILIRUBIN,TOTAL 0.4 mg/dL (0.2-1); BLOOD UREA NITROGEN 14.6 mg/dL (7-18); CALCIUM 8.9 mg/dL (8.5-10.1); CHLORIDE 109 mmol/L (98-107); CO2 29 mmol/L (21-32); CREATININE 0.6 mg/dL (0.55-1.3); GLUCOSE,RANDOM 85 mg/dL (74-106); N-TERMINAL BNP 116.2 pg/ml (5-125); POTASSIUM 4.8 mmol/L (3.5-5.1); SGOT/AST 21 U/L (15-37); SGPT/ALT 20 U/L (13-61); SODIUM 143 mmol/L (136-145); TOT PROT 6.8 g/dl (6.4-8.2)
--- NOTE | 2019-05-16 02:53 | PDOC ---
History of Present Illness - General Chief Complaint: Blood Pressure Problem Stated Complaint: BLOOD PRESSURE PROBLEM Time Seen by Provider: 05/16/19 01:35 History Source: Patient Exam Limitations: No Limitations - History of Present Illness Initial Comments: 05/16/19 06:17 HPI: 59F PMH HTN, AFIB on xarelto c/o elevated home BP measurement and associated substernal chest pressure. BP measured at 170/102. Baseline SBP 140s. Pt states she always has chest pressure when her BP is elevated. Took 2 lisinopril, per direction of "a doctor" when BP high. Currently asymptomatic. Denies palpations. Denies acute onset lightheadedness, dizziness, sob, numbness, tingling. PSH: gallbladder Past History - Past Medical History Allergies/Adverse Reactions: Allergies Allergy/AdvReac Type Severity Reaction Status Date / Time No Known Allergies Allergy Verified 05/16/19 00:43 Home Medications: Ambulatory Orders Rivaroxaban [Xarelto -] 20 mg PO DAILY #0 09/22/16 Lisinopril/Hydrochlorothiazide [Lisinopril-Hctz 20-12.5 mg Tab] 1 each PO DAILY #60 tablet 05/16/19 Metoprolol Succinate [Toprol XL -] 50 mg PO DAILY MDD 1 05/16/19 Anemia: No Asthma: No Cancer: No Cardiac Disorders: Yes (murmer, atrial fibrillation, ABLATION) CVA: Yes (tia ?) COPD: No CHF: No Dementia: No Diabetes: No GI Disorders: Yes (DIVERTICULOSIS; POLYP STOMACH; REFLUX; H/H) Disorders: No HTN: Yes Hypercholesterolemia: No Liver Disease: No Seizures: No Thyroid Disease: No - Surgical History Abdominal Surgery: Yes Appendectomy: Yes Cardiac Surgery: No Cholecystectomy: Yes GI Surgery: Yes (INTESTINAL RESECTION) Lung Surgery: No Neurologic Surgery: No Orthopedic Surgery: No - Immunization History Immunization Up to Date: Yes - Psycho Social/Smoking Cessation Hx Smoking Status: No Smoking History: Never smoked Have you smoked in the past 12 months: No Number of Cigarettes Smoked Daily: 0 If you are a former smoker, when did you quit?: 1988 Information on smoking cessation initiated: No 'Breaking Loose' booklet given: 05/12/12 Hx Alcohol Use: No Drug/Substance Use Hx: No Substance Use Type: None Hx Substance Use Treatment: No Review of Systems - Review of Systems Able to Perform ROS?: Yes Comments:: 05/16/19 06:17 ROS: CONSTITUTIONAL: Denies F / C HEENT: Denies headache, lightheadedness, dizziness, changes in vision / hearing , diplopia, blurry vision. Denies sore throat, rhinorrhea. RESP: Endorses months of SOB, no change. CARD: Endorses chest pressure. Denies palpitations GI: Denies N / V / D, inability to tolerate PO : Denies dysuria, frequency SKIN: Denies rashes NEURO: Denies numbness, tingling, weakness Is the patient limited British proficient: No *Physical Exam - Vital Signs Last Vital Signs Temp Pulse Resp BP Pulse Ox 97.8 F 69 20 151/88 97 05/16/19 00:43 05/16/19 00:43 05/16/19 00:43 05/16/19 00:43 05/16/19 00:43 - Physical Exam Comments: 05/16/19 06:17 PE: GEN: Well appearing, NAD, comfortable. AAOx3 HEENT: NC/AT, EOMI, PERRLA. No facial asymmetry. Moist mucous membranes. Normal voice. Supple neck w/ FROM. CV: S1/S2, RRR, no m/r/g LUNG: CTAB, no wheezes, crackles, rales, rhonchi. GI: soft, ndnt, +BS, no guarding, no rebound. EXTREMITIES: 1+ pitting LE edema. No obvious deformities of all extremities. SKIN: warm, dry, normal turgor PSYCH: normal mood and affect NEURO: Moving all extremities well, ambulating w/ normal gait Heart Score/ECG Review - History History: Moderately suspicious - Electrocardiogram EKG: Non specific repolarization disturbance - Age Age: 45-65 - Risk Factors Risk Factors Heart Score: Yes Hx Hypertension Based on the list above the patient has:: 1-2 risk factors - Troponin Troponin: </= normal limit - Score Heart Score - Total: 4 ED Treatment Course - LABORATORY CBC & Chemistry Diagram: 05/16/19 01:55 05/16/19 01:55 - ADDITIONAL ORDERS Additional order review: 05/16/19 01:55 RBC 4.45 MCV 87.2 MCHC 32.6 RDW 13.7 MPV 8.2 Neutrophils % 54.9 Lymphocytes % 34.8 Monocytes % 7.6 Eosinophils % 1.7 Basophils % 1.0 - RADIOLOGY Radiology Studies Ordered: Category Date Time Status CXRPORT [CHEST X-RAY PORTABLE*] [RAD] Stat Radiology 05/16/19 01:54 Ordered Medical Decision Making - Medical Decision Making 05/16/19 02:45 MDM: 59F c/o elevated home BP w/ associated chest pressure. Currently asymptomatic. - CBC, CMP, Cardiac, BNP - EKG - CXR 05/16/19 03:32 EKG HR 70 AL 174 QRS 86 QTc 460 NSR, TWI V2 AND V3 UNCHANGED FROM PRIOR EKG initial trop neg rpt 2nd trop Obs-tele HEART score = 4 endorsed to COMMUNICATION MANAGER, Tele-obs under Dr. Pinedo Discharge - Discharge Information Problems reviewed: Yes Clinical Impression/Diagnosis: Elevated blood pressure reading Condition: Stable - Admission Yes - Follow up/Referral - Patient Discharge Instructions - Post Discharge Activity
[2019-05-16 03:30] LABS: PHOSPHOROUS 3.2 mg/dL (2.5-4.9)
[2019-05-16 05:08] LABS: MAGNESIUM 2.4 mg/dL (1.8-2.4)
--- NOTE | 2019-05-16 05:38 | HP ---
Admitting History and Physical - Primary Care Physician PCP: Adrianna Willams - Admission Chief Complaint: Chest Pain, Elevated BP History of Present Illness: This is a 59 y/o woman with a PMHx of HTN, Murmur (Rhuematic Fever, childhood), Diverticulitis, Fibromyalgia, Anxiety. Who presents to the ED with chest pain and elevated BP. Patient reports having elevated BP readings at home, states she took a second dose of Lisinopril last night. She reports having midsternal chest pressure with "squeezing" feeling to her left breast- now resolved. Patient denies fever, chills, SOB, dizziness, palpitations, AP, N/V/D, constipation, dysuria Patient reports having a recent Echo this year. History Source: Patient Limitations to Obtaining History: No Limitations - Past Medical History DIRECTOR DRUG SAFETY: Yes: Other (Restless legs syndrome) Cardiovascular: Yes: HTN, Murmur (H/O Rheumatoid fever in childhood), Other ( rheumatic fever) Gastrointestinal: Yes: Diverticulitis ...LMP: 06/12/14 Psych: Yes: Anxiety Rheumatology: Yes: Fibromyalgia - Past Surgical History Past Surgical History: Yes: Appendectomy, Cholecystectomy, Tonsillectomy - Smoking History Smoking history: Former smoker Have you smoked in the past 12 months: No Aproximately how many cigarettes per day: 0 If you are a former smoker, when did you quit?: 1988 - Alcohol/Substance Use Hx Alcohol Use: No History of Substance Use: reports: None - Social History ADL: Independent Occupation: unemployed History of Recent Travel: No Home Medications - Allergies Allergies/Adverse Reactions: Allergies Allergy/AdvReac Type Severity Reaction Status Date / Time No Known Allergies Allergy Verified 05/16/19 00:43 - Home Medications Home Medications: Ambulatory Orders Rivaroxaban [Xarelto -] 20 mg PO DAILY #0 09/22/16 Lisinopril 20 mg PO DAILY 09/09/18 Metoprolol Succinate [Toprol XL -] 50 mg PO DAILY MDD 1 05/16/19 Family Medical History Family Hx Cancer: Father (Prostate- ) Family Hx Cardiac Disorders: Mother (HI ) Review of Systems - Review of Systems Constitutional: reports: No Symptoms Eyes: reports: No Symptoms HENT: reports: No Symptoms Neck: reports: No Symptoms Cardiovascular: reports: Chest Pain Respiratory: reports: No Symptoms Gastrointestinal: reports: No Symptoms Genitourinary: reports: No Symptoms Breasts: reports: No Symptoms Reported Musculoskeletal: reports: No Symptoms Integumentary: reports: No Symptoms Neurological: reports: No Symptoms Endocrine: reports: No Symptoms Hematology/Lymphatic: reports: No Symptoms Psychiatric: reports: No Symptoms Pain Intensity: 6 Physical Examination Vital Signs: Vital Signs Temperature 97.8 F 05/16/19 00:43 Pulse Rate 64 05/16/19 05:15 Respiratory Rate 18 05/16/19 05:15 Blood Pressure 139/72 05/16/19 05:15 O2 Sat by Pulse Oximetry (%) 99 05/16/19 05:15 Constitutional: Yes: Well Nourished, No Distress, Calm, Obese Eyes: Yes: WNL, Conjunctiva Clear, EOM Intact, PERRL HENT: Yes: WNL, Atraumatic, Normocephalic Neck: Yes: WNL, Supple, Trachea Midline Cardiovascular: Yes: WNL, Regular Rate and Rhythm, S1, S2, Other (CP reproducible on palpation) Respiratory: Yes: WNL, Regular, CTA Bilaterally Gastrointestinal: Yes: WNL, Normal Bowel Sounds, Soft, Abdomen, Obese Renal/: Yes: WNL Breast(s): Yes: WNL Musculoskeletal: Yes: WNL Extremities: Yes: WNL Edema: Yes Edema: LLE: Trace, RLE: Trace Peripheral Pulses WNL: Yes Neurological: Yes: WNL, Alert, Oriented ...Motor Strength: WNL Psychiatric: Yes: WNL, Alert, Oriented Labs: CBC, BMP 05/16/19 01:55 05/16/19 01:55 Laboratory Results - last 24 hr 05/16/19 05/16/19 05/16/19 01:55 01:55 01:55 WBC 8.3 RBC 4.45 Hgb 12.6 Hct 38.8 MCV 87.2 MCH 28.4 MCHC 32.6 RDW 13.7 Plt Count 259 MPV 8.2 Absolute Neuts (auto) 4.5 Neutrophils % 54.9 Lymphocytes % 34.8 Monocytes % 7.6 Eosinophils % 1.7 Basophils % 1.0 Nucleated RBC % 0 Sodium 143 Cancelled Potassium 4.8 Cancelled Chloride 109 H Cancelled Carbon Dioxide 29 Cancelled Anion Gap 5 L Cancelled BUN 14.6 Cancelled Creatinine 0.6 Cancelled Est GFR (CKD-EPI)AfAm 116.45 Cancelled Est GFR (CKD-EPI)NonAf 100.47 Cancelled Random Glucose 85 Cancelled Calcium 8.9 Cancelled Phosphorus 3.2 Cancelled Magnesium 2.4 Cancelled Total Bilirubin 0.4 Cancelled AST 21 Cancelled ALT 20 Cancelled Alkaline Phosphatase 131 H Cancelled Creatine Kinase 101 Troponin I < 0.02 B-Natriuretic Peptide 116.2 Cancelled Total Protein 6.8 Cancelled Albumin 3.4 Cancelled 05/16/19 04:44 WBC RBC Hgb Hct MCV MCH MCHC RDW Plt Count MPV Absolute Neuts (auto) Neutrophils % Lymphocytes % Monocytes % Eosinophils % Basophils % Nucleated RBC % Sodium Potassium Chloride Carbon Dioxide Anion Gap BUN Creatinine Est GFR (CKD-EPI)AfAm Est GFR (CKD-EPI)NonAf Random Glucose Calcium Phosphorus Magnesium Total Bilirubin AST ALT Alkaline Phosphatase Creatine Kinase Troponin I < 0.02 B-Natriuretic Peptide Total Protein Albumin Intake & Output 05/13/19 05/14/19 05/15/19 05/16/19 23:59 23:59 23:59 23:59 Weight 81.647 kg Imaging - Results Chest X-ray: Image Reviewed EKG: Image Reviewed Problem List - Problems (1) Atrial fibrillation Code(s): I48.91 - UNSPECIFIED ATRIAL FIBRILLATION Qualifiers: (2) Chest pain Code(s): R07.9 - CHEST PAIN, UNSPECIFIED (3) Hypertension Code(s): I10 - ESSENTIAL (PRIMARY) HYPERTENSION (4) S/P ablation of atrial fibrillation Code(s): Z98.890 - OTHER SPECIFIED POSTPROCEDURAL STATES; Z86.79 - PERSONAL HISTORY OF OTHER DISEASES OF THE CIRCULATORY SYSTEM Assessment/Plan This is a 59 y/o woman placed in Telemetry Observation for Chest Pain r/o ACS fir further evaluation of their emergent condition. Plan: Tele Observation HEART Score 4 WILLEM 1 Serial Enzymes Appreciate Cardiology consult Pt reports having recent Echo- nl,will defer to Cardiology Lipid Panel Will give Asa now, then continue Chest Xray image- reviewed EKG-NSR possible anterior infarct, age undetermined no change compared to prior study FEN- PO fluids as tolerated, replete lytes prn, Low Na Diet DVT ppx- OOB, SCDs, consider AC if LOS > 48 hrs Dispo: Observation Visit type - Emergency Visit Emergency Visit: Yes ED Registration Date: 05/16/19 Care time: The patient presented to the Emergency Department on the above date and was hospitalized for further evaluation of their emergent condition. - New Patient This patient is new to me today: Yes Date on this admission: 05/16/19 - Critical Care Critical Care patient: No
[2019-05-16] MEDS ORDERED: ASPIRIN 81 MG CHEWABLE TABLETS PO ONE (05:52)
[2019-05-16] MEDS ORDERED: ASPIRIN 81 MG CHEWABLE TABLETS ONE (05:59)
[2019-05-16 09:09] VITALS: BMI 33.0
[2019-05-16] MEDS ORDERED: LISINOPRIL 10 MG TABLET (FP) PO SCH (10:00)
[2019-05-16] MEDS ORDERED: metoPROLOL SUCCINATE 25 MG TAB.SR.24H (FP) PO SCH (10:00)
[2019-05-16 10:58] LABS: CHOLESTEROL 167 mg/dL (50-200); HDL CHOLESTEROL 46 mg/dL (40-60); LDL CHOLESTEROL (ONLY SJRH) 103 mg/dL (5-100); TRIGLYCERIDES 104 mg/dL (0-150)
--- NOTE | 2019-05-16 11:58 | PN ---
Progress Note (short form) - Note Progress Note: events noted no chest pain she has been having issues with uncontrolled BP Vital Signs - 24 hr 05/16/19 05/16/19 05/16/19 00:43 01:12 03:42 Temperature 97.8 F Pulse Rate 69 Pulse Rate [ 66 Right Radial] Respiratory 20 18 Rate Blood Pressure 151/88 Blood Pressure 141/76 [Left Arm] O2 Sat by Pulse 97 99 99 Oximetry (%) 05/16/19 05/16/19 05/16/19 05:15 07:25 09:00 Temperature 97.5 F L Pulse Rate Pulse Rate [ 64 63 Right Radial] Respiratory 18 20 17 Rate Blood Pressure Blood Pressure 139/72 142/77 [Left Arm] O2 Sat by Pulse 99 96 99 Oximetry (%) 05/16/19 09:06 Temperature 98 F Pulse Rate 68 Pulse Rate [ Right Radial] Respiratory 17 Rate Blood Pressure 135/86 Blood Pressure [Left Arm] O2 Sat by Pulse 99 Oximetry (%) Current Medications Generic Name Dose Route Start Last Admin Trade Name Freq PRN Reason Stop Dose Admin Aspirin 81 mg 05/17/19 10:00 Asa - PO DAILY [facility] Hydrochlorothiazide 12.5 mg 05/16/19 12:30 05/16/19 12:55 Hctz - PO 12.5 mg DAILY LISA Administration Lisinopril 20 mg 05/16/19 10:00 05/16/19 09:16 Prinivil PO 20 mg DAILY LISA Administration Metoprolol Succinate 50 mg 05/16/19 10:00 05/16/19 09:16 Toprol Xl - PO 50 mg DAILY LISA Administration Rivaroxaban 20 mg 05/16/19 18:00 Xarelto PO 1800 LISA Laboratory Results - last 24 hr 05/16/19 05/16/19 05/16/19 01:55 01:55 01:55 WBC 8.3 RBC 4.45 Hgb 12.6 Hct 38.8 MCV 87.2 MCH 28.4 MCHC 32.6 RDW 13.7 Plt Count 259 MPV 8.2 Absolute Neuts (auto) 4.5 Neutrophils % 54.9 Lymphocytes % 34.8 Monocytes % 7.6 Eosinophils % 1.7 Basophils % 1.0 Nucleated RBC % 0 Sodium 143 Cancelled Potassium 4.8 Cancelled Chloride 109 H Cancelled Carbon Dioxide 29 Cancelled Anion Gap 5 L Cancelled BUN 14.6 Cancelled Creatinine 0.6 Cancelled Est GFR (CKD-EPI)AfAm 116.45 Cancelled Est GFR (CKD-EPI)NonAf 100.47 Cancelled Random Glucose 85 Cancelled Calcium 8.9 Cancelled Phosphorus 3.2 Cancelled Magnesium 2.4 Cancelled Total Bilirubin 0.4 Cancelled AST 21 Cancelled ALT 20 Cancelled Alkaline Phosphatase 131 H Cancelled Creatine Kinase 101 Troponin I < 0.02 B-Natriuretic Peptide 116.2 Cancelled Total Protein 6.8 Cancelled Albumin 3.4 Cancelled Triglycerides Cholesterol Total LDL Cholesterol HDL Cholesterol 05/16/19 05/16/19 04:44 09:36 WBC RBC Hgb Hct MCV MCH MCHC RDW Plt Count MPV Absolute Neuts (auto) Neutrophils % Lymphocytes % Monocytes % Eosinophils % Basophils % Nucleated RBC % Sodium Potassium Chloride Carbon Dioxide Anion Gap BUN Creatinine Est GFR (CKD-EPI)AfAm Est GFR (CKD-EPI)NonAf Random Glucose Calcium Phosphorus Magnesium Total Bilirubin AST ALT Alkaline Phosphatase Creatine Kinase Troponin I < 0.02 < 0.02 B-Natriuretic Peptide Total Protein Albumin Triglycerides 104 Cholesterol 167 Total LDL Cholesterol 103 H HDL Cholesterol 46 S1 S2 RRR Lungs clear Abd- soft, NT No edema PLAN Add HCTZ low dose continue with meds dc planning Problem List - Problems (1) Elevated blood pressure reading Code(s): R03.0 - ELEVATED BLOOD-PRESSURE READING, W/O DIAGNOSIS OF HTN (2) Atrial fibrillation Code(s): I48.91 - UNSPECIFIED ATRIAL FIBRILLATION Qualifiers: (3) Chest pain Code(s): R07.9 - CHEST PAIN, UNSPECIFIED
--- NOTE | 2019-05-16 12:05 | EKG ---
Test Reason : Blood Pressure : / mmHG Vent. Rate : 070 BPM Atrial Rate : 070 BPM P-R Int : 174 ms QRS Dur : 086 ms QT Int : 426 ms P-R-T Axes : 033 -18 012 degrees QTc Int : 460 ms NORMAL SINUS RHYTHM POSSIBLE ANTERIOR INFARCT (CITED ON OR BEFORE 09-SEP-2018) ABNORMAL ECG WHEN COMPARED WITH ECG OF 30-NOV-2018 21:26, NO SIGNIFICANT CHANGE WAS FOUND Confirmed by VIDAL RAPP, MESHA ([id number]) on 05/16/2019 12:05:13 PM Referred By: Confirmed By:MESHA DRAKE MD
[2019-05-16] MEDS ORDERED: HYDROCHLOROTHIAZIDE 12.5 MG CAPSULE (FP) PO SCH (12:30)
--- NOTE | 2019-05-16 12:30 | CON.CARD ---
Consult Consult Specialty:: cardiology Reason for Consultation:: uncontrolled HTN - History of Present Illness Chief Complaint: Ot A&Ox3; anxious (worried that her BP was so high prior to admission); no chest pain. History of Present Illness: 59-year-old female with an episode of elevated blood pressure, PAF (on metoprolol and rivaroxaban), overweight, hyperlipidemia, anxiety, and chest pressure Pt became anxious when she found her BP was elevated, and took an extra dose of lisinopril. 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: Other (Restless legs syndrome) Cardio/Vascular: Yes: HTN, Murmur (H/O Rheumatoid fever in childhood), Other ( rheumatic fever) Gastrointestinal: Yes: Diverticulitis Renal/: No: Renal Failure Reproductive: Yes: Postmenopausal ...LMP: 06/12/14 ...: No Heme/Onc: No: Anemia Psych: Yes: Anxiety Rheumatology: Yes: Fibromyalgia - Past Surgical History Past Surgical History: Yes: Appendectomy, Cholecystectomy, Tonsillectomy - Alcohol/Substance Use Hx Alcohol Use: No History of Substance Use: reports: None - Smoking History Smoking history: Former smoker Have you smoked in the past 12 months: No Aproximately how many cigarettes per day: 0 If you are a former smoker, when did you quit?: 1988 - Social History ADL: Independent Occupation: unemployed History of Recent Travel: No Home Medications - Allergies Allergies/Adverse Reactions: Allergies Allergy/AdvReac Type Severity Reaction Status Date / Time No Known Allergies Allergy Verified 05/16/19 00:43 - Home Medications Home Medications: Ambulatory Orders Rivaroxaban [Xarelto -] 20 mg PO DAILY #0 09/22/16 Lisinopril 20 mg PO DAILY 09/09/18 Metoprolol Succinate [Toprol XL -] 50 mg PO DAILY MDD 1 05/16/19 Family Medical History Family History: Denies Review of Systems - Review of Systems Constitutional: reports: No Symptoms Eyes: reports: No Symptoms HENT: reports: No Symptoms Neck: reports: No Symptoms Cardiovascular: reports: Chest Pain (atypical; sharp; lasting seconds; TNI negative). denies: Shortness of Breath Respiratory: reports: No Symptoms Gastrointestinal: reports: No Symptoms Genitourinary: reports: No Symptoms - Risk Factors Known Risk Factors: Yes: Age, Hypercholesterolemia, Hypertension Vital Signs: Vital Signs Temperature 98 F 05/16/19 09:06 Pulse Rate 68 05/16/19 09:06 Respiratory Rate 17 05/16/19 09:06 Blood Pressure 135/86 05/16/19 09:06 O2 Sat by Pulse Oximetry (%) 99 05/16/19 09:06 Constitutional: Yes: Well Nourished, Anxious Eyes: Yes: WNL HENT: Yes: WNL Neck: Yes: WNL Respiratory: Yes: WNL Gastrointestinal: Yes: WNL Renal/: Yes: WNL Cardiovascular: Yes: WNL JVD: No Carotid Bruit: No PMI: Non-Displaced Heart Sounds: Yes: S1, S2 Murmur: Yes: Systolic Murmur, Grade 1 Musculoskeletal: Yes: WNL Extremities: Yes: WNL Edema: No Peripheral Pulses WNL: Yes Integumentary: Yes: WNL Neurological: Yes: WNL ...Motor Strength: WNL Psychiatric: Yes: WNL - Other Data Labs, Other Data: CBC, BMP 05/16/19 01:55 05/16/19 01:55 Troponin, BNP 05/16/19 05/16/19 05/16/19 01:55 01:55 04:44 Troponin I < 0.02 < 0.02 B-Natriuretic Peptide 116.2 Cancelled 05/16/19 09:36 Troponin I < 0.02 B-Natriuretic Peptide Troponin, BNP 05/16/19 05/16/19 05/16/19 01:55 01:55 04:44 Troponin I < 0.02 < 0.02 B-Natriuretic Peptide 116.2 Cancelled 05/16/19 09:36 Troponin I < 0.02 B-Natriuretic Peptide Abnormal Lab Results 05/16/19 05/16/19 01:55 09:36 Chloride 109 H Anion Gap 5 L Alkaline Phosphatase 131 H Total LDL Cholesterol 103 H Echo: Report Reviewed Ejection Fraction %: LVEF > or = 40 % Imaging - Results Chest X-ray: Image Reviewed EKG: Image Reviewed (telemetry: NSR) Problem List - Problems (1) Elevated blood pressure reading Assessment/Plan: As discussed with Dr. Willams, will start HCTZ 12.5 mg daily in adition to pt's metoprolol and lisinopril. Code(s): R03.0 - ELEVATED BLOOD-PRESSURE READING, W/O DIAGNOSIS OF HTN (2) Overweight Code(s): E66.3 - OVERWEIGHT (3) Paroxysmal atrial fibrillation Code(s): I48.0 - PAROXYSMAL ATRIAL FIBRILLATION
--- NOTE | 2019-05-16 14:01 | DS ---
Physical Examination Vital Signs: Vital Signs Temperature 98 F 05/16/19 09:06 Pulse Rate 68 05/16/19 09:06 Respiratory Rate 17 05/16/19 09:06 Blood Pressure 135/86 05/16/19 09:06 O2 Sat by Pulse Oximetry (%) 99 05/16/19 09:06 Labs: CBC, BMP 05/16/19 01:55 05/16/19 01:55 Discharge Summary Problems reviewed: Yes Reason For Visit: CHEST PAIN Current Active Problems Elevated blood pressure reading (Acute) Hospital Course: see progress note Condition: Stable - Instructions Referrals: Adrianna Willams MD [Primary Care Provider] - - Home Medications Comprehensive Discharge Medication List: Ambulatory Orders Rivaroxaban [Xarelto -] 20 mg PO DAILY #0 09/22/16 Lisinopril/Hydrochlorothiazide [Lisinopril-Hctz 20-12.5 mg Tab] 1 each PO DAILY #60 tablet 05/16/19 Metoprolol Succinate [Toprol XL -] 50 mg PO DAILY MDD 1 05/16/19
[2019-05-16 15:15] LABS: PH,URINE 8.5 (5.0-8.0); URINE APPEARANCE CLEAR; URINE BILIRUBIN NEGATIVE (NEGATIVE); URINE COLOR YELLOW; URINE GLUCOSE (UA) NEGATIVE (NEGATIVE); URINE KETONE NEGATIVE (NEGATIVE); URINE LEUK ESTERASE NEGATIVE (NEGATIVE); URINE NITRITE NEGATIVE (NEGATIVE); URINE PROTEIN NEGATIVE (NEGATIVE); URINE UROBILINOGEN 0.2 mg/dL (0.2-1.0)
[2019-05-16] MEDS ORDERED: RIVAROXABAN 20 MG TABLET PO SCH (18:00)
[2019-05-16 18:42] VITALS: BP 133/78; PULSE 65; TEMP 98.2
[2019-05-17] MEDS ORDERED: ASPIRIN 81 MG CHEWABLE TABLETS PO SCH (10:00)
== END 2019-05-16 19:18 | disposition home or self-care (01) ==
LOC: JER 00:17 → JERBED 05:30 → J4W 08:30
PROVIDERS: ADMIT Internal Medicine; ATTEND Internal Medicine
DX: I10 Essential (primary) hypertension (principal); R07.89 Other chest pain; I48.0 Paroxysmal atrial fibrillation; R01.1 Cardiac murmur, unspecified; K21.9 Gastro-esophageal reflux disease without esophagitis; M79.7 Fibromyalgia; F41.9 Anxiety disorder, unspecified; E78.5 Hyperlipidemia, unspecified; E66.3 Overweight; Z68.33 Body mass index [BMI] 33.0-33.9, adult; Z87.891 Personal history of nicotine dependence; Z79.01 Long term (current) use of anticoagulants; Z86.19 Personal history of other infectious and parasitic diseases; Z98.890 Other specified postprocedural states
CPT/HCPCS: 36415; 71045-TC-FY; 80053; 80061; 81003; 82550; 83721; 83735; 83880; 84100; 84484; 85025; 93005; 93010; 99285-25; G0378

== ENCOUNTER 2019-08-10 21:19 | Emergency (ER) | payer OTHER ==
[2019-08-10 21:35] VITALS: TEMP 98.5; BMI 32.9
--- NOTE | 2019-08-10 21:37 | PDOC ---
Attending Attestation - Resident Resident Name: GraciaIgnacio - ED Attending Attestation I have performed the following: I have examined & evaluated the patient, The case was reviewed & discussed with the resident, I agree w/resident's findings & plan - HPI HPI: 08/10/19 22:07 Pt was at a friend's home and she had just eaten dinner and she suddenly felt headache; took an extended release Tylenol and thereafter weak in bilat arms and she has tightness in her throat. She has PMHx of anxiety and elevated blood pressure, PAF (on metoprolol and rivaroxaban), overweight, hyperlipidemia, and chest pressure - Physicial Exam PE: 08/10/19 23:54 Pt has normal neuro exam. CN 2-12 intact HEENT normal; no nystagmus Heart RRR Lungs CTA b Abd soft NT ND +BS no flank pain ext: no edema - Medical Decision Making 08/10/19 23:34 All labs are normal 08/10/19 23:54 UA is pending 08/11/19 00:07 UA normal 08/11/19 20:00 Pt stable for discharge
--- NOTE | 2019-08-10 22:10 | PDOC ---
History of Present Illness - General Chief Complaint: Chest Pain Stated Complaint: chest pain Time Seen by Provider: 08/10/19 21:36 History Source: Patient Exam Limitations: No Limitations - History of Present Illness Initial Comments: 59 yo F with a hx of paroxysmal atrial fibrillation (S/P ablation 2 years ago; NYP with Dr. Tom Ventura; currently on metoprolol and xarelto), HLD, HTN, hx of Rheumatoid fever in childhood, and fibromyalgia presents to the emergency department with tightness in her neck and weakness with associated lightheadedness after ingesting 1x tylenol 650 mg capsule. Per the patient, she was at a function in her building when she took the medication. She had onset of symptoms within 15-30 minutes. Denies chest pain, but endorses generalized weakness. Denies the following: fever, chills, ears/nose/throat pain, abdominal pain, dysuria, hematuria, diarrhea, hematochezia, and leg pain/swelling. Allergies: NKDA Past History - Past Medical History Allergies/Adverse Reactions: Allergies Allergy/AdvReac Type Severity Reaction Status Date / Time No Known Allergies Allergy Verified 05/16/19 00:43 Home Medications: Ambulatory Orders Rivaroxaban [Xarelto -] 20 mg PO DAILY #0 09/22/16 Lisinopril/Hydrochlorothiazide [Lisinopril-Hctz 20-12.5 mg Tab] 1 each PO DAILY #60 tablet 05/16/19 Metoprolol Succinate [Toprol XL -] 50 mg PO DAILY MDD 1 05/16/19 Anemia: No Asthma: No Cancer: No Cardiac Disorders: Yes (murmer, atrial fibrillation, ABLATION) CVA: Yes (tia ?) COPD: No CHF: No Dementia: No Diabetes: No GI Disorders: Yes (DIVERTICULOSIS; POLYP STOMACH; REFLUX; H/H) Disorders: No HTN: Yes Hypercholesterolemia: No Liver Disease: No Seizures: No Thyroid Disease: No - Surgical History Abdominal Surgery: Yes Appendectomy: Yes Cardiac Surgery: No Cholecystectomy: Yes GI Surgery: Yes (INTESTINAL RESECTION) Lung Surgery: No Neurologic Surgery: No Orthopedic Surgery: No - Immunization History Immunization Up to Date: Yes - Psycho Social/Smoking Cessation Hx Smoking Status: No Smoking History: Never smoked Have you smoked in the past 12 months: No Number of Cigarettes Smoked Daily: 0 If you are a former smoker, when did you quit?: 1988 'Breaking Loose' booklet given: 05/12/12 Hx Alcohol Use: No Drug/Substance Use Hx: No Substance Use Type: None Hx Substance Use Treatment: No Review of Systems - Review of Systems Able to Perform ROS?: Yes Is the patient limited Guyanese proficient: No Constitutional: Yes: Weakness. No: Chills, Diaphoresis, Fever HEENTM: No: Eye Pain, Ear Pain, Nose Pain, Throat Pain, Mouth Pain Respiratory: No: Cough, Shortness of Breath, Hemoptysis Cardiac (ROS): Yes: Lightheadedness. No: Chest Pain, Palpitations, Syncope, Chest Tightness ABD/GI: No: Constipated, Diarrhea, Nausea, Rectal Bleeding, Vomiting, Tarry Stools : No: Burning, Dysuria, Hematuria Musculoskeletal: No: Back Pain, Joint Pain, Neck Pain Integumentary: No: Bruising, Erythema, Rash Neurological: No: Headache, Numbness, Tingling, Tremors Psychiatric: No: Change in Appetite Endocrine: No: Unexplained Weight Gain Hematologic/Lymphatic: No: Anemia *Physical Exam - Vital Signs Last Vital Signs Temp Pulse Resp BP Pulse Ox 98.5 F 61 19 111/86 100 08/10/19 21:31 08/10/19 21:31 08/10/19 21:31 08/10/19 21:31 08/10/19 21:31 - Physical Exam General Appearance: Yes: Nourished, Appropriately Dressed, Obese. No: Apparent Distress, Intoxicated HEENT: positive: EOMI, FRANCIA, Normal Voice, Symmetrical, Pharynx Normal, Hearing Grossly Normal. negative: Pale Conjunctivae, Scleral Icterus (R), Scleral Icterus (L), Muffled/Hoarse voice, Pharyngeal Erythema, Tonsillar Exudate, Tonsillar Erythema, Excessive drooling Neck: positive: Trachea midline, Supple. negative: Tender, Lymphadenopathy (R) , Lymphadenopathy (L), Tender lateral, Tender midline Respiratory/Chest: positive: Lungs Clear, Normal Breath Sounds. negative: Chest Tender, Respiratory Distress, Accessory Muscle Use, Rhonchi, Stridor, Wheezing Cardiovascular: positive: Regular Rhythm, Regular Rate, S1, S2. negative: Systolic Murmur Gastrointestinal/Abdominal: positive: Normal Bowel Sounds, Flat, Soft. negative : Tender, Increased Bowel Sounds, Distended, Guarding, Rebound Lymphatic: negative: Adenopathy Musculoskeletal: positive: Normal Inspection. negative: CVA Tenderness, Vertebral Tenderness Extremity: positive: Normal Capillary Refill, Normal Inspection, Normal Range of Motion. negative: Tender Integumentary: positive: Normal Color, Dry, Warm Neurologic: positive: medical detailist II-XII NML intact, Fully Oriented, Alert, Normal Mood/ Affect, Normal Response, Motor Strength 5/5, Finger to Nose (intact bilaterally) . negative: EOM Palsy, Facial Droop, Sensory Deficit ED Treatment Course - LABORATORY CBC & Chemistry Diagram: 08/10/19 22:23 08/10/19 22:23 - RADIOLOGY Radiology Studies Ordered: Category Date Time Status CHEST X-RAY PORTABLE* [RAD] Stat Radiology 08/10/19 22:07 Ordered Medical Decision Making - Medical Decision Making 08/10/19 22:28 59 yo F with a hx of paroxysmal atrial fibrillation (S/P ablation 2 years ago; NYP with Dr. Tom Ventura; currently on metoprolol and xarelto), HLD, HTN, hx of Rheumatoid fever in childhood, and fibromyalgia presents to the emergency department with tightness in her neck and weakness with associated lightheadedness after ingesting 1x tylenol 650 mg capsule Initial vitals: Initial Vital Signs Temp Pulse Resp BP Pulse Ox 98.5 F 61 19 111/86 100 08/10/19 21:31 08/10/19 21:31 08/10/19 21:31 08/10/19 21:31 08/10/19 21:31 Work up: ddx: weakness. will rule out metabolic vs infectious vs cardiac etiology Laboratory Tests 08/10/19 08/10/19 08/10/19 22:23 22:23 22:23 WBC 9.1 RBC 4.43 Hgb 12.8 Hct 38.7 MCV 87.4 MCH 28.9 MCHC 33.0 RDW 13.2 Plt Count 284 MPV 8.1 Absolute Neuts (auto) 5.4 Neutrophils % 58.9 Lymphocytes % 33.3 Monocytes % 5.7 Eosinophils % 1.2 Basophils % 0.9 Nucleated RBC % 0 Sodium 140 Potassium 4.3 Chloride 105 Carbon Dioxide 29 Anion Gap 6 L BUN 18.8 H Creatinine 0.8 Est GFR (CKD-EPI)AfAm 94.19 Est GFR (CKD-EPI)NonAf 81.27 Random Glucose 96 Calcium 8.5 Magnesium 2.2 Total Bilirubin 0.4 AST 17 ALT 19 Alkaline Phosphatase 128 H Creatine Kinase 70 Troponin I < 0.02 Total Protein 6.7 Albumin 3.3 L Urine Color Urine Appearance Urine pH Ur Specific [place] Urine Protein Urine Glucose (UA) Urine Ketones Urine Blood Urine Nitrite Urine Bilirubin Urine Urobilinogen Ur Leukocyte Esterase 08/10/19 23:30 WBC RBC Hgb Hct MCV MCH MCHC RDW Plt Count MPV Absolute Neuts (auto) Neutrophils % Lymphocytes % Monocytes % Eosinophils % Basophils % Nucleated RBC % Sodium Potassium Chloride Carbon Dioxide Anion Gap BUN Creatinine Est GFR (CKD-EPI)AfAm Est GFR (CKD-EPI)NonAf Random Glucose Calcium Magnesium Total Bilirubin AST ALT Alkaline Phosphatase Creatine Kinase Troponin I Total Protein Albumin Urine Color Yellow Urine Appearance Clear Urine pH 7.0 Ur Specific [place] <= 1.005 L Urine Protein Negative Urine Glucose (UA) Negative Urine Ketones Negative Urine Blood Negative Urine Nitrite Negative Urine Bilirubin Negative Urine Urobilinogen 0.2 Ur Leukocyte Esterase Negative CXR within normal limits EKG does not show ST elevations or depressions. Patient's labs are within normal limits Patient on re-assessment has resolution of symptoms and is well at the time of discharge. Will discharge patient with PMD follow up. Discharge - Discharge Information Problems reviewed: Yes Clinical Impression/Diagnosis: Weakness Condition: Stable Disposition: HOME - Follow up/Referral Referrals: Adrianna Willams MD [Primary Care Provider] - - Patient Discharge Instructions Patient Printed Discharge Instructions: DI for Atypical Chest Pain Additional Instructions: You were seen in the emergency department for the evaluation of your weakness, Your lab work is within normal limits. Please follow up with your primary medical doctor within 1 week after discharge for follow up care and management. Please return to the emergency department if you have worsening symptoms or new concerning symptoms. Thank you. - Post Discharge Activity
[2019-08-10 22:43] LABS: BASO % 0.9 % (0-2.0); EOS % 1.2 % (0-4.5); HEMATOCRIT 38.7 % (32.4-45.2); HEMOGLOBIN 12.8 GM/dL (10.7-15.3); LYMPH % 33.3 % (8-40); MCH 28.9 pg (25.7-33.7); MEAN CELL VOLUME 87.4 fl (80-96); MEAN PLT VOLUME 8.1 fl (7.5-11.1); MONO % 5.7 % (3.8-10.2); NEUT % 58.9 % (42.8-82.8); PLATELET COUNT 284 K/MM3 (134-434); RBC 4.43 M/mm3 (3.60-5.2); RDW 13.2 % (11.6-15.6); WHITE BLOOD COUNT 9.1 K/mm3 (4.0-10.0)
[2019-08-10 23:11] LABS: ALBUMIN 3.3 g/dl (3.4-5.0); ALK PHOS 128 U/L (45-117); ANION GAP 6 MMOL/L (8-16); BILIRUBIN,TOTAL 0.4 mg/dL (0.2-1); BLOOD UREA NITROGEN 18.8 mg/dL (7-18); CALCIUM 8.5 mg/dL (8.5-10.1); CHLORIDE 105 mmol/L (98-107); CO2 29 mmol/L (21-32); CREATININE 0.8 mg/dL (0.55-1.3); GLUCOSE,RANDOM 96 mg/dL (74-106); POTASSIUM 4.3 mmol/L (3.5-5.1); SGOT/AST 17 U/L (15-37); SGPT/ALT 19 U/L (13-61); SODIUM 140 mmol/L (136-145); TOT PROT 6.7 g/dl (6.4-8.2)
[2019-08-10 23:56] LABS: URINE APPEARANCE Clear; URINE BILIRUBIN Negative (NEGATIVE); URINE COLOR Yellow; URINE GLUCOSE (UA) Negative (NEGATIVE); URINE KETONE Negative (NEGATIVE); URINE LEUK ESTERASE Negative (NEGATIVE); URINE NITRITE Negative (NEGATIVE); URINE PROTEIN Negative (NEGATIVE); URINE UROBILINOGEN 0.2 mg/dL (0.2-1.0)
[2019-08-11 01:26] VITALS: BP 119/64; PULSE 62
--- NOTE | 2019-08-11 12:29 | EKG ---
Test Reason : Blood Pressure : / mmHG Vent. Rate : 062 BPM Atrial Rate : 062 BPM P-R Int : 170 ms QRS Dur : 086 ms QT Int : 428 ms P-R-T Axes : 061 -15 023 degrees QTc Int : 434 ms NORMAL SINUS RHYTHM NONSPECIFIC T WAVE ABNORMALITY CANNOT RULE OUT ANTERIOR INFARCT , AGE UNDETERMINED ABNORMAL ECG WHEN COMPARED WITH ECG OF 16-MAY-2019 00:18, NO SIGNIFICANT CHANGE WAS FOUND Confirmed by MARIELA BOWMAN MD ([id number]) on 08/11/2019 12:29:32 PM Referred By: Confirmed By:MARIELA BOWMAN MD
== END 2019-08-11 01:05 | disposition home or self-care (01) ==
LOC: JER 21:19
DX: R53.1 Weakness (principal); I10 Essential (primary) hypertension; E78.5 Hyperlipidemia, unspecified; I48.0 Paroxysmal atrial fibrillation; Z79.01 Long term (current) use of anticoagulants; Z87.19 Personal history of other diseases of the digestive system
CPT/HCPCS: 36415; 71045-TC-FY; 80053; 81003; 82550; 83735; 84484; 85025; 93005; 93010; 99283-25

== ENCOUNTER 2020-02-23 22:52 | Emergency (ER) | payer OTHER ==
[2020-02-23 23:05] VITALS: BMI 29.2
[2020-02-23] MEDS ORDERED: ASPIRIN 81 MG CHEWABLE TABLETS PO ONE (23:39)
[2020-02-23] MEDS ORDERED: ASPIRIN 81 MG CHEWABLE TABLETS ONE (23:49)
--- NOTE | 2020-02-23 23:57 | PDOC ---
History of Present Illness - General Chief Complaint: Chest Pain Stated Complaint: CHEST PAIN/DIZZINESS Time Seen by Provider: 02/23/20 23:08 - History of Present Illness Initial Comments: 02/23/20 23:39 59 yo female with pmh of htn, afib, rheumatoid fever, fibromyalgia presenting to ED for chest pressure that occurred 25 minuts before presenting to ED. Pt explains never had pain like this before. Pt was lying in bed watching tv and started having chest pressure. The pressure lasted only a few seconds and came on and off for the last 25 minutes. Pt denies any radiation to arms but did have some nausea and diaphoresis. Pt jana SOB and tihs feeling like reflex from before. Pt denies any recent travel, fever, cough, calf tenderness. PMH: htn, afib, rheumatoid fever, fibromyalgia PSH: tonsillectomy, cholecystectomy, colectomy Allergies: denies Social: denies smoking, drugs, alcohol PCP: Dr. Adrianna Willams Past History - Medical History Allergies/Adverse Reactions: Allergies Allergy/AdvReac Type Severity Reaction Status Date / Time No Known Allergies Allergy Verified 05/16/19 00:43 Home Medications: Ambulatory Orders Rivaroxaban [Xarelto -] 20 mg PO DAILY #0 09/22/16 Lisinopril/Hydrochlorothiazide [Lisinopril-Hctz 20-12.5 mg Tab] 1 each PO DAILY #60 tablet 05/16/19 Metoprolol Succinate [Toprol XL -] 50 mg PO DAILY MDD 1 05/16/19 Anemia: No Asthma: No Cancer: No Cardiac Disorders: Yes (murmer, atrial fibrillation, ABLATION) CVA: Yes (tia ?) COPD: No CHF: No Dementia: No Diabetes: No GI Disorders: Yes (DIVERTICULOSIS; POLYP STOMACH; REFLUX; H/H) Disorders: No HTN: Yes Hypercholesterolemia: No Liver Disease: No Seizures: No Thyroid Disease: No - Surgical History Abdominal Surgery: Yes Appendectomy: Yes Cardiac Surgery: No Cholecystectomy: Yes GI Surgery: Yes (INTESTINAL RESECTION) Lung Surgery: No Neurologic Surgery: No Orthopedic Surgery: No - Immunization History Immunization Up to Date: Yes - Psycho-Social/Smoking History Smoking Status: No Smoking History: Never smoked Have you smoked in the past 12 months: No Number of Cigarettes Smoked Daily: 0 If you are a former smoker, when did you quit?: 1988 'Breaking Loose' booklet given: 05/12/12 - Substance Abuse Hx (Audit-C & DAST Scrn) How often the patient has a drink containing alcohol: Never Score: In Men: 4 or > Positive; In Women: 3 or > Positive: 0 Screen Result (Pos requires Nsg. Audit-10AR): Negative Review of Systems - Review of Systems Comments:: 02/24/20 07:39 GENERAL/CONSTITUTIONAL: No fever or chills. No weakness. HEAD, EYES, EARS, NOSE AND THROAT: No change in vision. No ear pain or discharge. No sore throat. CARDIOVASCULAR: chest pain. No shortness of breath. RESPIRATORY: No cough, wheezing, or hemoptysis. GASTROINTESTINAL:Nausea. NO vomiting, diarrhea or constipation. GENITOURINARY: No dysuria, frequency, or change in urination. MUSCULOSKELETAL: No joint or muscle swelling or pain. No neck or back pain. SKIN: No rash NEUROLOGIC: No headache, vertigo, loss of consciousness, or change in strength/sensation. ENDOCRINE: No increased thirst. No abnormal weight change. ALLERGIC/IMMUNOLOGIC: No hives or skin allergy. *Physical Exam - Vital Signs Last Vital Signs Temp Pulse Resp BP Pulse Ox 98.1 F 54 L 20 138/78 99 02/23/20 23:01 02/23/20 23:01 02/23/20 23:01 02/23/20 23:01 02/23/20 23:01 - Physical Exam 02/24/20 07:40 GENERAL: Awake, alert, and fully oriented, in no acute distress HEAD: No signs of trauma, normocephalic, atraumatic EYES: PERRLA, EOMI, sclera anicteric, conjunctiva clear ENT: Auricles normal inspection, hearing grossly normal, nares patent, oropharynx clear without exudates. Moist mucosa NECK: Normal ROM, supple, no lymphadenopathy, JVD, or masses LUNGS: No distress, speaks full sentences, clear to auscultation bilaterally HEART: Regular rate and rhythm, normal S1 and S2, no murmurs, rubs or gallops, peripheral pulses normal and equal bilaterally. ABDOMEN: Soft, nontender, normoactive bowel sounds. No guarding, no rebound. No masses EXTREMITIES : Normal inspection, Normal range of motion, no edema. No clubbing or cyanosis. NEUROLOGICAL: Cranial nerves II through XII grossly intact. Normal speech, normal gait, no focal sensorimotor deficits SKIN: Warm, Dry, normal turgor, no rashes or lesions noted ED Treatment Course - LABORATORY CBC & Chemistry Diagram: 02/23/20 23:50 02/23/20 23:50 Medical Decision Making - Medical Decision Making 02/23/20 23:57 59 year old female with pmh of htn, afib, pressure type chest pain that lasted a few minutes 25 min before ED. Will get cbc, cmp, ekg, cxr, 02/24/20 07:41 Labs came back normal. Pt feels good will discharge. Discharge - Discharge Information Problems reviewed: Yes Clinical Impression/Diagnosis: Atypical chest pain Condition: Good Disposition: HOME - Follow up/Referral Referrals: Adrianna Willams MD [Primary Care Provider] - - Patient Discharge Instructions Patient Printed Discharge Instructions: DI for Atypical Chest Pain Additional Instructions: You came to the ED for chest pain. At the ED we jackie labs, EKG, and chest xray. These all showed no gross abnormalities. You right now do not have any pain. Your workup is not complete without following up with your pcp within the next few days If you have any of the following please return: - worsening chest pain - worsening shortness of breath - unable to eat anything by mouth - emergent symptoms If you have any emergency please call for medical help right away. - Post Discharge Activity
[2020-02-24 00:09] LABS: BASO % 0.5 % (0-2.0); EOS % 1.1 % (0-4.5); HEMATOCRIT 38.5 % (32.4-45.2); HEMOGLOBIN 12.8 GM/dL (10.7-15.3); LYMPH % 27.4 % (8-40); MCHC 33.4 g/dl (32.0-36.0); MEAN PLT VOLUME 9.2 fl (7.5-11.1); MONO % 6.7 % (3.8-10.2); NEUT % 64.3 % (42.8-82.8); PLATELET COUNT 281 K/MM3 (134-434); RBC 4.27 M/mm3 (3.60-5.2); WHITE BLOOD COUNT 9.6 K/mm3 (4.0-10.0)
[2020-02-24 00:15] VITALS: BP 127/63; PULSE 58; TEMP 98.7
[2020-02-24 00:23] LABS: ALBUMIN 3.6 g/dl (3.4-5.0); ALK PHOS 121 U/L (45-117); ANION GAP 5 MMOL/L (8-16); BILIRUBIN,TOTAL 0.4 mg/dL (0.2-1); BLOOD UREA NITROGEN 13.6 mg/dL (7-18); CALCIUM 8.7 mg/dL (8.5-10.1); CHLORIDE 105 mmol/L (98-107); CO2 30 mmol/L (21-32); CREATININE 0.9 mg/dL (0.55-1.3); GLUCOSE,RANDOM 86 mg/dL (74-106); N-TERMINAL BNP 206.8 pg/ml (5-125); POTASSIUM 4.4 mmol/L (3.5-5.1); SGOT/AST 19 U/L (15-37); SGPT/ALT 15 U/L (13-61); SODIUM 140 mmol/L (136-145); TOT PROT 6.8 g/dl (6.4-8.2)
--- NOTE | 2020-02-24 09:12 | EKG ---
Test Reason : Blood Pressure : / mmHG Vent. Rate : 058 BPM Atrial Rate : 058 BPM P-R Int : 164 ms QRS Dur : 082 ms QT Int : 454 ms P-R-T Axes : 050 -29 024 degrees QTc Int : 445 ms SINUS BRADYCARDIA WITH PREMATURE ATRIAL COMPLEXES ABNORMAL ECG WHEN COMPARED WITH ECG OF 10-AUG-2019 21:31, PREMATURE ATRIAL COMPLEXES ARE NOW PRESENT Confirmed by Marilu Spaulding ([id number]) on 02/24/2020 9:12:00 AM Referred By: Confirmed By:Marilu Spaulding
--- NOTE | 2020-03-08 21:17 | PDOC ---
Documentation entered by Yovani Lal SCRIBE, acting as scribe for Shayy Feldman MD. Shayy Feldman MD: This documentation has been prepared by the Hali marie Xhesika, SCRIBE, under my direction and personally reviewed by me in its entirety. I confirm that the documentation accurately reflects all work, treatment, procedures, and medical decision making performed by me. Attending Attestation - Resident Resident Name: [email or web address] - ED Attending Attestation I have performed the following: I have examined & evaluated the patient, The case was reviewed & discussed with the resident, I agree w/resident's findings & plan - HPI HPI: 02/23/20 23:13 The patient is a 59 year old female with a PMH of HTN, paroxysmal Afib s/p ablation x 2, and diverticulitis s/p bowel resection presents to the ED with a couple hours of a "cold sensation" in her heart radiating to her throat and arm. 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 Pt states her BP was elevated when her symptoms started but it has been normal in the ED. Pt states she has been stressed due to her work and income. Pt states she saw her PCP 2 weeks ago and all her lab work was remarkable. Allergies: NKDA Past surgical history: s/p ablation, s/p bowel resection PCP: Dr. Adrianna Willams - Physicial Exam PE: 02/24/20 00:41 GENERAL: Awake, alert, and fully oriented, in no acute distress HEAD: No signs of trauma EYES: PERRLA, EOMI, sclera anicteric, conjunctiva clear ENT: Auricles normal inspection, hearing grossly normal, nares patent, oropharynx clear without exudates. Moist mucosa NECK: Normal ROM, supple, no lymphadenopathy, JVD, or masses LUNGS: Breath sounds equal, clear to auscultation bilaterally. No wheezes, and no crackles HEART: Regular rate and rhythm, normal S1 and S2, no murmurs, rubs or gallops ABDOMEN: Soft, nontender, normoactive bowel sounds. No guarding, no rebound. No masses EXTREMITIES: Normal range of motion, no edema. No clubbing or cyanosis. No cords, erythema, or tenderness NEUROLOGICAL: Cranial nerves II through XII grossly intact. Normal speech, normal gait SKIN: Warm, Dry, normal turgor, no rashes lesions noted. - Medical Decision Making 02/24/20 00:20 CXR normal; same as old. 02/24/20 00:33 Pt is stable for discharge Normal unchanged EKG labs normal Pt is stable for discharge. She can follow with her specialists, as her PMD exam was completed a couple weeks ago. Discharge - Discharge Information Problems reviewed: Yes Clinical Impression/Diagnosis: Atypical chest pain Condition: Good Disposition: HOME - Follow up/Referral Referrals: Adrianna Willams MD [Primary Care Provider] - - Patient Discharge Instructions Patient Printed Discharge Instructions: DI for Atypical Chest Pain Additional Instructions: You came to the ED for chest pain. At the ED we jackie labs, EKG, and chest xray. These all showed no gross abnormalities. You right now do not have any pain. Your workup is not complete without following up with your pcp within the next few days If you have any of the following please return: - worsening chest pain - worsening shortness of breath - unable to eat anything by mouth - emergent symptoms If you have any emergency please call for medical help right away. - Post Discharge Activity
== END 2020-02-24 01:30 | disposition home or self-care (01) ==
LOC: JER 22:52
DX: R07.89 Other chest pain (principal)
CPT/HCPCS: 36415; 71045-TC-FY; 80053; 83880; 84484; 85025; 93005; 93010; 99285-25

== ENCOUNTER 2020-11-28 23:48 | Emergency (ER) | payer OTHER ==
[2020-11-29 00:04] VITALS: TEMP 97.9; BMI 28.1
[2020-11-29] MEDS ORDERED: LORazepam 2 MG TABLET PO ONE (03:24)
[2020-11-29] MEDS ORDERED: LORazepam 1 MG TABLET ONE (03:39)
[2020-11-29 03:46] VITALS: BP 135/72; PULSE 76
== END 2020-11-29 04:18 | disposition home or self-care (01) ==
LOC: JER 23:48
DX: R03.0 Elevated blood-pressure reading, without diagnosis of hypertension (principal); Z63.79 Other stressful life events affecting family and household
CPT/HCPCS: 93005; 93010; 99284-25

== ENCOUNTER 2022-01-05 23:50 | Inpatient (IN) | payer OTHER ==
[2022-01-06 00:56] VITALS: BMI 32.5
[2022-01-06 01:51] LABS: BASO % 0.6 % (0-2.0); EOS % 1.7 % (0-4.5); HEMATOCRIT 35.8 % (32.4-45.2); HEMOGLOBIN 11.6 GM/dL (10.7-15.3); LYMPH % 30.6 % (8-40); MCH 26.4 pg (25.7-33.7); MCHC 32.4 g/dl (32.0-36.0); MEAN CELL VOLUME 81.7 fl (80-96); MEAN PLT VOLUME 7.9 fl (7.5-11.1); MONO % 6.6 % (3.8-10.2); NEUT % 60.5 % (42.8-82.8); PLATELET COUNT 322 10^3/uL (134-434); RBC 4.38 M/mm3 (3.60-5.2); RDW 15.7 % (11.6-15.6); WHITE BLOOD COUNT 9.5 K/mm3 (4.0-10.0)
[2022-01-06 01:59] LABS: INR 1.14 (0.83-1.09); PROTHROMBIN TIME (PATIENT) 13.1 SEC (9.7-13.0)
[2022-01-06 02:01] LABS: ACTIVATED PTT 34.9 SECONDS (25.2-36.5)
[2022-01-06 02:12] LABS: ALBUMIN 3.4 g/dl (3.4-5.0); BLOOD UREA NITROGEN 13.5 mg/dL (7-18); CALCIUM 8.5 mg/dL (8.5-10.1)
[2022-01-06 02:16] LABS: CREATININE 0.6 mg/dL (0.55-1.3)
[2022-01-06 02:17] LABS: BILIRUBIN,TOTAL 0.5 mg/dL (0.2-1)
[2022-01-06 02:18] LABS: TOT PROT 6.6 g/dl (6.4-8.2)
[2022-01-06] MEDS ORDERED: PANTOPRAZOLE SODIUM 40 MG VIAL IVPUSH ONE (02:33)
[2022-01-06] MEDS ORDERED: PANTOPRAZOLE SODIUM 40 MG VIAL ONE (02:40)
[2022-01-06] MEDS ORDERED: CEFTRIAXONE 1,000 MG in DEXTROSE 5%-WATER - 50 ML IVPB SCH (12:45)
[2022-01-06] MEDS ORDERED: CEFTRIAXONE 1 GM in DEXTROSE 5%-WATER - 50 ML IVPB SCH (12:50)
[2022-01-06] MEDS ORDERED: BISACODYL 5 MG TABLET.DR (FP) PO ONE ×2 (16:00)
[2022-01-06] MEDS ORDERED: PEG 3350/NA SULF BICARB CL/KCL 4000 ML SOLN.RECON PO ONE ×2 (17:00)
[2022-01-06] MEDS ORDERED: TRIMETHOBENZAMIDE HCL 200MG/2ML INJ IM PRN (20:14)
[2022-01-06 21:21] LABS: BASO % 0.6 % (0-2.0); EOS % 1.7 % (0-4.5); HEMATOCRIT 36.2 % (32.4-45.2); LYMPH % 31.1 % (8-40); MCHC 33.2 g/dl (32.0-36.0); MEAN CELL VOLUME 81.2 fl (80-96); MEAN PLT VOLUME 7.8 fl (7.5-11.1); MONO % 6.4 % (3.8-10.2); NEUT % 60.2 % (42.8-82.8); PLATELET COUNT 307 10^3/uL (134-434); RBC 4.46 M/mm3 (3.60-5.2); RDW 15.4 % (11.6-15.6); WHITE BLOOD COUNT 7.9 K/mm3 (4.0-10.0)
[2022-01-06 21:33] LABS: CALCIUM 8.6 mg/dL (8.5-10.1)
[2022-01-06 21:34] LABS: BLOOD UREA NITROGEN 9.2 mg/dL (7-18)
[2022-01-06 21:36] LABS: CREATININE 0.6 mg/dL (0.55-1.3)
[2022-01-06] MEDS ORDERED: PANTOPRAZOLE SODIUM 40 MG VIAL IVPUSH SCH (22:00)
[2022-01-07 07:05] LABS: BASO % 0.7 % (0-2.0); EOS % 1.4 % (0-4.5); HEMATOCRIT 37.2 % (32.4-45.2); HEMOGLOBIN 12.3 GM/dL (10.7-15.3); LYMPH % 25.9 % (8-40); MEAN CELL VOLUME 81.8 fl (80-96); MEAN PLT VOLUME 8.1 fl (7.5-11.1); MONO % 6.6 % (3.8-10.2); NEUT % 65.4 % (42.8-82.8); PLATELET COUNT 307 10^3/uL (134-434); RBC 4.55 M/mm3 (3.60-5.2); RDW 15.3 % (11.6-15.6)
[2022-01-07 07:22] LABS: CALCIUM 8.4 mg/dL (8.5-10.1)
[2022-01-07 07:23] LABS: ALBUMIN 3.3 g/dl (3.4-5.0)
[2022-01-07 07:27] LABS: CREATININE 0.6 mg/dL (0.55-1.3)
[2022-01-07 07:29] LABS: BILIRUBIN,TOTAL 1.4 mg/dL (0.2-1); TOT PROT 6.4 g/dl (6.4-8.2)
[2022-01-07] MEDS: PANTOPRAZOLE 40 MG TABLET PO SCH (10:00)
[2022-01-07] MEDS: ACETAMINOPHEN 1000 MG/100 ML BAG IVPB PRN (11:56)
[2022-01-08] MEDS: ACETAMINOPHEN 1000 MG/100 ML BAG IVPB PRN (03:30)
[2022-01-08 07:13] LABS: HEMATOCRIT 36.7 % (32.4-45.2); HEMOGLOBIN 12.1 GM/dL (10.7-15.3); MCH 26.9 pg (25.7-33.7); MCHC 32.9 g/dl (32.0-36.0); MEAN CELL VOLUME 81.9 fl (80-96); PLATELET COUNT 332 10^3/uL (134-434); RBC 4.48 M/mm3 (3.60-5.2); RDW 15.7 % (11.6-15.6); WHITE BLOOD COUNT 9.5 K/mm3 (4.0-10.0)
[2022-01-08 07:14] LABS: BASO % 0.4 % (0-2.0); MONO % 6.4 % (3.8-10.2); NEUT % 67.2 % (42.8-82.8)
[2022-01-08 07:48] LABS: BLOOD UREA NITROGEN 10.6 mg/dL (7-18); CALCIUM 8.5 mg/dL (8.5-10.1)
[2022-01-08 07:51] LABS: CREATININE 0.7 mg/dL (0.55-1.3)
[2022-01-08 07:52] LABS: BILIRUBIN,TOTAL 1.1 mg/dL (0.2-1); TOT PROT 5.8 g/dl (6.4-8.2)
[2022-01-08] MEDS ORDERED: BENZOCAINE/MENTH/CETYLPYRD CL 1 EACH LOZENGE MM PRN (09:13)
[2022-01-08] MEDS: HYDROCHLOROTHIAZIDE 12.5 MG CAPSULE (FP) PO SCH (09:58)
[2022-01-08] MEDS: metoPROLOL SUCCINATE 25 MG TAB.SR.24H (FP) PO SCH (09:58)
[2022-01-08] MEDS: LISINOPRIL 20 MG TABLET PO SCH (09:58)
[2022-01-08] MEDS: ESCITALOPRAM OXALATE 10 MG TABLET PO SCH (09:59)
[2022-01-08] MEDS: RIVAROXABAN 20 MG TABLET PO SCH (09:59)
[2022-01-08] MEDS ORDERED: LORazepam 0.5 MG TABLET PO PRN (10:00)
[2022-01-08] MEDS ORDERED: PATIENT'S OWN MEDICATION (NON-FORMULARY) (Lisinopril/Hydrochlorothiazide [Lisinopril-Hctz PO SCH (10:00)
[2022-01-08] MEDS: PANTOPRAZOLE 40 MG TABLET PO SCH (10:05)
[2022-01-09 07:01] LABS: BASO % 0.8 % (0-2.0); EOS % 2.6 % (0-4.5); HEMATOCRIT 37.1 % (32.4-45.2); HEMOGLOBIN 12.2 GM/dL (10.7-15.3); MCH 27.2 pg (25.7-33.7); MCHC 32.9 g/dl (32.0-36.0); MEAN CELL VOLUME 82.5 fl (80-96); MEAN PLT VOLUME 7.8 fl (7.5-11.1); MONO % 7.7 % (3.8-10.2); NEUT % 46.9 % (42.8-82.8); PLATELET COUNT 326 10^3/uL (134-434); RBC 4.49 M/mm3 (3.60-5.2); RDW 15.7 % (11.6-15.6)
[2022-01-09 07:18] LABS: CALCIUM 8.3 mg/dL (8.5-10.1)
[2022-01-09 07:19] LABS: BLOOD UREA NITROGEN 11.6 mg/dL (7-18)
[2022-01-09 07:21] LABS: CREATININE 0.6 mg/dL (0.55-1.3)
[2022-01-09] MEDS ORDERED: HURRICAINE SP EXT TUBE 1 EA EACH TP PRN (09:04)
[2022-01-09] MEDS: PANTOPRAZOLE 40 MG TABLET PO SCH (09:35)
[2022-01-09] MEDS: HYDROCHLOROTHIAZIDE 12.5 MG CAPSULE (FP) PO SCH (09:35)
[2022-01-09] MEDS: ESCITALOPRAM OXALATE 10 MG TABLET PO SCH (09:35)
[2022-01-09] MEDS: RIVAROXABAN 20 MG TABLET PO SCH (09:36)
[2022-01-09] MEDS: LISINOPRIL 20 MG TABLET PO SCH (09:36)
[2022-01-09] MEDS: metoPROLOL SUCCINATE 25 MG TAB.SR.24H (FP) PO SCH (14:46)
[2022-01-10] MEDS: PANTOPRAZOLE 40 MG TABLET PO SCH (09:37)
[2022-01-10] MEDS: metoPROLOL SUCCINATE 25 MG TAB.SR.24H (FP) PO SCH (09:39)
[2022-01-10] MEDS: RIVAROXABAN 20 MG TABLET PO SCH (09:39)
[2022-01-10] MEDS: HYDROCHLOROTHIAZIDE 12.5 MG CAPSULE (FP) PO SCH (09:39)
[2022-01-10] MEDS: ESCITALOPRAM OXALATE 10 MG TABLET PO SCH (09:40)
[2022-01-10] MEDS: LISINOPRIL 20 MG TABLET PO SCH (09:40)
[2022-01-10 10:41] VITALS: BP 150/63; PULSE 87; TEMP 97
== END 2022-01-10 13:43 | disposition home or self-care (01) | DRG 254 ==
LOC: JER 23:50 → JERBED 01-06 06:55 → J2W 01-06 14:02
PROVIDERS: ADMIT Internal Medicine; ATTEND Internal Medicine
PROC: 0DJ08ZZ Inspection of Upper Intestinal Tract, Via Natural or Artificial Opening Endoscopic (ICD-10-PCS; 2022-01-07)
PROC: 0DJD8ZZ Inspection of Lower Intestinal Tract, Via Natural or Artificial Opening Endoscopic (ICD-10-PCS; principal; 2022-01-07 14:00)
DX: K64.4 Residual hemorrhoidal skin tags (principal); U07.1 COVID-19; I48.0 Paroxysmal atrial fibrillation; K57.90 Diverticulosis of intestine, part unspecified, without perforation or abscess without bleeding; I10 Essential (primary) hypertension; K44.9 Diaphragmatic hernia without obstruction or gangrene; K62.5 Hemorrhage of anus and rectum
CPT/HCPCS: 36415; 71045-TC-FY; 74175-TC; 80048; 80053; 82272; 83605; 85025; 85610; 85730; 86850; 86900; 86901; 99285-25; C9803-CS; U0003; U0005

== ENCOUNTER 2022-03-14 04:07 | Day surgery (SDC) | payer OTHER ==
[2022-03-11 13:35] VITALS: BMI 33.5
[2022-03-14] MEDS ORDERED: ACETAMINOPHEN 325 MG TABLET (FP) PO PRN (09:40)
[2022-03-14] MEDS ORDERED: IBUPROFEN 400 MG TABLET (FP) PO PRN (09:40)
[2022-03-14 11:26] LABS: INR 1.09 (0.83-1.09); PROTHROMBIN TIME (PATIENT) 12.6 SEC (9.7-13.0)
[2022-03-14] MEDS ORDERED: ONDANSETRON 4 MG/2 ML VIAL IVPUSH PRN (12:51)
[2022-03-14] MEDS ORDERED: PROPOFOL 40 ML ONE (12:56)
[2022-03-14] MEDS ORDERED: MIDAZOLAM HCL 2 MG/2 ML SINGLE DOSE VIAL ONE (12:57)
[2022-03-14] MEDS ORDERED: LACTATED RINGERS SOLUTION 1,000 ML IV SCH (13:00)
[2022-03-14 16:08] VITALS: RESP 16
[2022-03-14] MEDS ORDERED: BENZOCAINE/MENTHOL 1 EACH LOZENGE MM ONE (18:15)
[2022-03-14 18:38] VITALS: BP 124/63; PULSE 63; TEMP 97.3
== END 2022-03-14 18:25 | disposition home or self-care (01) ==
LOC: JASU-SURG 04:07
PROVIDERS: ATTEND Obstetrics & Gynecology
PROC: 0UB98ZX Excision of Uterus, Via Natural or Artificial Opening Endoscopic, Diagnostic (ICD-10-PCS; principal; 2022-03-14 13:30)
PROC: 0UDB7ZZ Extraction of Endometrium, Via Natural or Artificial Opening (ICD-10-PCS; 2022-03-14 13:30)
DX: N95.0 Postmenopausal bleeding (principal); N84.0 Polyp of corpus uteri
CPT/HCPCS: 36415; 85610; 88305-TC; 94760

== ENCOUNTER 2022-04-22 23:01 | Observation (INO) | payer OTHER ==
[2022-04-23 00:58] LABS: EOS % 1.7 % (0-4.5); HEMATOCRIT 34.4 % (32.4-45.2); LYMPH % 31.9 % (8-40); MCH 25.2 pg (25.7-33.7); MCHC 31.9 g/dl (32.0-36.0); MEAN PLT VOLUME 7.8 fl (7.5-11.1); MONO % 6.3 % (3.8-10.2); NEUT % 59.1 % (42.8-82.8); PLATELET COUNT 321 10^3/uL (134-434); RBC 4.36 M/mm3 (3.60-5.2); RDW 15.7 % (11.6-15.6); WHITE BLOOD COUNT 8.7 K/mm3 (4.0-10.0)
[2022-04-23 01:04] LABS: INR 1.28 (0.83-1.09); PROTHROMBIN TIME (PATIENT) 14.8 SEC (9.7-13.0)
[2022-04-23 01:06] LABS: ACTIVATED PTT 34.1 SECONDS (25.2-36.5)
[2022-04-23 01:15] LABS: CHLORIDE 108 mmol/L (98-107); SODIUM 142 mmol/L (136-145)
[2022-04-23 01:18] LABS: ALBUMIN 3.4 g/dl (3.4-5.0); ANION GAP 7 MMOL/L (8-16); BLOOD UREA NITROGEN 15.9 mg/dL (7-18); CALCIUM 8.6 mg/dL (8.5-10.1); CO2 27 mmol/L (21-32); GLUCOSE,RANDOM 111 mg/dL (74-106)
[2022-04-23 01:20] LABS: SGPT/ALT 18 U/L (13-61)
[2022-04-23 01:21] LABS: CREATININE 0.8 mg/dL (0.55-1.3); SGOT/AST 17 U/L (15-37)
[2022-04-23 01:22] LABS: BILIRUBIN,TOTAL 0.4 mg/dL (0.2-1); TOT PROT 6.6 g/dl (6.4-8.2)
[2022-04-23 01:24] LABS: ALK PHOS 151 U/L (45-117)
[2022-04-23] MEDS ORDERED: ASPIRIN 81 MG CHEWABLE TABLETS PO ONE (01:56)
[2022-04-23] MEDS ORDERED: ASPIRIN 81 MG CHEWABLE TABLETS ONE (02:37)
[2022-04-23] MEDS ORDERED: LISINOPRIL 20 MG TABLET PO ONE (12:06)
[2022-04-23] MEDS ORDERED: metoPROLOL SUCCINATE 25 MG TAB.SR.24H (FP) PO ONE ×2 (12:06→13:15)
[2022-04-23] MEDS ORDERED: RIVAROXABAN 15 MG TABLET PO ONE (12:06)
[2022-04-23] MEDS ORDERED: RIVAROXABAN 20 MG TABLET PO ONE (12:15)
[2022-04-23] MEDS ORDERED: LISINOPRIL 20 MG TABLET ONE (13:14)
[2022-04-23] MEDS ORDERED: PANTOPRAZOLE 40 MG TABLET PO ONE (21:18)
[2022-04-23] MEDS: PANTOPRAZOLE 40 MG TABLET PO SCH (21:24)
[2022-04-23 22:29] VITALS: BMI 33.0
[2022-04-24 09:16] VITALS: RESP 18
[2022-04-24 09:26] LABS: EOS % 1.7 % (0-4.5); HEMATOCRIT 37.9 % (32.4-45.2); HEMOGLOBIN 11.9 GM/dL (10.7-15.3); LYMPH % 42.3 % (8-40); MCH 24.7 pg (25.7-33.7); MCHC 31.4 g/dl (32.0-36.0); MEAN CELL VOLUME 78.5 fl (80-96); MEAN PLT VOLUME 8.1 fl (7.5-11.1); PLATELET COUNT 376 10^3/uL (134-434); RBC 4.82 M/mm3 (3.60-5.2); RDW 15.8 % (11.6-15.6); WHITE BLOOD COUNT 6.7 K/mm3 (4.0-10.0)
[2022-04-24] MEDS ORDERED: ESCITALOPRAM OXALATE 10 MG TABLET PO SCH (10:00)
[2022-04-24] MEDS ORDERED: metoPROLOL SUCCINATE 25 MG TAB.SR.24H (FP) PO SCH (10:00)
[2022-04-24] MEDS ORDERED: LISINOPRIL 20 MG TABLET PO SCH (10:00)
[2022-04-24] MEDS ORDERED: PATIENT'S OWN MEDICATION (NON-FORMULARY) (Omeprazole 20 MG Capsule.Dr) PO SCH (10:00)
[2022-04-24 10:18] LABS: BILIRUBIN,TOTAL 1.1 mg/dL (0.2-1)
[2022-04-24] MEDS: PANTOPRAZOLE 40 MG TABLET PO SCH (10:19)
[2022-04-24 10:21] LABS: ALBUMIN 3.2 g/dl (3.4-5.0)
[2022-04-24 10:23] LABS: BLOOD UREA NITROGEN 14.8 mg/dL (7-18); CALCIUM 8.7 mg/dL (8.5-10.1); MAGNESIUM 2.5 mg/dL (1.8-2.4); PHOSPHOROUS 3.4 mg/dL (2.5-4.9)
[2022-04-24 10:27] LABS: CREATININE 0.7 mg/dL (0.55-1.3); TOT PROT 6.3 g/dl (6.4-8.2)
[2022-04-24 14:27] VITALS: BP 127/77; PULSE 62; TEMP 97.8
[2022-04-24] MEDS ORDERED: RIVAROXABAN 20 MG TABLET PO SCH ×2 (18:00)
== END 2022-04-24 16:07 | disposition home or self-care (01) ==
LOC: JER 23:01 → JERBED 04-23 02:15 → J4S 04-23 21:58
PROVIDERS: ADMIT Internal Medicine; ATTEND Internal Medicine
DX: I48.0 Paroxysmal atrial fibrillation (principal); M79.7 Fibromyalgia; I11.0 Hypertensive heart disease with heart failure; I50.30 Unspecified diastolic (congestive) heart failure; F41.9 Anxiety disorder, unspecified
CPT/HCPCS: 36415; 71045-TC-FY; 80053; 80061; 83036; 83735; 84100; 84443; 84484; 85025; 85610; 85730; 93005; 93010; 99285-25; C9803-CS; G0378; U0003; U0005

== ENCOUNTER 2022-05-20 04:13 | Day surgery (SDC) | payer OTHER ==
[2022-05-18 19:31] VITALS: BMI 32.9
[2022-05-20] MEDS ORDERED: VASOPRESSIN 20 UNITS/ML VIAL IV ONE (08:38)
[2022-05-20] MEDS ORDERED: MIDAZOLAM HCL 2 MG/2 ML SINGLE DOSE VIAL ONE (08:47)
[2022-05-20] MEDS ORDERED: DEXAMETHASONE SOD PHOSPHATE 4 MG/1 ML VIAL ONE (08:49)
[2022-05-20] MEDS ORDERED: PROPOFOL 20 ML ONE (08:49)
[2022-05-20] MEDS ORDERED: ONDANSETRON 4 MG/2 ML VIAL ONE ×2 (08:50→14:21)
[2022-05-20] MEDS ORDERED: LIDOCAINE HCL 1% EPINEPHRINE 1:200,000 30 ML VIAL (PF) ONE (10:34)
[2022-05-20] MEDS ORDERED: BACITRACIN 15 GM TUBE TOPICAL OINTMENT ONE (10:34)
[2022-05-20] MEDS ORDERED: ONDANSETRON 4 MG/2 ML VIAL IVPUSH PRN (10:39)
[2022-05-20] MEDS ORDERED: HEPARIN NA (PORCINE) 5,000 UNITS/ML 1ML VIAL ONE (10:58)
[2022-05-20] MEDS ORDERED: HEPARIN NA (PORCINE) 5,000 UNITS/ML 1ML VIAL SQ ONE (11:01)
[2022-05-20] MEDS ORDERED: ceFAZolin SODIUM 1 GM VIAL ONE ×2 (11:17)
[2022-05-20] MEDS ORDERED: LIDOCAINE HCL 1%, 10 MG/ML (20ML VIAL) ONE (11:18)
[2022-05-20] MEDS ORDERED: ceFAZolin SODIUM 1 GM VIAL IVPB ONE (11:40)
[2022-05-20] MEDS ORDERED: MEPERIDINE HCL 25 MG/ML VIAL ONE (13:28)
[2022-05-20] MEDS ORDERED: MEPERIDINE HCL 25 MG/ML VIAL IVPUSH ONE (13:40)
[2022-05-20 16:03] LABS: HEMATOCRIT 30.9 % (32.4-45.2); HEMOGLOBIN 9.7 GM/dL (10.7-15.3); MCH 24.8 pg (25.7-33.7); MCHC 31.6 g/dl (32.0-36.0); MEAN CELL VOLUME 78.5 fl (80-96); MEAN PLT VOLUME 8.2 fl (7.5-11.1); PLATELET COUNT 321 10^3/uL (134-434); RBC 3.93 M/mm3 (3.60-5.2); RDW 16.4 % (11.6-15.6); WHITE BLOOD COUNT 14.1 K/mm3 (4.0-10.0)
[2022-05-20] MEDS ORDERED: ACETAMINOPHEN INJECTION 100 ML IVPB ONE (16:25)
[2022-05-20] MEDS ORDERED: ACETAMINOPHEN 1000 MG/100 ML BAG IVPB ONE (16:30)
[2022-05-20] MEDS: LACTATED RINGERS SOLUTION 1,000 ML IV SCH (21:00)
[2022-05-21] MEDS ORDERED: oxyCODONE HCL 5 MG TABLET PO PRN (01:13)
[2022-05-21] MEDS ORDERED: ACETAMINOPHEN 325 MG TABLET (FP) PO PRN (01:14)
[2022-05-21] MEDS ORDERED: cefTRIAXone SODIUM 1 GM VIAL ONE (05:06)
[2022-05-21] MEDS: ACETAMINOPHEN 325 MG TABLET (FP) PO PRN ×2 (05:25→22:37)
[2022-05-21] MEDS ORDERED: CEFTRIAXONE 1 GM in DEXTROSE 5%-WATER - 50 ML IVPB ONE (06:00)
[2022-05-21 07:55] VITALS: RESP 18
[2022-05-21] MEDS: metoPROLOL SUCCINATE 25 MG TAB.SR.24H (FP) PO SCH (09:10)
[2022-05-21] MEDS: LISINOPRIL 20 MG TABLET PO SCH (09:10)
[2022-05-21] MEDS: oxyCODONE HCL 5 MG TABLET PO PRN ×2 (09:13→14:59)
[2022-05-21] MEDS: LACTATED RINGERS SOLUTION 1,000 ML IV SCH ×2 (09:18→17:13)
[2022-05-21] MEDS ORDERED: RIVAROXABAN 20 MG TABLET PO SCH (18:00)
[2022-05-22] MEDS: LACTATED RINGERS SOLUTION 1,000 ML IV SCH ×2 (01:42→12:49)
[2022-05-22 06:41] VITALS: BP 128/79; PULSE 84; TEMP 98.4
[2022-05-22] MEDS: oxyCODONE HCL 5 MG TABLET PO PRN (09:52)
[2022-05-22] MEDS: metoPROLOL SUCCINATE 25 MG TAB.SR.24H (FP) PO SCH (09:53)
[2022-05-22] MEDS: LISINOPRIL 20 MG TABLET PO SCH (09:53)
== END 2022-05-22 13:35 | disposition home or self-care (01) ==
LOC: JASU-SURG 04:13 → JASUSAT 04:13 → J6S 19:56 → JASUSAT 05-22 13:35
PROVIDERS: ATTEND Urology
PROC: 0JQC0ZZ Repair Pelvic Region Subcutaneous Tissue and Fascia, Open Approach (ICD-10-PCS; principal; 2022-05-20 10:00)
PROC: 0TSD0ZZ Reposition Urethra, Open Approach (ICD-10-PCS; 2022-05-20 10:00)
DX: N81.11 Cystocele, midline (principal); N39.3 Stress incontinence (female) (male)
CPT/HCPCS: 57240; 57288; C1771; 36415; 85027; 87086; 88108; 94760; J1644

== ENCOUNTER 2022-07-12 19:27 | Emergency (ER) | payer OTHER ==
[2022-07-12 19:39] VITALS: RESP 20; BMI 31.1
[2022-07-12] MEDS ORDERED: ALBUTEROL SO4 HFA INHALER IH ONE ×2 (20:52→20:56)
[2022-07-12] MEDS ORDERED: predniSONE 20 MG TABLET (UD) PO ONE (20:52)
[2022-07-12] MEDS ORDERED: predniSONE 20 MG TABLET (UD) ONE (20:56)
[2022-07-12 21:31] LABS: BASO % 0.3 % (0-2.0); EOS % 2.5 % (0-4.5); HEMATOCRIT 31.1 % (32.4-45.2); HEMOGLOBIN 9.5 GM/dL (10.7-15.3); LYMPH % 32.9 % (8-40); MCH 23.7 pg (25.7-33.7); MCHC 30.6 g/dl (32.0-36.0); MEAN CELL VOLUME 77.3 fl (80-96); MEAN PLT VOLUME 7.7 fl (7.5-11.1); MONO % 7.7 % (3.8-10.2); NEUT % 56.6 % (42.8-82.8); PLATELET COUNT 467 10^3/uL (134-434); RBC 4.02 M/mm3 (3.60-5.2); RDW 16.1 % (11.6-15.6); WHITE BLOOD COUNT 8.2 K/mm3 (4.0-10.0)
[2022-07-12 21:48] LABS: CALCIUM 8.4 mg/dL (8.5-10.1)
[2022-07-12 21:49] LABS: BLOOD UREA NITROGEN 12.8 mg/dL (7-18)
[2022-07-12 21:53] LABS: CREATININE 0.8 mg/dL (0.55-1.3)
[2022-07-12 21:54] LABS: BILIRUBIN,TOTAL 0.2 mg/dL (0.2-1); TOT PROT 6.6 g/dl (6.4-8.2)
[2022-07-12 23:31] VITALS: BP 140/53; PULSE 83; TEMP 99
== END 2022-07-12 23:35 | disposition home or self-care (01) ==
LOC: JER 19:27
PROC: 3E0F7GC Introduction of Other Therapeutic Substance into Respiratory Tract, Via Natural or Artificial Opening (ICD-10-PCS; principal; 2022-07-12)
DX: J40 Bronchitis, not specified as acute or chronic (principal)
CPT/HCPCS: 0241U-QW; 36415; 71046-TC-FY; 80053; 84484; 85025; 93005; 93010; 99285-25

== ENCOUNTER 2022-09-21 21:31 | Observation (INO) | payer OTHER ==
[2022-09-21 21:52] VITALS: BMI 32.9
[2022-09-21 22:28] LABS: BASO % 1.2 % (0-2.0); EOS % 2.5 % (0-4.5); HEMATOCRIT 32.8 % (32.4-45.2); HEMOGLOBIN 10.3 GM/dL (10.7-15.3); LYMPH % 35.4 % (8-40); MCH 22.6 pg (25.7-33.7); MCHC 31.3 g/dl (32.0-36.0); MEAN CELL VOLUME 72.2 fl (80-96); MEAN PLT VOLUME 7.8 fl (7.5-11.1); MONO % 7.4 % (3.8-10.2); NEUT % 53.5 % (42.8-82.8); PLATELET COUNT 345 10^3/uL (134-434); RBC 4.54 M/mm3 (3.60-5.2); WHITE BLOOD COUNT 8.4 K/mm3 (4.0-10.0)
[2022-09-21 22:39] LABS: INR 1.51 (0.83-1.09); PROTHROMBIN TIME (PATIENT) 17.5 SEC (9.7-13.0)
[2022-09-21 22:42] LABS: ACTIVATED PTT 38.5 SECONDS (25.2-36.5)
[2022-09-21 22:50] LABS: BLOOD UREA NITROGEN 14.4 mg/dL (7-18); CALCIUM 8.5 mg/dL (8.5-10.1)
[2022-09-21 22:51] LABS: ALBUMIN 3.3 g/dl (3.4-5.0); MAGNESIUM 2.3 mg/dL (1.8-2.4)
[2022-09-21 22:53] LABS: CREATININE 0.7 mg/dL (0.55-1.3)
[2022-09-21 22:55] LABS: BILIRUBIN,TOTAL 0.3 mg/dL (0.2-1); TOT PROT 6.4 g/dl (6.4-8.2)
[2022-09-21] MEDS ORDERED: ACETAMINOPHEN 1000 MG/100 ML BAG IVPB ONE (23:38)
[2022-09-22] MEDS ORDERED: ACETAMINOPHEN 325 MG TABLET (FP) PO PRN (00:35)
[2022-09-22] MEDS ORDERED: DOCUSATE SODIUM 100 MG CAPSULE (FP) PO PRN (00:35)
[2022-09-22] MEDS ORDERED: ACETAMINOPHEN INJECTION 100 ML IVPB ONE (01:03)
[2022-09-22] MEDS ORDERED: ALBUTEROL SO4 HFA INHALER IH PRN (06:28)
[2022-09-22 09:11] LABS: BASO % 1.1 % (0-2.0); EOS % 2.9 % (0-4.5); HEMATOCRIT 33.1 % (32.4-45.2); HEMOGLOBIN 10.4 GM/dL (10.7-15.3); LYMPH % 44.2 % (8-40); MCH 22.9 pg (25.7-33.7); MCHC 31.3 g/dl (32.0-36.0); MEAN CELL VOLUME 73.2 fl (80-96); MEAN PLT VOLUME 7.8 fl (7.5-11.1); MONO % 6.5 % (3.8-10.2); NEUT % 45.3 % (42.8-82.8); PLATELET COUNT 371 10^3/uL (134-434); RBC 4.53 M/mm3 (3.60-5.2); RDW 18.1 % (11.6-15.6); WHITE BLOOD COUNT 6.2 K/mm3 (4.0-10.0)
[2022-09-22] MEDS: metoPROLOL SUCCINATE 25 MG TAB.SR.24H (FP) PO SCH (09:48)
[2022-09-22] MEDS: PANTOPRAZOLE 40 MG TABLET PO SCH (09:48)
[2022-09-22] MEDS: ESCITALOPRAM OXALATE 10 MG TABLET PO SCH (09:48)
[2022-09-22] MEDS: LISINOPRIL 20 MG TABLET PO SCH (09:49)
[2022-09-22 10:06] LABS: BLOOD UREA NITROGEN 9.7 mg/dL (7-18); CALCIUM 8.6 mg/dL (8.5-10.1); CREATININE 0.5 mg/dL (0.55-1.3); MAGNESIUM 2.4 mg/dL (1.8-2.4); PHOSPHOROUS 4.1 mg/dL (2.5-4.9)
[2022-09-22 10:18] LABS: ACTIVATED PTT 33.8 SECONDS (25.2-36.5); INR 1.11 (0.83-1.09); PROTHROMBIN TIME (PATIENT) 12.9 SEC (9.7-13.0)
[2022-09-22] MEDS: CHLORTHALIDONE 25 MG TABLET PO SCH (11:56)
[2022-09-22] MEDS: RIVAROXABAN 20 MG TABLET PO SCH (17:49)
[2022-09-23] MEDS: LISINOPRIL 20 MG TABLET PO SCH (09:36)
[2022-09-23] MEDS: CHLORTHALIDONE 25 MG TABLET PO SCH (15:27)
[2022-09-23] MEDS: ESCITALOPRAM OXALATE 10 MG TABLET PO SCH (15:27)
[2022-09-23] MEDS: PANTOPRAZOLE 40 MG TABLET PO SCH (15:28)
[2022-09-23] MEDS: metoPROLOL SUCCINATE 25 MG TAB.SR.24H (FP) PO SCH (15:28)
[2022-09-23] MEDS: RIVAROXABAN 20 MG TABLET PO SCH (18:30)
[2022-09-23 23:34] VITALS: BP 135/79; PULSE 72; RESP 20; TEMP 98.6
== END 2022-09-24 00:05 | disposition home or self-care (01) ==
LOC: JER 21:31 → JERBED 23:35 → J4W 09-22 05:25
PROVIDERS: ADMIT Internal Medicine; ATTEND Internal Medicine
DX: I48.91 Unspecified atrial fibrillation (principal); I10 Essential (primary) hypertension; R01.1 Cardiac murmur, unspecified; E78.00 Pure hypercholesterolemia, unspecified; Z86.73 Personal history of transient ischemic attack (TIA), and cerebral infarction without residual deficits; Z87.891 Personal history of nicotine dependence; R42 Dizziness and giddiness; R07.9 Chest pain, unspecified
CPT/HCPCS: 0241U-QW; 36415; 70450-TC; 71045-TC-FY; 78452-TC; 80048; 80053; 80061; 82550; 82962; 83735; 84100; 84439; 84443; 84484; 85025; 85610; 85730; 93005; 93010; 93017; 93306-TC; 96374; 99285-25; A9502; G0378

== ENCOUNTER 2022-10-07 22:19 | Emergency (ER) | payer OTHER ==
[2022-10-07 22:28] VITALS: TEMP 97; BMI 32.9
[2022-10-08 00:03] VITALS: BP 138/75; PULSE 65; RESP 16
[2022-10-08 00:04] LABS: BASO % 0.9 % (0-2.0); EOS % 1.9 % (0-4.5); HEMATOCRIT 31.4 % (32.4-45.2); HEMOGLOBIN 10.2 GM/dL (10.7-15.3); MCH 23.8 pg (25.7-33.7); MCHC 32.6 g/dl (32.0-36.0); MEAN PLT VOLUME 8.1 fl (7.5-11.1); NEUT % 55.2 % (42.8-82.8); PLATELET COUNT 314 10^3/uL (134-434); RBC 4.31 M/mm3 (3.60-5.2); RDW 18.4 % (11.6-15.6); WHITE BLOOD COUNT 9.7 K/mm3 (4.0-10.0)
[2022-10-08 00:28] LABS: ALBUMIN 3.4 g/dl (3.4-5.0); BLOOD UREA NITROGEN 18.5 mg/dL (7-18); CALCIUM 8.6 mg/dL (8.5-10.1)
[2022-10-08 00:32] LABS: BILIRUBIN,TOTAL 0.4 mg/dL (0.2-1); CREATININE 0.7 mg/dL (0.55-1.3)
[2022-10-08 00:34] LABS: TOT PROT 6.7 g/dl (6.4-8.2)
[2022-10-08 01:17] LABS: PH,URINE 7.5 (5.0-8.0); URINE APPEARANCE CLEAR; URINE BILIRUBIN NEGATIVE (NEGATIVE); URINE COLOR YELLOW; URINE GLUCOSE (UA) NEGATIVE (NEGATIVE); URINE KETONE NEGATIVE (NEGATIVE); URINE LEUK ESTERASE NEGATIVE (NEGATIVE); URINE NITRITE NEGATIVE (NEGATIVE); URINE PROTEIN NEGATIVE (NEGATIVE); URINE UROBILINOGEN 0.2 mg/dL (0.2-1.0)
== END 2022-10-08 02:55 | disposition home or self-care (01) ==
LOC: JER 22:19
DX: R00.2 Palpitations (principal)
CPT/HCPCS: 0241U-QW; 36415; 71046-TC-FY; 80053; 81003; 84443; 84484; 85025; 87086; 93005; 93010; 99285-25

== ENCOUNTER 2023-03-10 21:01 | Emergency (ER) | payer OTHER ==
[2023-03-10 21:07] VITALS: BP 157/80; PULSE 66; RESP 18; TEMP 97.6; BMI 34.7
[2023-03-10] MEDS ORDERED: MECLIZINE HCL 25 MG TABLET (FP) PO ONE (22:01)
[2023-03-10 22:13] LABS: PH,URINE 6.5 (5.0-8.0); URINE APPEARANCE CLEAR; URINE BILIRUBIN NEGATIVE (NEGATIVE); URINE COLOR YELLOW; URINE GLUCOSE (UA) NEGATIVE (NEGATIVE); URINE KETONE NEGATIVE (NEGATIVE); URINE LEUK ESTERASE NEGATIVE (NEGATIVE); URINE NITRITE NEGATIVE (NEGATIVE); URINE PROTEIN NEGATIVE (NEGATIVE); URINE UROBILINOGEN 0.2 mg/dL (0.2-1.0)
[2023-03-10] MEDS ORDERED: MECLIZINE HCL 25 MG TABLET (FP) ONE (22:17)
[2023-03-10 22:28] LABS: BASO % 1.2 % (0-2.0); EOS % 1.2 % (0-4.5); HEMATOCRIT 33.1 % (32.4-45.2); HEMOGLOBIN 10.5 GM/dL (10.7-15.3); LYMPH % 32.5 % (8-40); MCH 24.6 pg (25.7-33.7); MCHC 31.8 g/dl (32.0-36.0); MEAN CELL VOLUME 77.3 fl (80-96); MEAN PLT VOLUME 7.8 fl (7.5-11.1); MONO % 6.6 % (3.8-10.2); NEUT % 58.5 % (42.8-82.8); PLATELET COUNT 332 10^3/uL (134-434); RBC 4.28 M/mm3 (3.60-5.2); RDW 17.5 % (11.6-15.6); WHITE BLOOD COUNT 9.2 K/mm3 (4.0-10.0)
[2023-03-10 22:37] LABS: INR 1.51 (0.83-1.09); PROTHROMBIN TIME (PATIENT) 17.4 SEC (9.7-13.0)
[2023-03-10 22:39] LABS: ACTIVATED PTT 34.9 SECONDS (25.2-36.5)
[2023-03-10 22:47] LABS: POTASSIUM 4.9 mmol/L (3.5-5.1)
[2023-03-10 22:49] LABS: ALBUMIN 3.5 g/dl (3.4-5.0); BLOOD UREA NITROGEN 13.3 mg/dL (7-18); CALCIUM 8.6 mg/dL (8.5-10.1)
[2023-03-10 22:52] LABS: CREATININE 0.7 mg/dL (0.55-1.3)
[2023-03-10 22:54] LABS: BILIRUBIN,TOTAL 0.6 mg/dL (0.2-1); TOT PROT 6.8 g/dl (6.4-8.2)
[2023-03-10 22:57] LABS: N-TERMINAL BNP 203.4 pg/ml (5-125)
[2023-03-10] MEDS ORDERED: SODIUM CHLORIDE 0.9% 500 ML INFUS.BAG IV ONE (23:19)
[2023-03-10] MEDS ORDERED: ONDANSETRON 4 MG/2 ML VIAL IVPUSH ONE (23:30)
[2023-03-10] MEDS ORDERED: ONDANSETRON 4 MG/2 ML VIAL ONE (23:45)
[2023-03-11] MEDS ORDERED: SODIUM CHLORIDE 0.9% 500 ML INFUS.BAG IV ONE (00:22)
== END 2023-03-11 00:49 | disposition home or self-care (01) ==
LOC: JER 21:01
PROC: 3E033GC Introduction of Other Therapeutic Substance into Peripheral Vein, Percutaneous Approach (ICD-10-PCS; principal; 2023-03-10)
DX: R42 Dizziness and giddiness (principal); R07.89 Other chest pain
CPT/HCPCS: 36415; 71045-TC-FY; 80053; 81003; 83880; 84484; 85025; 85610; 85730; 93005; 93010; 93970-TC; 99285-25

== ENCOUNTER 2023-06-25 13:46 | Emergency (ER) | payer OTHER ==
[2023-06-25 13:55] VITALS: BP 136/87; RESP 18; BMI 32.9
[2023-06-25] MEDS ORDERED: METOCLOPRAMIDE HCL INJECTION 10 MG/2 ML VIAL IVPB ONE (15:07)
[2023-06-25] MEDS ORDERED: IBUPROFEN 400 MG TABLET (FP) PO ONE ×2 (15:15→15:19)
[2023-06-25] MEDS ORDERED: METOCLOPRAMIDE HCL INJECTION 10 MG/2 ML VIAL ONE (15:18)
[2023-06-25] MEDS ORDERED: SODIUM CHLORIDE 0.9% 500 ML INFUS.BAG IV ONE (16:00)
[2023-06-25 16:02] LABS: BASO % 1.2 % (0-2.0); EOS % 0.2 % (0-4.5); HEMATOCRIT 38.3 % (32.4-45.2); HEMOGLOBIN 12.4 GM/dL (10.7-15.3); LYMPH % 13.5 % (8-40); MCH 26.1 pg (25.7-33.7); MCHC 32.3 g/dl (32.0-36.0); MEAN CELL VOLUME 80.9 fl (80-96); MEAN PLT VOLUME 8.1 fl (7.5-11.1); MONO % 3.8 % (3.8-10.2); NEUT % 81.3 % (42.8-82.8); PLATELET COUNT 329 10^3/uL (134-434); RBC 4.74 M/mm3 (3.60-5.2); RDW 15.6 % (11.6-15.6); WHITE BLOOD COUNT 10.8 K/mm3 (4.0-10.0)
[2023-06-25 16:30] LABS: POTASSIUM 4.1 mmol/L (3.5-5.1)
[2023-06-25 16:32] LABS: CALCIUM 8.5 mg/dL (8.5-10.1)
[2023-06-25 16:33] LABS: ALBUMIN 3.5 g/dl (3.4-5.0); BLOOD UREA NITROGEN 10.6 mg/dL (7-18)
[2023-06-25 16:36] LABS: CREATININE 0.7 mg/dL (0.55-1.3)
[2023-06-25 16:38] LABS: BILIRUBIN,TOTAL 1.2 mg/dL (0.2-1); TOT PROT 6.8 g/dl (6.4-8.2)
[2023-06-25 17:30] VITALS: PULSE 81; TEMP 99.4
== END 2023-06-25 17:42 | disposition home or self-care (01) ==
LOC: JER 13:46
PROC: 3E033GC Introduction of Other Therapeutic Substance into Peripheral Vein, Percutaneous Approach (ICD-10-PCS; principal; 2023-06-25)
DX: M79.10 Myalgia, unspecified site (principal); R51.9 Headache, unspecified; R50.9 Fever, unspecified; J02.9 Acute pharyngitis, unspecified; R11.10 Vomiting, unspecified; U07.1 COVID-19
CPT/HCPCS: 0241U-QW; 36415; 71046-TC-FY; 80053; 83880; 84484; 85025; 87207; 93005; 93010; 99285-25

== ENCOUNTER 2023-08-19 00:15 | Observation (INO) | payer OTHER ==
[2023-08-19 02:01] LABS: BASO % 0.9 % (0-2.0); EOS % 1.2 % (0-4.5); HEMATOCRIT 37.3 % (32.4-45.2); LYMPH % 31.5 % (8-40); MCH 26.4 pg (25.7-33.7); MCHC 32.1 g/dl (32.0-36.0); MEAN CELL VOLUME 82.3 fl (80-96); MONO % 6.9 % (3.8-10.2); NEUT % 59.5 % (42.8-82.8); PLATELET COUNT 313 10^3/uL (134-434); RBC 4.53 M/mm3 (3.60-5.2); RDW 14.8 % (11.6-15.6); WHITE BLOOD COUNT 8.8 K/mm3 (4.0-10.0)
[2023-08-19 02:06] LABS: INR 1.2 (0.83-1.09); PROTHROMBIN TIME (PATIENT) 13.9 SEC (9.7-13.0)
[2023-08-19 02:17] LABS: POTASSIUM 4.2 mmol/L (3.5-5.1)
[2023-08-19 02:19] LABS: CALCIUM 8.6 mg/dL (8.5-10.1)
[2023-08-19 02:20] LABS: ALBUMIN 3.3 g/dl (3.4-5.0); BLOOD UREA NITROGEN 14.1 mg/dL (7-18)
[2023-08-19 02:23] LABS: CREATININE 0.6 mg/dL (0.55-1.3)
[2023-08-19 02:24] LABS: BILIRUBIN,TOTAL 0.5 mg/dL (0.2-1)
[2023-08-19 02:25] LABS: TOT PROT 6.8 g/dl (6.4-8.2)
[2023-08-19 02:28] LABS: N-TERMINAL BNP 85.6 pg/ml (5-125)
[2023-08-19] MEDS ORDERED: DOCUSATE SODIUM 100 MG CAPSULE (FP) PO PRN (02:59)
[2023-08-19 04:53] LABS: PHOSPHOROUS 3.6 mg/dL (2.5-4.9)
[2023-08-19] MEDS ORDERED: GABAPENTIN 100 MG CAPSULE PO PRN (07:20)
[2023-08-19] MEDS: PANTOPRAZOLE 20 MG TABLET PO SCH (10:37)
[2023-08-19] MEDS: RIVAROXABAN 20 MG TABLET PO SCH (10:37)
[2023-08-19] MEDS: metoPROLOL SUCCINATE 25 MG TAB.SR.24H (FP) PO SCH (10:38)
[2023-08-19] MEDS: LISINOPRIL 20 MG TABLET PO SCH (10:39)
[2023-08-19] MEDS: FUROSEMIDE 40 MG/4 ML INJECTABLE VIAL IVPUSH SCH (12:30)
[2023-08-19 18:05] VITALS: BMI 33.3
[2023-08-20] MEDS: ACETAMINOPHEN 325 MG TABLET (FP) PO PRN (04:51)
[2023-08-20 07:27] VITALS: RESP 18
[2023-08-20 08:33] LABS: BASO % 0.9 % (0-2.0); HEMATOCRIT 38.1 % (32.4-45.2); HEMOGLOBIN 12.5 GM/dL (10.7-15.3); MCH 26.9 pg (25.7-33.7); MCHC 32.8 g/dl (32.0-36.0); MEAN CELL VOLUME 82.1 fl (80-96); MEAN PLT VOLUME 7.8 fl (7.5-11.1); MONO % 6.7 % (3.8-10.2); NEUT % 56.4 % (42.8-82.8); PLATELET COUNT 305 10^3/uL (134-434); RBC 4.64 M/mm3 (3.60-5.2); WHITE BLOOD COUNT 8.1 K/mm3 (4.0-10.0)
[2023-08-20 08:59] LABS: POTASSIUM 4.6 mmol/L (3.5-5.1)
[2023-08-20 09:03] LABS: BLOOD UREA NITROGEN 16.6 mg/dL (7-18); CALCIUM 8.8 mg/dL (8.5-10.1)
[2023-08-20 09:06] LABS: CHOLESTEROL 195 mg/dL (50-200); CREATININE 0.6 mg/dL (0.55-1.3)
[2023-08-20 09:08] LABS: LDL CHOLESTEROL (ONLY SJRH) 129 mg/dL (5-100)
[2023-08-20 09:10] LABS: HDL CHOLESTEROL 48 mg/dL (40-60)
[2023-08-20 11:53] VITALS: BP 119/91; PULSE 74; TEMP 97.8
== END 2023-08-20 14:38 | disposition home or self-care (01) ==
LOC: JER 00:15 → JERBED 01:51 → J4S 09:13
PROVIDERS: ADMIT Internal Medicine; ATTEND Internal Medicine
PROC: 3E033GC Introduction of Other Therapeutic Substance into Peripheral Vein, Percutaneous Approach (ICD-10-PCS; principal; 2023-08-19)
DX: I48.0 Paroxysmal atrial fibrillation (principal); I10 Essential (primary) hypertension; E78.5 Hyperlipidemia, unspecified; Z79.01 Long term (current) use of anticoagulants; R01.1 Cardiac murmur, unspecified; I00 Rheumatic fever without heart involvement; K57.90 Diverticulosis of intestine, part unspecified, without perforation or abscess without bleeding; I16.0 Hypertensive urgency; E66.3 Overweight; M79.7 Fibromyalgia; G25.81 Restless legs syndrome
CPT/HCPCS: 36415; 71046-TC-FY; 80048; 80053; 80061; 83036; 83735; 83880; 84100; 84443; 84484; 85025; 85379; 85610; 85730; 93005; 93010; 96374; 99285-25; G0378

== ENCOUNTER 2023-08-24 18:34 | Emergency (ER) | payer OTHER ==
[2023-08-24 18:43] VITALS: RESP 16; TEMP 97.6; BMI 31.1
[2023-08-24 20:45] LABS: BASO % 1.1 % (0-2.0); EOS % 1.7 % (0-4.5); HEMATOCRIT 32.4 % (32.4-45.2); HEMOGLOBIN 10.6 GM/dL (10.7-15.3); LYMPH % 36.8 % (8-40); MCH 26.7 pg (25.7-33.7); MCHC 32.8 g/dl (32.0-36.0); MEAN CELL VOLUME 81.3 fl (80-96); MEAN PLT VOLUME 8.1 fl (7.5-11.1); MONO % 7.1 % (3.8-10.2); NEUT % 53.3 % (42.8-82.8); PLATELET COUNT 273 10^3/uL (134-434); RBC 3.98 M/mm3 (3.60-5.2); RDW 15.6 % (11.6-15.6); WHITE BLOOD COUNT 8.7 K/mm3 (4.0-10.0)
[2023-08-24 21:06] LABS: CALCIUM 8.2 mg/dL (8.5-10.1)
[2023-08-24 21:07] LABS: ALBUMIN 3.2 g/dl (3.4-5.0); BLOOD UREA NITROGEN 16.4 mg/dL (7-18); MAGNESIUM 1.9 mg/dL (1.8-2.4)
[2023-08-24 21:10] LABS: CREATININE 0.6 mg/dL (0.55-1.3)
[2023-08-24 21:11] LABS: BILIRUBIN,TOTAL 0.4 mg/dL (0.2-1)
[2023-08-24 21:57] LABS: N-TERMINAL BNP 145.5 pg/ml (5-125)
[2023-08-24 23:08] VITALS: BP 164/78; PULSE 86
== END 2023-08-24 23:17 | disposition home or self-care (01) ==
LOC: JER 18:34
DX: R42 Dizziness and giddiness (principal); R53.1 Weakness
CPT/HCPCS: 36415; 80053; 82550; 83735; 83880; 84100; 84484; 85025; 93005; 93010; 99284-25

== ENCOUNTER 2024-01-08 22:35 | Emergency (ER) | payer OTHER ==
[2024-01-08 22:46] VITALS: BP 156/79; PULSE 88; RESP 18; TEMP 98.6; BMI 32.9
[2024-01-08 23:24] LABS: BASO % 1.1 % (0-2.0); EOS % 2.5 % (0-4.5); HEMOGLOBIN 11.8 GM/dL (10.7-15.3); LYMPH % 40.3 % (8-40); MCH 27.3 pg (25.7-33.7); MCHC 32.8 g/dl (32.0-36.0); MEAN CELL VOLUME 83.1 fl (80-96); MEAN PLT VOLUME 7.8 fl (7.5-11.1); MONO % 6.7 % (3.8-10.2); NEUT % 49.4 % (42.8-82.8); PLATELET COUNT 289 10^3/uL (134-434); RBC 4.33 M/mm3 (3.60-5.2); WHITE BLOOD COUNT 7.9 K/mm3 (4.0-10.0)
[2024-01-08 23:32] LABS: INR 1.32 (0.83-1.09); PROTHROMBIN TIME (PATIENT) 14.8 SEC (9.7-13.0)
[2024-01-08 23:34] LABS: ACTIVATED PTT 37.2 SECONDS (25.2-36.5)
[2024-01-09 00:20] LABS: PH,URINE 6.5 (5.0-8.0); URINE APPEARANCE CLEAR; URINE BILIRUBIN NEGATIVE (NEGATIVE); URINE COLOR YELLOW; URINE GLUCOSE (UA) NEGATIVE (NEGATIVE); URINE KETONE NEGATIVE (NEGATIVE); URINE LEUK ESTERASE NEGATIVE (NEGATIVE); URINE NITRITE NEGATIVE (NEGATIVE); URINE PROTEIN NEGATIVE (NEGATIVE); URINE UROBILINOGEN 0.2 mg/dL (0.2-1.0)
[2024-01-09 00:46] LABS: ALBUMIN 3.4 g/dl (3.4-5.0); BILIRUBIN,TOTAL 0.6 mg/dL (0.2-1); BLOOD UREA NITROGEN 18.8 mg/dL (7-18); CALCIUM 8.6 mg/dL (8.5-10.1); CREATININE 0.7 mg/dL (0.55-1.3); MAGNESIUM 2.1 mg/dL (1.8-2.4); PHOSPHOROUS 3.1 mg/dL (2.5-4.9); POTASSIUM 4.3 mmol/L (3.5-5.1); TOT PROT 6.6 g/dl (6.4-8.2)
== END 2024-01-09 02:39 | disposition home or self-care (01) ==
LOC: JER 22:35
DX: R00.2 Palpitations (principal); R10.13 Epigastric pain; R06.02 Shortness of breath; R51.9 Headache, unspecified
CPT/HCPCS: 36415; 71046-TC-FY; 80053; 81003; 83735; 84100; 84484; 85025; 85610; 85730; 87086; 93005; 93010; 99285-25

== ENCOUNTER 2024-05-14 17:12 | Emergency (ER) | payer OTHER ==
[2024-05-14 17:17] VITALS: BP 147/96; PULSE 68; RESP 16; TEMP 98.6; BMI 32.9
[2024-05-14 19:12] LABS: BASO % 0.6 % (0-2.0); EOS % 1.8 % (0-4.5); HEMOGLOBIN 11.9 GM/dL (10.7-15.3); LYMPH % 45.4 % (8-40); MCHC 33.1 g/dl (32.0-36.0); MEAN CELL VOLUME 84.4 fl (80-96); MEAN PLT VOLUME 8.1 fl (7.5-11.1); MONO % 6.8 % (3.8-10.2); NEUT % 45.4 % (42.8-82.8); PLATELET COUNT 294 10^3/uL (134-434); RBC 4.26 M/mm3 (3.60-5.2); RDW 14.5 % (11.6-15.6); WHITE BLOOD COUNT 8.1 K/mm3 (4.0-10.0)
[2024-05-14 19:32] LABS: POTASSIUM 4.5 mmol/L (3.5-5.1)
[2024-05-14 19:33] LABS: CALCIUM 8.5 mg/dL (8.5-10.1)
[2024-05-14 19:34] LABS: ALBUMIN 3.6 g/dl (3.4-5.0); BLOOD UREA NITROGEN 15.3 mg/dL (7-18)
[2024-05-14 19:37] LABS: CREATININE 0.6 mg/dL (0.55-1.3)
[2024-05-14 19:39] LABS: BILIRUBIN,TOTAL 0.5 mg/dL (0.2-1); TOT PROT 6.8 g/dl (6.4-8.2)
[2024-05-14 19:53] LABS: LACTIC ACID 2.5 mmol/L (0.4-2.0)
[2024-05-14 20:32] LABS: HIV INTERPRETATION NEGATIVE (NEGATIVE)
== END 2024-05-14 21:40 | disposition home or self-care (01) ==
LOC: JER 17:12
DX: K92.1 Melena (principal)
CPT/HCPCS: 36415; 80053; 82272; 83605; 85025; 86803; 87389; 93005; 93010; 99284-25